=== PATIENT | male | born 1945 | race Caucasian/White ===

== ENCOUNTER 2023-03-28 13:49 | Outpatient (REF) | payer BC, SELFPAY ==
--- NOTE | ~2023-03-28 | XR_ITS ---
EXAMINATION: XR LUMBOSACRAL SPINE WITH OBLIQUES CLINICAL INFORMATION: Spinal stenosis, lumbar region with there are degenerative claudication. COMPARISON: None available. TECHNIQUE: AP view of the lumbar spine as well as lateral, flexion and extension views. FINDINGS: The bones are diffusely demineralized. Slight rightward curvature of the lumbar spine. Advanced degenerative changes in the imaged lower thoracic spine. Advanced facet arthritis in the [id number] lumbar spine. Multilevel lumbar spondylosis with moderate loss of disc space height at L4-L5. Grade 1 anterolisthesis of L4 and L5. Mild grade 1 retrolisthesis of L3 on L4. XR/XR lumbar spine 4V min IMPRESSION: 1. Advanced facet arthritis in the [id number] lumbar spine. 2. Multilevel lumbar spondylosis.
== END 2023-03-28 13:50 | disposition home or self-care (01) ==
LOC: HO.HOSX 13:49
PROVIDERS: PCP Student in an Organized Health Care Education/Training Program; Visit Provider Neurological Surgery
DX: M48.062 Spinal stenosis, lumbar region with neurogenic claudication (principal)
CPT/HCPCS: 72110

== ENCOUNTER 2023-03-28 13:49 | Outpatient (AMB) | payer BC, SELFPAY ==
--- NOTE | 2023-03-28 14:04 | HO.SPINEOV ---
Intake Intake Visit Reasons: spinal stenosis Intake Note: Mr. Colunga is here today c/o low back pain. MRI done @ [facility]. 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 HPI: This 77-year-old retired [employer] developed progressive numbness down both legs with walking and standing since June 2022. The symptoms are disabling. He can hardly walk or stand and constantly has to sit down. Leaning over a shopping cart improves the symptoms slightly. He adjusted his lifestyle to cope with the symptoms. One of them is walking with a cane or crutches. An MRI of the lumbar spine shows severe spinal stenosis L4-5, which prompted a surgical consultation. The following conservative treatment options were tried without success antiinflammatories, tylenol, physical therapy, cortisone shots PMH: Hypertension, bilateral knee replacements and multiple right hand surgery for tendons. Medications: Antihypertensivum Allergies: Penicillin, sulfa and shellfish Social history: . Retired. Nonsmoker Physical Exam: Pleasant male. He ambulates with a cane and has a positive Trendelenburg on exam. He is able to reproduce the symptoms in the office with standing. He describes that his legs are falling asleep. No motor deficits. No pathological reflexes. Upper extremities are intact for motor, sensation and reflexes. Radiological Studies: MRI of the lumbar spine done at [facility] on 12/30/2022 shows severe L4-L5 central spinal stenosis. There is a mild anterolisthesis of L4-L5. The remainder segments of the lumbar spine are unaffected. A standing dynamic x-ray obtained today shows no signs of instability. Impression/Plan: This 77-year-old male is suffering neurogenic claudication caused by severe L4-5 spinal stenosis. I offered him a L4-5 lumbar decompression to decompress the central canal. I described the procedure, complications and expected postoperative course. He wants to proceed. He is scheduled for 06/07/2023. He will stop his aspirin 1 week prior to surgery. Thank you for allowing me to participate in your patients care. total time spent was 50 minutes in counseling ,coordination of plan, personal review of imaging, surgical decision making and subsequent plan Angel Guevara MD, PhD Spine Fellowship Trained Neurosurgeon Director, [facility] Orders: Orders XR lumbar spine 4V min Today M48.062 - Spinal stenosis, lumbar region with neurogenic claudication Coding Level of Care Code New Pt Level 5 (52670) Diagnoses Lumbar stenosis with neurogenic claudication M48.062
== END 2023-03-28 15:00 ==
PROVIDERS: PCP Student in an Organized Health Care Education/Training Program; Referring Provider Physician Assistant; Visit Provider Neurological Surgery
DX: M48.062 Spinal stenosis, lumbar region with neurogenic claudication (principal)
CPT/HCPCS: 99205

== ENCOUNTER → 2023-05-17 13:07 | Outpatient (BNV) | payer MEDICARE, SELFPAY | PROVIDERS: PCP Student in an Organized Health Care Education/Training Program; Visit Provider Internal Medicine Cardiovascular Disease | DX: R94.31 Abnormal electrocardiogram [ECG] [EKG] (principal); I45.10 Unspecified right bundle-branch block | CPT/HCPCS: 93010 ==

== ENCOUNTER 2023-05-31 06:35 | Day surgery (SDC) | payer MEDICARE, SELFPAY ==
--- NOTE | 2023-05-17 | ECG_ITS ---
Test Reason : PREOP Blood Pressure : / mmHG Vent. Rate : 065 BPM Atrial Rate : 065 BPM P-R Int : 154 ms QRS Dur : 132 ms QT Int : 420 ms P-R-T Axes : 047 010 -02 degrees QTc Int : 436 ms Normal sinus rhythm Right bundle branch block Abnormal ECG No previous ECGs available Referred By: Bharti Nguyen Electronically Signed By:Miguel Bowen
[2023-05-17 12:33] VITALS: BP 118/64; PULSE 68; RESP 18; O2SAT 96; BMI 28.1
--- NOTE | 2023-05-17 12:45 | P.CONAN_ITS ---
HPI - Anesthesia Eval Consult details Narrative: 78yo M for L4-5 Lumbar Decompression No recent illness Stable angina ~ 8 days ago. Resolved with 1 nitro. Occurs ~ 1 x monthly Follows [facility]. Last office visit 12/2022. Echo and Stress 01/2023 OK. CAD s/p cath x 2. Stents x 2 2014 Gerd. Well controlled with ppi PMFSH Active Problems Active Problems: All Active Problems (Updated 05/17/23 @ 12:32 by Kelly Garcia RN) Lumbar stenosis with neurogenic claudication (Acute) Past Medical History Medical History GERD (gastroesophageal reflux disease) Back pain Renal cyst Osteoarthritis Diverticulosis BPH (benign prostatic hyperplasia) Numbness CAD (coronary artery disease) HTN (hypertension) Arthritis Family History Family history of problems with anesthesia: No Surgical History Surgical History Hx of shoulder surgery Hx of cataract extraction Hx of cardiac catheterization H/O colonoscopy Hx of hand surgery History of bilateral knee replacement Hx of hernia repair History of coronary artery stent placement Hx of cholecystectomy Hx of carpal tunnel repair History of Problems with Anesthesia: No (1 x vomit with oxycodone) Social History Social History Are you a primary hospice spiritual care coordinator to a significant other at home: No Do you presently have visiting nurse or other home services: No Patient Tobacco Use Status: Never used Tobacco Meds Allergies Allergy/AdvReac Type Severity Reaction Status Date / Time Penicillins Allergy Unknown Verified 05/31/23 06:51 shellfish derived Allergy Unknown Verified 05/31/23 06:51 Sulfa (Sulfonamide Allergy Unknown Verified 05/31/23 06:51 Antibiotics) Home Medications Medication Instructions Recorded Confirmed Last Taken Type acetaminophen 650 mg 650 mg PO DAILY PRN Pain 05/17/23 05/17/23 Unknown History tablet,extended release amlodipine 10 mg tablet 10 mg PO BEDTIME 05/17/23 05/17/23 Unknown History aspirin 81 mg tablet,delayed 81 mg PO BEDTIME 05/17/23 05/31/23 05/29/23 History release celecoxib 200 mg capsule 200 mg PO DAILY 05/17/23 05/17/23 Unknown History cholecalciferol (vitamin D3) 50 50 mcg PO DAILY 05/17/23 05/31/23 05/30/23 History mcg (2,000 unit) capsule (Vitamin D3) diclofenac sodium 1 % topical gel 2 g topical QID PRN Pain 05/17/23 05/17/23 Unknown History fluticasone propionate 50 2 spray intranasal DAILY PRN 05/17/23 05/17/23 Unknown History mcg/actuation nasal Allergic Symptoms spray,suspension gabapentin 300 mg capsule 300 mg PO BEDTIME PRN low back pain 05/17/23 05/31/23 05/30/23 History hydrochlorothiazide 12.5 mg capsule 12.5 mg PO QAM 05/17/23 05/31/23 05/30/23 History isosorbide mononitrate 30 mg 90 mg PO DAILY 05/17/23 05/31/23 05/31/23 History tablet,extended release 24 hr menthol 0.44 %-zinc oxide 20 % ea topical 05/17/23 Unknown History topical ointment metoprolol succinate 50 mg 50 mg PO DAILY 05/17/23 05/31/23 05/31/23 History tablet,extended release 24 hr multivitamin 1 tab PO DAILY 05/17/23 05/31/23 05/30/23 History nitroglycerin 0.4 mg sublingual 0.4 mg sublingual DIRECTED 05/17/23 05/17/23 Unknown History tablet omeprazole 40 mg capsule,delayed 40 mg PO DAILY 05/17/23 05/31/23 05/31/23 History release rosuvastatin 20 mg tablet 20 mg PO BEDTIME 05/17/23 05/31/23 05/30/23 History Exam Height,Weight and Vital Signs: Height 5 ft 9 in Weight 86.183 kg Last Vital Signs Pulse 68 05/17/23 12:33 Resp 18 05/17/23 12:33 BP 118/64 05/17/23 12:33 Pulse Ox 96 05/17/23 12:33 O2 Del Method Room Air 05/17/23 12:33 Pertinent Lab Results Pertinent Lab Results: 11/2022 outside CBC and BMP wnl except slight increase in creat. Narrative Narrative: EKG 04/2023 Vent. Rate : 065 BPM Atrial Rate : 065 BPM P-R Int : 154 ms QRS Dur : 132 ms QT Int : 420 ms P-R-T Axes : 047 010 -02 degrees QTc Int : 436 ms Normal sinus rhythm Right bundle branch block Abnormal ECG No previous ECGs available ECHO 02/2023 With contrast Nml LV chamber size. Mild conc LVH. Nml RWM. Nml LV systolic function. LVEF 55- 60%. Indeterminate LV diastolic function. Nml RV size and function. PASP could not be obstained. LA nml in size No hemodynamically significant valve disease Nuc stress 01/2023 Likely negative exercise stress with nuc imaging Nuc imaging revealed likely nml perfusion after attenuation correction was applied. A small, mild focus of apical inferior ischemia could not be excluded, however. Nml TID ratio RV function is nml Nml LV systolic fuction and RWM Airway Mallampati Class: II TM Dist: >3cm Neck ROM: Full Loose/Missing/Broken Teeth: Yes (molars pulled) Heart: RRR Lungs: CTAB Assessment and Plan Assessment Anesthesia Assessment: Anesthesia Plan Discussed and PAT Visit Final Anesthetic Review Family History of Problems with Anesthesia: No History of Problems with Anesthesia: No (1 x vomit with oxycodone)
[2023-05-31] VITALS (18 sets, daily range): BP systolic 109–132; BP diastolic 60–74; PULSE 61–80; RESP 16–18; TEMP 36.1–36.6; O2SAT 93–97; BMI 28.0
--- NOTE | ~2023-05-31 | FL_ITS ---
CLINICAL INDICATION: Claudication. FINDINGS: Technical assistance and equipment were provided by the Department of Radiology during intraoperative fluoroscopy for reported L4-L5 lumbar decompression. 1, limited fluoroscopic spot image is submitted. A radiologist was not present during the procedure. The image demonstrates surgical retractors and probe over the posterior elements at L4-L5. The image is available for review on PACS. TOTAL FLUOROSCOPY TIME: 0 minutes. DOSE AREA PRODUCT: 0.04 Gy-cm2 (leo-centimeter squared) FL/FL guidance in OR IMPRESSION: Technical assistance and equipment provided by the Department of Radiology during intraoperative fluoroscopy, as above. Please see operative report for further details.
[2023-05-31] MEDS: methocarbamoL 750 MG TABLET PO (07:20)
[2023-05-31] MEDS: vancomycin HCL 1,500 MG in 0.9 % Sodium Chloride 500 ML 333.33 MG IV (07:20)
[2023-05-31] MEDS: Gabapentin 300 MG CAPSULE PO (07:20)
[2023-05-31] MEDS: Lactated Ringers 1,000 ML 100 ML IVCONT (07:20)
--- NOTE | 2023-05-31 07:30 | MHC.SHP ---
Pre-Procedural Eval Section A - 24 Hr Update-Section A only Date of Service: 05/31/23 The patient is an INPATIENT: No Changes since office visit: No Cold of Flu in the past 2 weeks, No New Medical Problems, No Changes in Medication and No Patient answered all questions The patient has been examined within 24 hours of the surgical procedure. The History & Physical has been completed within 30 days and I have reviewed it.: No Section B - Complete if H&P > 30 days Chief Complaint: Spinal stenosis, lumbar region with neurogenic cla Allergies: Allergies Allergy/AdvReac Type Severity Reaction Status Date / Time Penicillins Allergy Unknown Verified 05/31/23 06:51 shellfish derived Allergy Unknown Verified 05/31/23 06:51 Sulfa (Sulfonamide Allergy Unknown Verified 05/31/23 06:51 Antibiotics) Review of Systems Sugical H&P ROS: Negative: Constitution, Cardiovascular, Respiratory, Neurological, Psychiatric, Hem-Onc, Allergic/Immunologic, Gastrointestinal, Genitourinary, Musculoskeletal, Integumentary, Endocrine and Eyes/Ears/Nose/Throat Exam Surgical H&P Exam: Not Evaluated: HEENT, Not Evaluated: Heart, Not Evaluated: Lungs, Not Evaluated: Extremities, Not Evaluated: Abdomen, Not Evaluated: Skin and Not Evaluated: Neurological Plan Diagnosis/Plan: Unchanged bilateral L4-5 decompression Time Spent With Patient Time: Total time managing care of this patient today _5___ minutes.
--- NOTE | 2023-05-31 07:32 | P.CONAN_ITS ---
[facility] Active Problems Active Problems: All Active Problems (Updated 05/17/23 @ 12:32 by Kelly Garcia RN) Lumbar stenosis with neurogenic claudication (Acute) Past Medical History Medical History GERD (gastroesophageal reflux disease) Back pain Renal cyst Osteoarthritis Diverticulosis BPH (benign prostatic hyperplasia) Numbness CAD (coronary artery disease) HTN (hypertension) Arthritis Family History Family history of problems with anesthesia: No Surgical History Surgical History Hx of shoulder surgery Hx of cataract extraction Hx of cardiac catheterization H/O colonoscopy Hx of hand surgery History of bilateral knee replacement Hx of hernia repair History of coronary artery stent placement Hx of cholecystectomy Hx of carpal tunnel repair History of Problems with Anesthesia: No (1 x vomit with oxycodone) Social History Social History Are you a primary day care home provider to a significant other at home: No Do you presently have visiting nurse or other home services: No Patient Tobacco Use Status: Never used Tobacco Use of substances other than those prescribed or required for medical reasons: No Have you been hit, kicked, punched, or otherwise hurt by someone within the past year? If so, by whom?: No Are you DNR?: No Advance Directives: No Advance Directives Information Provided: Yes Advance Directives on File: No Recently lost weight without trying: No Eating poorly because of decreased appetite: No Nutrition Risks: No Nutritional Risk Poor oral hygiene: No Meds Allergies Allergy/AdvReac Type Severity Reaction Status Date / Time Penicillins Allergy Unknown Verified 05/31/23 06:51 shellfish derived Allergy Unknown Verified 05/31/23 06:51 Sulfa (Sulfonamide Allergy Unknown Verified 05/31/23 06:51 Antibiotics) Active Medications: Current Medications Lactated Ringer's (Lr) 1,000 mls @ 100 mls/hr IVCONT .Q10H [facility] Last Admin: 05/31/23 07:20 Dose: 100 mls/hr Vancomycin HCl 1,500 mg/ (Sodium Chloride) 500 mls @ 333.333 mls/hr IV PREOP ONE Stop: 05/31/23 08:28 Last Admin: 05/31/23 07:20 Dose: 333.33 mls/hr Home Medications Medication Instructions Recorded Confirmed Last Taken Type acetaminophen 650 mg 650 mg PO DAILY PRN Pain 05/17/23 05/17/23 Unknown History tablet,extended release amlodipine 10 mg tablet 10 mg PO BEDTIME 05/17/23 05/17/23 Unknown History aspirin 81 mg tablet,delayed 81 mg PO BEDTIME 05/17/23 05/31/23 05/29/23 History release celecoxib 200 mg capsule 200 mg PO DAILY 05/17/23 05/17/23 Unknown History cholecalciferol (vitamin D3) 50 50 mcg PO DAILY 05/17/23 05/31/23 05/30/23 History mcg (2,000 unit) capsule (Vitamin D3) diclofenac sodium 1 % topical gel 2 g topical QID PRN Pain 05/17/23 05/17/23 Unknown History fluticasone propionate 50 2 spray intranasal DAILY PRN 05/17/23 05/17/23 Unknown History mcg/actuation nasal Allergic Symptoms spray,suspension gabapentin 300 mg capsule 300 mg PO BEDTIME PRN low back pain 05/17/23 05/31/23 05/30/23 History hydrochlorothiazide 12.5 mg capsule 12.5 mg PO QAM 05/17/23 05/31/23 05/30/23 History isosorbide mononitrate 30 mg 90 mg PO DAILY 05/17/23 05/31/23 05/31/23 History tablet,extended release 24 hr menthol 0.44 %-zinc oxide 20 % ea topical 05/17/23 Unknown History topical ointment metoprolol succinate 50 mg 50 mg PO DAILY 05/17/23 05/31/23 05/31/23 History tablet,extended release 24 hr multivitamin 1 tab PO DAILY 05/17/23 05/31/23 05/30/23 History nitroglycerin 0.4 mg sublingual 0.4 mg sublingual DIRECTED 05/17/23 05/17/23 Unknown History tablet omeprazole 40 mg capsule,delayed 40 mg PO DAILY 05/17/23 05/31/23 05/31/23 History release rosuvastatin 20 mg tablet 20 mg PO BEDTIME 05/17/23 05/31/23 05/30/23 History Exam Height,Weight and Vital Signs: Height 5 ft 9 in Weight 86 kg Last Vital Signs Temp 97.9 F 05/31/23 07:27 Pulse 74 05/31/23 07:27 Resp 16 05/31/23 07:27 BP 126/72 05/31/23 07:27 Pulse Ox 96 05/31/23 07:27 O2 Del Method Room Air 05/31/23 07:27 Airway Mallampati Class: III TM Dist: >3cm Neck ROM: Full Heart: RRR Lungs: TA Assessment and Plan Final Anesthetic Review Family History of Problems with Anesthesia: No History of Problems with Anesthesia: No (1 x vomit with oxycodone) NPO: Yes ASA Class: III Final Preanesthetic Review: Meds/Allgs Chart Reviewed, Consent Obtained/Reviewed and Anes Risks/Benef Reviewed Patient Risk: Intermediate Procedure Risk: Intermediate Anesthetic Plan Anesthetic Plan: GA Disposition: Standard PACU
--- NOTE | 2023-05-31 08:44 | PM.DS ---
DS: Providers Provider Date of Service: 05/31/23 Date of discharge: 05/31/23 Primary care physician: Ale Kim DO Admitting clinician: Angel Guevara DS: Diagnosis Discharge Diagnosis (1) Lumbar stenosis with neurogenic claudication: Status: Acute DS: Summary Time Attestation Discharge coordination time: Less than 30 minutes Quality: Safe Use of Opioids Does Pt have an Active Cancer Diagnosis on the Problem List?: No Quality: Stroke Does the patient have a stroke diagnosis?: No Physical Exam Vital Signs: Vital Signs: Last Vital Signs Temp 97.9 F 05/31/23 07:27 Pulse 74 05/31/23 07:27 Resp 16 05/31/23 07:27 BP 126/72 05/31/23 07:27 Pulse Ox 96 05/31/23 07:27 O2 Del Method Room Air 05/31/23 07:27 BMI result Body Mass Index 28.0 Discharge Plan Discharge Patient Disposition: Home, Self-Care Referrals: Ale Kim DO [Primary Care Provider] - 1 Week Discharge Medications: New docusate sodium [Colace] 100 mg capsule 100 mg PO BID Qty: 20 0RF oxycodone 5 mg tablet 5 mg PO Q4H PRN (Reason: pain) Qty: 30 0RF Rx Instructions: Partial Fill upon patient request. Continued multivitamin Tablet 1 tab PO DAILY celecoxib 200 mg capsule 200 mg PO DAILY metoprolol succinate 50 mg tablet extended release 24 hr 50 mg PO DAILY isosorbide mononitrate 30 mg tablet extended release 24 hr 90 mg PO DAILY omeprazole 40 mg capsule,delayed release(DR/EC) 40 mg PO DAILY aspirin 81 mg Tablet,Delayed Release (Dr/Ec) 81 mg PO BEDTIME amlodipine 10 mg tablet 10 mg PO BEDTIME hydrochlorothiazide 12.5 mg capsule 12.5 mg PO QAM nitroglycerin 0.4 mg tablet, sublingual 0.4 mg sublingual DIRECTED gabapentin 300 mg capsule 300 mg PO BEDTIME PRN (Reason: low back pain) fluticasone propionate 50 mcg/actuation [place],Suspension 2 spray INTRANASAL DAILY PRN (Reason: Allergic Symptoms) Rx Instructions: administer into each nostril rosuvastatin 20 mg tablet 20 mg PO BEDTIME diclofenac sodium 1 % Gel 2 g TOPICAL QID PRN (Reason: Pain) Rx Instructions: apply to single elbow, wrist or hand; for hand includes palm/fingers/back of hand cholecalciferol (vitamin D3) [Vitamin D3] 50 mcg (2,000 unit) Capsule 50 mcg PO DAILY menthol-zinc oxide 0.44-20 % Ointment TOPICAL acetaminophen 650 mg Tablet Extended Release 650 mg PO DAILY PRN (Reason: Pain) Discharge Orders: Discharge Order (Routine); Ordered 05/31/23 Ordered By: Sanjiv Jones Diet: Advance to usual diet Activity on Discharge: As tolerated Activity Restrictions/Additional Instructions: After your spinal surgery we ask you to observe the following restrictions/guidelines: Activity: It is normal to feel some discomfort as you increase your activity, but that will improve with time. We ask you avoid heavy lifting or acitivities that cause pain. As a general rule, 8lbs is a safe limit for lifting right after surgery. Walk as much as you feel comfortable but not to exhaustion. You will feel extra tired the first few days after surgery. Stay well hydrated. It is OK to walk up and down stairs You may return to driving when you are off narcotics (such as vicodin, oxycodone, dilaudid, etc), and you are back to normal functional capacity. If you have any concerns please check with office before driving. Return to work is specific to each patient and each surgery, so please speak with your doctor/PA at first follow up. Please bring paperwork such as FMLA at that time if you need it filled out. Medications: For optimum pain control, it is best to start with a combination of 500 mg of Tylenol every 4 hours with 600 mg of Motrin every 8 hours, and use narcotics as needed in between for breakthrough pain. We will give you a short supply of narcotics after surgery (usually one weeks worth). If you need more please call the office but do not use more than prescribed. You will need to give our office 48 hours notice if you need narcotics refilled and we do not fill narcotics on weekends or evenings. If you are on a narcotic, it is a good idea to take a stool softener such as colace or senna to avoid constipation If you take blood thinner such as aspirin, Plavix, Coumadin, Effient, Eliquis etc for conditions such as Afib, DVT, Pulmonary embolus, coronary disease, stents etc please speak with your surgeon about specific details as to when you can resume these medications. You can resume NSAIDs on post op day 1 (eg: Motrin, Naproxen, etc). Follow up: Please call the office, , after surgery to arrange a 3 week follow up for wound check. Wound Care: You may remove your dressing on the first day after surgery. ?You may ?leave open to air. Please do not remove the steri strips underneath. they will fall off on their own in one week. IT IS NORMAL FOR THE WOUND TO OOZE OR BE BLOODY FOR A FEW DAYS AFTER SURGERY. ?IF THIS HAPPENS JUST PLACE NEW DRESSING OVER IT TO AVOID STAINING CLOTHES. You may shower on post op day # 1 We ask that you do not let the water soak the wound. If it does get wet, just towel dry lightly. Please do not scrub your incision or place any type of chemical/ointment on the wound. No tub baths, pools or jacuzzis for one month. If you have any leaking or redness from your wound, or fevers, please call office
--- NOTE | 2023-05-31 10:10 | W.PM.OPN ---
Operative Note Operative Note Date of Service: 05/31/23 Narrative: Preoperative Diagnosis: L4-5 spinal stenosis/lateral recess stenosis/neural foraminal stenosis Operation: L4-5 Laminotomy, Partial facetectomy and foraminotomy with use of microscope Consent Informed Consent was obtained for this operation. I have explained the nature, purpose and benefits of the operation. I have discussed the risks and benefit of the operation including possible complications or adverse events with patient/family. Alternative(s) were discussed with the patient with their relative benefits and risks as well as the consequences of not accepting the operation were included in obtaining consent. Surgeon: ANGÉLICA MONTE MD, PHD Procedure Assisted By: Sanjiv Anderson Description of Procedure This 78-year-old male suffering from neurogenic claudication due to severe central spinal stenosis L4-5. The patient was offered a decompression. The procedure complications were explained. The patient was consented. The patient was brought to the operating room and endotracheally intubated. The patient was turned in prone position on the [place]ma frame. Prep and drape was done followed by timeout. The Physician hotel assistant manager provided access. A mid lumbar incision was made followed by release of the paravertebral muscle bilaterally to expose the L4-5 lamina and facet joints. An intraoperative x-ray was obtained to confirm the correct level. The microscope was brought in. I took over the procedure. The high-speed drill was used to do a L4-5 laminotomy until flavum ligament was reached. A #2 and 3 Kerrison were used to expand the laminotomy near flush to the pedicles and to include a partial facetectomy. The flavum ligament was opened and resected with a #3 Kerrison to decompress the underlying thecal sac. The flavum ligament was further removed to decompress the lateral recess and the exiting L5 nerve roots bilaterally. Severe central spinal and lateral recess stenosis was relieved. A long nerve hook could be easily passed along the medial side of the pedicles as a sign of adequate decompression. The microscope was removed. Hemostasis was done. The physician hotel assistant manager close the Incision in 2 layers. Steri-Strips were used to approximate incision. An OpSite with Tegaderm was used to cover the incision. All sponge needle counts were correct. Patient was extubated and transported in stable is to recovery room. Anesthesia: General Estimated Blood Loss (ml): 20 mL Complications: None Duration of Surgery: Under 60 Minutes Postoperative Plan: Discharge to home
--- NOTE | 2023-05-31 10:50 | HO.POSTANES ---
Post Anesthesia Evaluation Post Anesthesia Evaluation Date of Service: 05/31/23 Vital Signs: Vital Signs Temp Pulse Resp BP Pulse Ox O2 Del Method O2 Flow Rate 05/31/23 10:38 97 F 80 16 116/64 94 Nasal Cannula 3 05/31/23 07:27 97.9 F 74 16 126/72 96 Room Air Anesthesia: General Endotracheal-GETA Mental Status: Awake Pain Control: Satisfactory Nausea/Vomiting: None Hydration: Adequate Anesthesia-Related Issues: No Anes. Related Issues
[2023-05-31] MEDS: oxyCODONE HCl Immed Release 5 MG TABLET PO (11:20)
[2023-05-31] MEDS: fentaNYL citrate/PF 100 MCG/2 ML VIAL 25 MCG IVPUSH ×4 (11:21→11:36)
[2023-05-31] MEDS: ondansetron HCL 4 MG/2 ML VIAL IVPUSH (12:32)
[2023-05-31] MEDS: Nitroglycerin 0.4 MG TAB.SUBL SUBLINGUAL (13:06)
== END 2023-05-31 14:30 | disposition home or self-care (01) ==
PROVIDERS: PCP Student in an Organized Health Care Education/Training Program; Visit Provider Neurological Surgery
PROC: (CPT 63047; principal; 2023-05-31 09:20)
DX: M48.062 Spinal stenosis, lumbar region with neurogenic claudication (principal); I10 Essential (primary) hypertension; Z79.82 Long term (current) use of aspirin; Z79.899 Other long term (current) drug therapy; Z79.02 Long term (current) use of antithrombotics/antiplatelets
CPT/HCPCS: 63047; 93005; J0131; J1100; J1170; J1596; J1885; J2250; J2405; J2704; J3010; J3371

== ENCOUNTER → 2023-05-31 06:35 | Outpatient (BNV) | payer MEDICARE, SELFPAY | PROVIDERS: PCP Student in an Organized Health Care Education/Training Program; Visit Provider Neurological Surgery | DX: M48.062 Spinal stenosis, lumbar region with neurogenic claudication (principal) | CPT/HCPCS: 63047; 99499 ==

== ENCOUNTER 2023-06-21 10:59 | Outpatient (AMB) | payer MEDICARE, SELFPAY ==
--- NOTE | 2023-06-21 11:02 | HO.SPINEOV ---
Intake Intake Visit Reasons: 1st post op Intake Note: Mr. Colunga is here today for 1st post op. [employer] Gun[employer] Spotter Required: No Allergies Penicillins Allergy (Verified 05/31/23 06:51) Unknown shellfish derived Allergy (Verified 05/31/23 06:51) Unknown Sulfa (Sulfonamide Antibiotics) Allergy (Verified 05/31/23 06:51) Unknown Assessment & Plan Assessment & Plan (1) S/P spinal surgery: Code(s): Z98.890 - Other specified postprocedural states Plan Procedure: L4-5 Laminotomy, Partial facetectomy and foraminotomy Abiodun comes in today for his 1st postoperative visit. He reports he is overall satisfied with the surgery and has been feeling better than he did pre-operatively. He does still have some dull pain in his right posterior buttocks which he reports is waxing/waning in nature. He has been getting around his house well, and ambulates with the assistance of a cane. He has been compliant with the 8 lb weight restriction for lifting/carrying since surgery. He had many questions regarding his postoperative status, all of which were answered to the best of my ability. He has some very slight inflammation near his incision site which is not concerning, he also has the previously mentioned dull pain in his right buttocks which is also not concerning and is likely related to postoperative inflammation. We discussed how he should be setting a goal to walk 1/2-1 mile per day, and should slowly returned to normal activity utilizing a stepwise approach and being mindful of his recent back surgery. No new neurological deficits. Sensation grossly intact. Patient is able to ambulate well, rises from a seated position without difficulty. Incision sites are closed, well healing, with no signs of drainage. We will follow-up with the patient in 6 weeks for his 2nd postoperative visit. Perez Guevara MD,PhD [facility] Coding Level of Care Code Global (68636) Diagnoses S/P spinal surgery Z98.890
== END 2023-06-21 11:56 | disposition home or self-care (01) ==
PROVIDERS: PCP Student in an Organized Health Care Education/Training Program; Visit Provider Physician Assistant
DX: Z98.890 Other specified postprocedural states (principal)
CPT/HCPCS: 99024

== ENCOUNTER → 2023-06-21 10:59 | Outpatient (BNVA) | payer MEDICARE, SELFPAY | PROVIDERS: PCP Student in an Organized Health Care Education/Training Program; Visit Provider Physician Assistant | DX: Z98.890 Other specified postprocedural states (principal) | CPT/HCPCS: 99212 ==

== ENCOUNTER 2023-08-02 10:20 | Outpatient (AMB) | payer MEDICARE, SELFPAY ==
--- NOTE | 2023-07-12 09:21 | A.SPINEOV_ITS ---
Intake Intake Visit Reasons: 2nd post up Intake Note: Mr. Colunga is here today for 2nd post-op. 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 We discussed his surgery, and current guidelines/limitations regarding postoperative care. He asked many questions, all of which I answered to the best of my ability. We briefly discussed his return to activity, specifically golfing. Unfortunately this activity causes quite a bit of bending/twisting in the low back. He was advised against going directly back to full activity, and encouraged to slowly start engaging in regular activities in a stepwise approach, gradually increasing what he is doing. No new neurological deficits. Patient is able to ambulate well, rises from a seated position without difficulty. Incision site is closed, well healing, with no signs of drainage. I will be sending Abiodun for a course of physical therapy as he still has some tightness in his low back and requested some extra strength training. There is no need for continued routine follow-up with Abiodun at this point. Perez Guevara MD,PhD [facility] Orders: Orders PT Evaluation and Treatment Today Z98.890 - Other specified postprocedural states Coding Level of Care Code Global (32684) Diagnoses S/P spinal surgery Z98.890
== END 2023-08-02 11:01 | disposition home or self-care (01) ==
PROVIDERS: PCP Student in an Organized Health Care Education/Training Program; Visit Provider Physician Assistant
DX: Z98.890 Other specified postprocedural states (principal)
CPT/HCPCS: 99024

== ENCOUNTER → 2023-08-02 10:20 | Outpatient (BNVA) | payer MEDICARE, SELFPAY | PROVIDERS: PCP Student in an Organized Health Care Education/Training Program; Visit Provider Physician Assistant | DX: Z98.890 Other specified postprocedural states (principal) | CPT/HCPCS: 99212 ==

== ENCOUNTER 2023-09-05 06:53 | Emergency (ER) | payer MEDICARE, SELFPAY ==
--- NOTE | ~2023-09-05 | XR_ITS ---
EXAMINATION: XR LUMBOSACRAL SPINE CLINICAL INFORMATION: History of L4-L5 decompression in May 2023. Left-sided sciatica after back surgery in May. COMPARISON: 05/31/2023 fluoroscopy images, 03/28/2023 x-ray lumbar spine. TECHNIQUE: Three views of the lumbosacral spine. FINDINGS: Mild dextroscoliosis of the lumbar spine. The bones are diffusely demineralized. Degenerative changes on limited views of the bilateral hips and sacroiliac joints. Advanced facet arthritis in the mid to lower lumbar spine. History of L4-L5 decompression in May 2023. Multilevel lumbar spondylosis with moderate loss of disc space height at L4-L5. Grade 1 anterolisthesis of L4 on L5. Mild loss of height of T12 and L1 vertebral bodies. XR/XR lumbar spine 2-3V IMPRESSION: 1. Multilevel lumbar spondylosis with moderate loss of disc space height at L4-L5. Grade 1 anterolisthesis of L4 on L5. 2. Advanced facet arthritis in the [id number] lumbar spine. 3. Mild loss of height of T12 and L1 vertebral bodies. 4. History of L4-L5 decompression in May 2023.
--- NOTE | ~2023-09-05 | US_ITS ---
EXAMINATION: US VENOUS ULTRASOUND WITH DOPPLER LOWER EXTREMITY, LEFT CLINICAL INFORMATION: Status post surgery 2 months ago, now complains of Left leg pain and swelling COMPARISON: None available. TECHNIQUE: Ultrasound of the deep veins is performed from the hip to the calf with compression sonography and color and pulse Doppler assessment. Spectral analysis with color-flow imaging is performed. FINDINGS: There is normal venous compression and respiratory variation and augmented flow. The visualized common femoral vein, superficial femoral vein, profunda femoral vein, popliteal vein, and the trifurcation region shows no evidence of deep venous thrombosis. There is no significant popliteal fossa cyst. If the patient's symptoms persist, followup ultrasound in 5 days 7 days might be of value to exclude proximal propagation from a non-visualized calf vein. US/US venous duplex LE IMPRESSION: No DVT demonstrated in the left lower extremity.
[2023-09-05 07:04] VITALS: BP 147/51; PULSE 76; O2SAT 97
[2023-09-05 07:06] VITALS: BP 150/81; PULSE 69; RESP 17; TEMP 37.1; O2SAT 97; BMI 28.6
--- NOTE | 2023-09-05 07:16 | ED_ITS ---
HPI - General Adult General Chief complaint: Extremity Injury, Lower Stated complaint: unable to ambulate Time Seen by Provider: 09/05/23 07:16 History of Present Illness HPI narrative: The patient is a 78-year-old male who had surgery, 3 months ago on 05/31/2023. He had an L4-5 laminotomy, a partial facetectomy, and foraminotomy performed by Dr. Guevara. The patient says that he went home after the surgery. He recovered for 9 weeks at home before starting physical therapy last week. The patient says that over the last week he has developed a new pain syndrome. This is pain in his left leg that he feels mostly in his left buttock and down the left leg into his left foot. He says that he was well enough [address] himself from [place] to [place] for his grandson's graduation. He says that he had to stand for a long time at the ceremony and after the ceremony he had worsening pain that can left leg. He went to physical therapy the next day on Sunday, 2 days ago. He had a lot of pain when he was at physical therapy and physical therapist applied a TENS unit. Despite this therapy the patient's pain has worsened and today he came to the emergency room by ambulance because he could not bear weight on the left leg because of pain. He has had no fever, sweats, chills. No difficulty with urination or passing stool. Related Data Home Medications ?Medication ?Instructions ?Recorded ?Confirmed acetaminophen 650 mg 650 mg PO DAILY PRN Pain 05/17/23 05/17/23 tablet,extended release amlodipine 10 mg tablet 10 mg PO BEDTIME 05/17/23 05/17/23 aspirin 81 mg tablet,delayed 81 mg PO BEDTIME 05/17/23 05/31/23 release celecoxib 200 mg capsule 200 mg PO DAILY 05/17/23 05/17/23 cholecalciferol (vitamin D3) 50 50 mcg PO DAILY 05/17/23 05/31/23 mcg (2,000 unit) capsule (Vitamin D3) diclofenac sodium 1 % topical gel 2 g topical QID PRN Pain 05/17/23 05/17/23 fluticasone propionate 50 2 spray intranasal DAILY PRN 05/17/23 05/17/23 mcg/actuation nasal Allergic Symptoms spray,suspension gabapentin 300 mg capsule 300 mg PO BEDTIME PRN low back pain 05/17/23 05/31/23 hydrochlorothiazide 12.5 mg capsule 12.5 mg PO QAM 05/17/23 05/31/23 isosorbide mononitrate 30 mg 90 mg PO DAILY 05/17/23 05/31/23 tablet,extended release 24 hr menthol 0.44 %-zinc oxide 20 % ea topical 05/17/23 topical ointment metoprolol succinate 50 mg 50 mg PO DAILY 05/17/23 05/31/23 tablet,extended release 24 hr multivitamin 1 tab PO DAILY 05/17/23 05/31/23 nitroglycerin 0.4 mg sublingual 0.4 mg sublingual DIRECTED 05/17/23 05/17/23 tablet omeprazole 40 mg capsule,delayed 40 mg PO DAILY 05/17/23 05/31/23 release rosuvastatin 20 mg tablet 20 mg PO BEDTIME 05/17/23 05/31/23 Previous Rx's ?Medication ?Instructions ?Recorded docusate sodium 100 mg capsule 100 mg PO BID #20 caps 05/31/23 (Colace) oxycodone 5 mg tablet 5 mg PO Q4H PRN pain #30 tabs 05/31/23 oxycodone 5 mg tablet 5 mg PO Q6H PRN pain #20 tabs 09/05/23 Allergies Allergy/AdvReac Type Severity Reaction Status Date / Time Penicillins Allergy Unknown Verified 09/05/23 07:08 shellfish derived Allergy Unknown Verified 09/05/23 07:08 Sulfa (Sulfonamide Allergy Unknown Verified 09/05/23 07:08 Antibiotics) Review of Systems 2 Review of Systems: Yes all other systems are reviewed and are negative [facility] Past Medical History Medical History GERD (gastroesophageal reflux disease) Back pain Renal cyst Osteoarthritis Diverticulosis BPH (benign prostatic hyperplasia) Numbness CAD (coronary artery disease) HTN (hypertension) Arthritis Surgical History Hx of shoulder surgery Hx of cataract extraction Hx of cardiac catheterization H/O colonoscopy Hx of hand surgery History of bilateral knee replacement Hx of hernia repair History of coronary artery stent placement Hx of cholecystectomy Hx of carpal tunnel repair Social History Social History Are you a primary care information associate to a significant other at home: No Do you presently have visiting nurse or other home services: No Patient Tobacco Use Status: Never used Tobacco Smoked in Last 30 Days: No Use of substances other than those prescribed or required for medical reasons: No Advance Directives: Yes Advance Directives on File: No Do you have a plan to hurt others: No Plan Physical Exam ED Vital Signs: Vital Signs - 24 hr 09/05/23 07:06 09/05/23 10:05 09/05/23 12:08 Temperature 98.7 F 97.8 F 97.4 F Pulse Rate 69 64 62 Respiratory Rate 17 14 12 Blood Pressure 150/81 H 144/70 H 129/70 Pulse Oximetry 97 96 94 Oxygen Delivery Method Room Air Room Air Room Air 09/05/23 13:31 Temperature 98 F Pulse Rate 76 Respiratory Rate 19 Blood Pressure 138/76 Pulse Oximetry 98 Oxygen Delivery Method BMI result Body Mass Index 28.6 Const Other: The patient is awake and alert. He is pleasant and cooperative. He does not appear in overt distress or in obvious severe discomfort HENMT Other: Face is symmetrical, mucous membranes moist Eyes Other: Pupils are round equal, no scleral icterus Neck Neck: Yes no JVD Resp Effort & Inspection: normal respiratory effort Auscultation: clear to auscultation bilaterally Cardio Rate: regular rate Rhythm: regular rhythm Heart sounds: S1 normal heart sound present and S2 normal heart sound present GI Other: Abdomen is soft and nontender Skin Other: Skin is dry and unremarkable Neuro Other: The patient has intact sensation in the legs. Was able to walk with a walker and when he walked there was no footdrop. No gross weakness in the leg. Minimal reflexes at the knees and toes bilaterally. Toes go down bilaterally. Extrem Other: No significant findings with straight leg raise on either side. Mild diffuse right leg tenderness without gross edema. Medications Administered Discontinued Medications Generic Name Dose Route Start Last Admin Trade Name Freq PRN Reason Stop Dose Admin Hydromorphone HCl 1 mg 09/05/23 07:37 09/05/23 07:47 Hydromorphone Hcl 1 Mg/Ml Syringe IM 09/05/23 07:38 1 mg ONCE ONE Administration Protocol Ketorolac Tromethamine 30 mg 09/05/23 08:05 09/05/23 08:19 Ketorolac Tromethamine 30 Mg/Ml Vial IM 09/05/23 08:06 30 mg ONCE ONE Administration Oxycodone HCl 5 mg 09/05/23 10:43 09/05/23 10:49 Oxycodone Hcl Immed Release 5 Mg Tablet PO 09/05/23 10:44 5 mg ONCE ONE Administration Medical Decision Making Differential Diagnosis The patient is 3 months status post back surgery. The patient says that prior to his back surgery he was having severe debilitating back pain. He does not describe a history of previous sciatica. He says that he did very little for 9 weeks following the surgery and only recently started physical therapy. He now has pain in his left leg that he feels primarily in the left buttock and the left leg generally and on the top of his foot. He says that his symptoms are much worse after standing for a long time at a graduation ceremony in [place] this weekend. Clinically the patient's description of the symptoms are mostly consistent with sciatica. He has not exhibiting any red flags from the point of view of an acute neurosurgical emergency. The patient was concerned about the possibility of a blood clot in the left leg. A DVT ultrasound was negative. An x-ray of his lumbar spine shows what I think are chronic changes but no acute changes. The patient was treated with IM ketorolac and I am hydromorphone. He is able to walk with a walker. He will be discharged with a prescription for oxycodone. He will be advised to take 2 extra-strength acetaminophen up to 3 times a day. He should follow up with his wharf hand and back surgeon. Dr. Guevara was informed of the patient's presentation. Lab Data 09/05/23 07:41 09/05/23 07:41 Labs: Lab Results 09/05/23 09/05/23 Range/Units 07:38 07:41 WBC 6.5 (4.8-10.8) X10*3/uL RBC 5.34 (4.60-5.80) X10*6/uL Hgb 16.3 (14.0-18.0) g/dl Hct 47.5 (42.0-52.0) % MCV 89.0 (80.0-98.0) fL MCH 30.5 (27.0-33.0) pg MCHC 34.3 (31.0-36.0) g/dl RDW 12.8 (11.0-16.0) % Plt Count 180 (160-400) X10*3/uL MPV 9.8 (9.4-12.4) fL Immature Gran % (Auto) 0.3 (0.0-0.4) % Neut % (Auto) 63.5 (45-73) % Lymph % (Auto) 23.2 (20-40) % [place]ades % (Auto) 9.0 (2-11) % Eos % (Auto) 3.1 (0-4) % Baso % (Auto) 0.9 (0-2) % Lymph # (Auto) 1.5 (1.2-4.9) X10*3/uL [place] # (Auto) 0.6 (0.1-1.2) X10*3/uL Eos # (Auto) 0.2 (0.0-0.4) X10*3/uL Baso # (Auto) 0.1 (0.0-0.2) X10*3/uL Abs Immat Gran (auto) 0.02 (0.00-0.03) X10*3/uL Absolute Neuts (auto) 4.2 (2.0-8.3) x10*3/uL Absolute Nucleated RBC 0.000 (0.0-0.012) X10*3/uL Nucleated RBC % (auto) 0.0 (0.0-0.2) /100WBC Sodium 144 (135-145) mmol/L Potassium 3.6 (3.3-5.1) mmol/L Chloride 106 (96-108) mmol/L Carbon Dioxide 28 (22-29) mmol/L Anion Gap 14 (12-20) BUN 19 H (9-16) mg/dL Creatinine 1.18 (0.5-1.4) mg/dL Estim Creat Clear Calc 58.4 Estimated GFR > 60 Random Glucose 111 (60-115) mg/dL Calcium 10.0 (8.4-10.2) mg/dL Total Bilirubin 0.7 (0.0-1.0) mg/dL Direct Bilirubin 0.2 (0.0-0.5) mg/dL AST 22 (5-37) U/L ALT 19 (0-40) U/L Alkaline Phosphatase 69 (39-117) U/L Total Protein 6.7 (6.5-8.0) g/dL Albumin 4.1 (3.5-5.0) g/dL Urine Color Yellow Urine Appearance Clear Urine pH 7.0 (5.0-9.0) Ur Specific [place] <= 1.005 (1.005-1.025) Urine Protein Negative (Neg-Trace) mg/dL Urine Glucose (UA) Negative (Negative) mg/dL Urine Ketones Negative (Negative) mg/dL Urine Blood Negative (Negative) Urine Nitrite Negative (Negative) Ur Leukocyte Esterase Small (1+) H (Negative) Urine RBC 0-2 (0-2) /HPF Urine WBC 0-5 (0-5) /HPF Ur Squamous Epith Cells 0-2 (0-2) /HPF Urine Bacteria None Seen (None Seen) Hyaline Casts 0-2 (0-2) /LPF Discharge Plan Discharge Clinical Impression: Left sided sciatica Patient Disposition: Home, Self-Care Instructions: Sciatica (ED) Additional Instructions: The pain you are experiencing seems consistent with a sciatica, a common cause of pain that shoots down a leg. For pain relief please take 2 extra-strength Tylenol up to 3 times a day. I have also sent a prescription for oxycodone tablets that you may use as necessary when your pain is bad. You may also take occasional ibuprofen. Please contact Dr. Guevara and Dr. Garcia or your primary care doctor to arrange for follow up and further evaluation and further recommendations. Also continue to see your physical therapist. Return to the emergency room if significantly worse. Prescriptions: New oxycodone 5 mg tablet 5 mg PO Q6H PRN (Reason: pain) Qty: 20 0RF Rx Instructions: Partial Fill upon patient request. No Action multivitamin Tablet 1 tab PO DAILY celecoxib 200 mg capsule 200 mg PO DAILY metoprolol succinate 50 mg tablet extended release 24 hr 50 mg PO DAILY isosorbide mononitrate 30 mg tablet extended release 24 hr 90 mg PO DAILY omeprazole 40 mg capsule,delayed release(DR/EC) 40 mg PO DAILY aspirin 81 mg Tablet,Delayed Release (Dr/Ec) 81 mg PO BEDTIME amlodipine 10 mg tablet 10 mg PO BEDTIME hydrochlorothiazide 12.5 mg capsule 12.5 mg PO QAM nitroglycerin 0.4 mg tablet, sublingual 0.4 mg sublingual DIRECTED gabapentin 300 mg capsule 300 mg PO BEDTIME PRN (Reason: low back pain) fluticasone propionate 50 mcg/actuation [place],Suspension 2 spray INTRANASAL DAILY PRN (Reason: Allergic Symptoms) Rx Instructions: administer into each nostril rosuvastatin 20 mg tablet 20 mg PO BEDTIME diclofenac sodium 1 % Gel 2 g TOPICAL QID PRN (Reason: Pain) Rx Instructions: apply to single elbow, wrist or hand; for hand includes palm/fingers/back of hand cholecalciferol (vitamin D3) [Vitamin D3] 50 mcg (2,000 unit) Capsule 50 mcg PO DAILY menthol-zinc oxide 0.44-20 % Ointment TOPICAL acetaminophen 650 mg Tablet Extended Release 650 mg PO DAILY PRN (Reason: Pain) docusate sodium [Colace] 100 mg capsule 100 mg PO BID Qty: 20 0RF oxycodone 5 mg tablet 5 mg PO Q4H PRN (Reason: pain) Qty: 30 0RF Rx Instructions: Partial Fill upon patient request. Referrals: Giacomo Garcia MD [Physician] - (left sided sciatica) Angel Guevara MD, PhD [Physician] - (left sided sciatica) Interventions: ED Discharge Assessment Last Done: 09/05/23 13:31 Discharge Date/Time: 09/05/23 13:34 Print Language: Japanese
--- OUTSIDE RECORDS SUMMARY | 2023-09-05 07:22 | XMS_ITS | Continuity of Care Document ---
Author Organization [facility] Address [address] [place] [address]- Care Team Providers Care Oil Developer Name Role Phone Richard KLEIN, Laila Alejo Primary Care Physician Encounter [facility] Date(s): 10/27/19 - 11/26/19 [facility] [address] [place] [address]- [facility] Attending Physician: Chandan Mao Admitting Physician: Chandan Mao Referring Physician: trChandan Allergies, Adverse Reactions, Alerts Substance Reaction Severity Status penicillins facial swelling Active sulfa drugs facial swelling Active shellfish difficulty breathing Active Medications acetaminophen 325 mg oral tablet 650 mg, By Mouth, Every 6 hours, Refills 0, Maintenance, 05/12/17 9:33:00 Start Date: 05/12/17 Status: Ordered amLODIPine 10 mg oral tablet 10 mg, By Mouth, Daily, Refills 0, Maintenance, 05/12/17 9:33:05 Start Date: 05/12/17 Status: Ordered aspirin 81 mg oral delayed release tablet 81 mg, 1, tablet, By Mouth, Daily, # 30 tablet, Refills 0, Maintenance, 07/01/18 14:45:09 EDT Start Date: 07/01/18 Status: Ordered celecoxib 200 mg oral capsule 1 capsule = 200 mg, By Mouth, Daily, PRN for pain, # 10 capsule, 0 Refills, Maintenance, 07/08/19 14:50:00 EDT, Capsule Start Date: 07/08/19 Status: Ordered Centrum Silver Men's 1 tablet, By Mouth, Daily, 0 Refills, Maintenance, 07/01/18 14:50:14 EDT Start Date: 07/01/18 Status: Ordered Fiber capsules Fiber capsules, Refills 0, Maintenance, 07/08/19 14:50:00 EDT, Supply Start Date: 07/08/19 Status: Ordered isosorbide mononitrate 60 mg oral tablet, extended release 60 mg, 1, tablet, By Mouth, 2 times a day, Refills 0, Maintenance, 05/12/17 9:32:53 EST Start Date: 05/12/17 Stop Date: 07/31/18 Status: Ordered metoprolol 100 mg oral tablet, extended release 50 mg, 0.5, tablet, By Mouth, Daily, Refills 0, Maintenance, 05/12/17 9:33:44 EST Start Date: 05/12/17 Status: Ordered Nitroglycerin 0 Refills, Maintenance, 09/04/19 16:12:00 EDT Start Date: 09/04/19 Status: Ordered omeprazole 40 mg oral enteric coated capsule 1 capsule = 40 mg, By Mouth, 2 times a day, 0 Refills, Maintenance, 01/11/17 8:59:00 Start Date: 01/11/17 Status: Ordered rosuvastatin 20 mg oral capsule 1 capsule = 20 mg, By Mouth, Daily, 0 Refills, Maintenance, 07/08/19 14:49:00 EDT Start Date: 07/08/19 Status: Ordered Vitamin D3 oral tablet 1 tablet = 400 International_Units, By Mouth, Daily, # 30 tablet, 0 Refills, Maintenance, 07/01/18 14:49:26 EDT, Tablet Start Date: 07/01/18 Status: Ordered Voltaren 1% topical gel 1 application, Topically, 4 times a day, PRN for pain, # 100 Gm, 0 Refills, Maintenance, 09/09/19 8:46:00 EDT, Gel Start Date: 09/09/19 Status: Ordered Problem List Condition Effective Dates Status Health Status Inform ant Neoplasm of gallbladder(Confirmed) Active Social History Social History Type Response Smoking Status Never smoker; Tobacc o user in household: No entered on: 03/05/14 Sex
--- OUTSIDE RECORDS SUMMARY | 2023-09-05 07:23 | XMS_ITS | Continuity of Care Document ---
Author Organization [facility] Address [address] [place], [place] [address] [address] [place] [address]- Care Team Providers Care Associate Professor Of English Name Role Phone IndiraAle mcwilliams DO Primary Care Physician Encounter [facility] Date(s): 10/19/21 - 10/26/21 [facility] [address] [place], [place] [address] Attending Physician: Gregorio Thomas MD Allergies, Adverse Reactions, Alerts Substance Reaction Severity [...] 14:45:09 EDT Start Date: 07/01/18 Status: Ordered CeleBREX 200 mg oral capsule 1 capsule = 200 mg, By Mouth, Daily, 0 Refills, Maintenance, 03/04/21 14:31:00 EST, Partial fill upon patient request if the prescription is for a schedule II opioid drug. Start Date: 03/04/21 Status: Ordered Centrum Silver Men's 1 tablet, By Mouth, Daily, 0 Refills, Maintenance, 07/01/18 14:50:14 EDT Start Date: 07/01/18 Status: Ordered Fiber capsules Fiber capsules, Refills 0, Maintenance, 07/08/19 14:50:00 EDT, Supply Start Date: 07/08/19 Status: Ordered gabapentin 300 mg oral capsule 300 mg, 1, capsule, By Mouth, 2 times a day, Refills 0, Maintenance, 01/16/20 16:46:00 EDT Start Date: 01/16/20 Status: Ordered hydroCHLOROthiazide 12.5 mg oral capsule 1 capsule = 12.5 mg, By Mouth, Daily, 0 Refills, Maintenance, 03/04/21 14:31:00 EST, Partial fill upon patient request if the prescription is for a schedule II opioid drug. Start Date: 03/04/21 Status: Ordered isosorbide mononitrate 60 mg oral [...] 01/11/17 8:59:00 Start Date: 01/11/17 Status: Ordered Rosuvastatin By Mouth, Daily, 0 Refills, Maintenance, 03/04/21 14:32:00 EST, Partial fill upon patient request if the prescription is for a schedule II opioid drug. Start Date: 03/04/21 Status: Ordered Vitamin D3 oral tablet 1 [...] Effective Dates Status Health Status Inform ant Angina pectoris, unspecified(Confirmed) Active CAD (coronary artery disease)(Confirmed) Active Esophageal spasm(Confirmed) Active Hyperlipidemia(Confirmed) Active Hypertension(Confirmed) Active Neoplasm of gallbladder(Confirmed) Active Vital Signs Most recent to oldest [Reference Range]: 1 Height 175 cm (10/19/21 9:18 AM) Temperature [96.8-100.4 DegF] 96.7 DegF *L* (10/19/21 9:18 AM) Temperature Route Temporal (10/19/21 9:18 AM) Social History Social History Type Response Smoking Status Never smoker; Tobacc o user in household: No entered on: 03/05/14 Sex
--- OUTSIDE RECORDS SUMMARY | 2023-09-05 07:23 | XMS_ITS | Continuity of Care Document ---
Author Organization [facility]esh [place], [place] Address [address] [place] [address] [address] [place] [address]- Care Team Providers Care Biostatistician Name Role Phone Ale Kim DO Primary Care Physician Encounter [facility] Date(s): 08/23/21 - 09/22/21 [facility] [address] [place], [place] [address] Attending Physician: Chandan Mao Admitting Physician: Chandan Mao Referring Physician: AdmtrChandan Allergies, Adverse Reactions, Alerts Substance Reaction Severity [...] Active Hypertension(Confirmed) Active Neoplasm of gallbladder(Confirmed) Active Social History Social History Type Response Smoking Status Never smoker; Tobacc o user in household: No entered on: 03/05/14 Sex
--- OUTSIDE RECORDS SUMMARY | 2023-09-05 07:23 | XMS_ITS | Continuity of Care Document ---
Author Organization [facility] Rajesh dale Address [address] [place], [place] [address] ve [address] [place] [address]- Care Team Providers Care Building Guard Deputy Sheriff Name Role Phone Ale Kim DO Primary Care Physician Encounter [facility] [place] Date(s): 09/05/21 - 09/12/21 [facility] [address] [place] [address] Drive [address] [place], [place] [address] Attending Physician: Not on Staff, Attending MD Allergies, Adverse Reactions, Alerts Substance Reaction [...] oldest [Reference Range]: 1 Height 175 cm (09/05/21 10:36 AM) Weight 86.81 kg (09/05/21 10:36 AM) Body Mass Index [18.5-24.99] 28.35 *H* (09/05/21 10:36 AM) Weight Obtained Via Standing scale (09/05/21 10:36 AM) Social History Social History Type Response Smoking Status Never smoker; Tobacc o user in household: No entered on: 03/05/14 Sex
--- OUTSIDE RECORDS SUMMARY | 2023-09-05 07:23 | XMS_ITS | Continuity of Care Document ---
Author Organization [facility] ter Address [address] [place] [address]- Care Team Providers Care Exercise Scientist Name Role Phone Richard KLEIN, Laila Alejo Primary Care Physician [place] [facility] [place] - 09/13/[address] [address]- [facility] Attending Physician: Cole Tesfaye MD Allergies, Adverse Reactions, Alerts Substance Reaction [...] Status Inform ant Neoplasm of gallbladder(Confirmed) Active Vital Signs Most recent to oldest [Reference Range]: 1 Height 171 cm (07/09/19 4:03 PM) Social History Social History Type Response Smoking Status Never smoker; Tobacc o user in household: No entered on: 03/05/14 Sex
--- OUTSIDE RECORDS SUMMARY | 2023-09-05 07:23 | XMS_ITS | Continuity of Care Document ---
Author Organization [facility] Rajesh dale Address [address] [place] [address] [address] [place] [address]- Care Team Providers Care Porcelain Technician Name Role Phone Not on Staff, PCP Primary Care Physician Unavail able [place] [facility] [place] 09/04/21 [facility] [address] [place], [place] [address] Allergies, Adverse Reactions, Alerts Substance Reaction Severity [...]
--- OUTSIDE RECORDS SUMMARY | 2023-09-05 07:23 | XMS_ITS | Continuity of Care Document ---
Author Organization [facility] Rajesh dale Address [address] [place] [address] [address] [place] [address]- Care Team Providers Care Senior Software Engineer Name Role Phone Ale Kim DO Primary Care Physician En[place] [facility] [place] Date(s): 08/05/21 - 11/27/21 [facility] [address] [place] [address] Drive [address] [place], [place] [address] Attending Physician: Gregorio Thomas MD Referring Physician: Kat Casillas MD Allergies, Adverse Reactions, Alerts Substance Reaction [...]
--- OUTSIDE RECORDS SUMMARY | 2023-09-05 07:23 | XMS_ITS | Continuity of Care Document ---
Author Organization [facility] Rajesh dale Address [address] [place] [address] [address] [place] [address]- Care Team Providers Care Herb Grower Name Role Phone Not on Staff, PCP Primary Care Physician Unavail able Encounter [facility] [place] Date(s): 08/23/21 - 08/30/21 [facility] [address] [place], [place] [address] Attending Physician: Gregorio Thomas MD Allergies, Adverse [...] opioid drug. Start Date: 03/04/21 Status: Ordered Tylenol Extra Strength 500 mg oral tablet 1 tablet = 500 mg, By Mouth, Every 6 hours, PRN as needed for pain, for 14 days, (no more than 4 tabs a day), # 50 tablet, 0 Refills, Acute 08/31/21 14:28:00 EDT, 08/17/21 14:28:00 EDT, Tablet, [facility], Partial fill upon patient re... Start Date: 08/17/21 Stop Date: 08/31/21 Status: Ordered Vitamin D3 oral tablet 1 [...] oldest [Reference Range]: 1 Height 175 cm (08/23/21 2:19 PM) Social History Social History Type Response Smoking Status Never smoker; Tobacc o user in household: No entered on: 03/05/14 Sex
--- OUTSIDE RECORDS SUMMARY | 2023-09-05 07:23 | XMS_ITS | Continuity of Care Document ---
Author Organization [facility] ter Address [address] [place] [address]- Care Team Providers Care Php Engineer Name Role Phone Richard KLEIN, Laila Alejo Primary Care Physician [phone] [place] [facility] [place] - 08/30/[address] [address]- [facility] Attending Physician: Cole Tesfaye MD Allergies, Adverse [...] 14:50:14 EDT Start Date: 07/01/18 Status: Ordered docusate sodium 100 mg oral capsule 100 mg, 1, capsule, By Mouth, 2 times a day, Refills 0, Maintenance, 05/12/17 9:33:37 Start Date: 05/12/17 Status: Ordered Fiber capsules Fiber capsules, Refills [...] 9:33:44 EST Start Date: 05/12/17 Status: Ordered Milk of Magnesia Liquid 30 mL, By Mouth, Daily, PRN Constipation, 0 Refills, Maintenance, 05/12/17 9:33:49, Suspension Start Date: 05/12/17 Status: Ordered MiraLax Powder 1 pack/packet = 17 Gm, By Mouth, Daily, 0 Refills, Maintenance, 05/12/17 9:34:04, Powder Start Date: 05/12/17 Status: Ordered omeprazole 40 mg oral enteric coated capsule 1 capsule = 40 mg, By Mouth, 2 times a day, 0 Refills, Maintenance, 01/11/17 8:59:00 Start Date: 01/11/17 Status: Ordered rosuvastatin 20 mg oral capsule 1 capsule = 20 mg, By Mouth, Daily, 0 Refills, Maintenance, 07/08/19 14:49:00 EDT Start Date: 07/08/19 Status: Ordered senna 187 mg oral tablet 1 tablet = 8.6 mg, By Mouth, Daily at bedtime, 0 Refills, Maintenance, 05/12/17 9:34:07, Tablet Start Date: 05/12/17 Status: Ordered Vitamin D3 oral tablet 1 tablet = 400 International_Units, By Mouth, Daily, # 30 tablet, 0 Refills, Maintenance, 07/01/18 14:49:26 EDT, Tablet Start Date: 07/01/18 Status: Ordered Problem List Condition Effective Dates Status Health Status Inform ant Neoplasm of gallbladder(Confirmed) Active Social History Social History Type Response Smoking Status Never smoker; Tobacc o user in household: No entered on: 03/05/14 Sex
--- OUTSIDE RECORDS SUMMARY | 2023-09-05 07:23 | XMS_ITS | Continuity of Care Document ---
Author Organization [facility] Rajesh dale Address [address] [place] [address] [address] [place] [address]- Care Team Providers Care Galvanizer Name Role Phone Not on Staff, PCP Primary Care Physician Unavail able [place] [facility] [place] 08/16/21 - 08/23/21 [facility] [address] [place] [address]- Attending Physician: Gregorio Thomas MD Allergies, Adverse [...] 08/31/21 14:28:00 EDT, 08/17/21 14:28:00 EDT, Tablet, [facility], Partial fill upon patient re... [...] oldest [Reference Range]: 1 Height 175 cm (08/16/21 9:38 AM) Social History Social History Type Response Smoking Status Never smoker; Tobacc o user in household: No entered on: 03/05/14 Sex
--- OUTSIDE RECORDS SUMMARY | 2023-09-05 07:23 | XMS_ITS | Continuity of Care Document ---
Author Organization [facility] Rajesh [facility] Address [address] [place] [address] [facility] [address] [place] [address]- Care Team Providers Care Geological Aide Name Role Phone Ale Kim DO Primary Care Physician En[place] [facility] [place] Date(s): 10/19/21 - 11/18/21 [facility] [address] [place], [place] [address] Attending Physician: Chandan Mao Admitting Physician: AdmChandan valera Referring Physician: Admtr ArMarlon Allergies, Adverse Reactions, Alerts Substance Reaction Severity [...]
--- OUTSIDE RECORDS SUMMARY | 2023-09-05 07:23 | XMS_ITS | Continuity of Care Document ---
Author Organization [facility] ter Address [address] [place] [address]- Care Team Providers Care Tools Developer Name Role Phone Laila Ramos MD Primary Care Physician [phone] [place] [facility] [place] - 05/07/[address] [address]- [facility] Discharge Disposition: A-D/C Home Attending Physician: Lj Campos MD Admitting Physician: Lj Campos MD Referring Physician: Lj Campos MD Allergies, Adverse Reactions, Alerts Substance Reaction [...] 14:45:09 EDT Start Date: 07/01/18 Status: Ordered Centrum Silver Men's 1 tablet, By Mouth, Daily, 0 Refills, Maintenance, 07/01/18 14:50:14 EDT Start Date: 07/01/18 Status: Ordered docusate sodium 100 mg oral capsule 100 mg, 1, capsule, By Mouth, 2 times a day, Refills 0, Maintenance, 05/12/17 9:33:37 Start Date: 05/12/17 Status: Ordered isosorbide mononitrate 60 mg oral [...] 01/11/17 8:59:00 Start Date: 01/11/17 Status: Ordered senna 187 mg oral tablet [...] Most recent to oldest [Reference Range]: 1 2 Height 176 cm (05/07/19 7:37 AM) 176 cm (05/07/19 7:33 AM) Weight 86.5 kg (05/07/19 7:37 AM) 86.5 kg (05/07/19 7:33 AM) Dry Weight 86.5 kg (05/07/19 7:37 AM) 86.5 kg (05/07/19 7:33 AM) Social History Social History Type Response Smoking Status Never smoker; Tobacc o user in household: No entered on: 03/05/14 Sex
--- OUTSIDE RECORDS SUMMARY | 2023-09-05 07:23 | XMS_ITS | Continuity of Care Document ---
Author Organization [facility] Address [address] [place] [address]- Care Team Providers Care Traffic Inspector Name Role Phone Laila Ramos MD Primary Care Physician Encounter [facility] Date(s): 05/31/20 - 06/30/20 [facility] [address] [place] [address] Attending Physician: Chandan Mao [...] 14:50:14 EDT Start Date: 07/01/18 Status: Ordered chlorthalidone 25 mg oral tablet 25 mg, 1, tablet, By Mouth, Daily, # 30 tablet, Refills 0, Maintenance, 01/20/20 8:37:00 EDT Start Date: 01/20/20 Status: Ordered Fiber capsules Fiber capsules, Refills 0, Maintenance, 07/08/19 14:50:00 EDT, Supply Start Date: 07/08/19 Status: Ordered gabapentin 300 mg oral capsule 300 mg, 1, capsule, By Mouth, 2 times a day, Refills 0, Maintenance, 01/16/20 16:46:00 EDT Start Date: 01/16/20 Status: Ordered isosorbide mononitrate 60 mg oral [...] 01/11/17 8:59:00 Start Date: 01/11/17 Status: Ordered Vitamin D3 oral tablet 1 tablet = 400 International_Units, By Mouth, Daily, # 30 tablet, 0 Refills, Maintenance, 07/01/18 14:49:26 EDT, Tablet Start Date: 07/01/18 Status: Ordered Voltaren 1% topical gel 1 application, Topically, 4 times a day, PRN for pain, # 100 Gm, 0 Refills, Maintenance, 09/09/19 8:46:00 EDT, Gel Start Date: 09/09/19 Status: Ordered Zofran 4 mg oral tablet 1 tablet = 4 mg, By Mouth, Every 8 hours, # 18 tablet, 0 Refills, Maintenance, 12/30/19 15:34:00 EDT, Tablet, [facility], 171, cm, 12/30/19 11:24:00 EDT, Height, 86.4, kg, 12/30/19 11:24:00 EDT, Dry Weight Start Date: 12/30/19 Status: Ordered Problem List Condition Effective Dates Status Health Status Inform ant Angina pectoris, unspecified(Confirmed) Active CAD (coronary artery disease)(Confirmed) Active Esophageal spasm(Confirmed) Active Hyperlipidemia(Confirmed) Active Hypertension(Confirmed) Active Neoplasm of gallbladder(Confirmed) Active Social History Social History Type Response Smoking Status Never smoker; Tobacc o user in household: No entered on: 03/05/14 Sex
--- OUTSIDE RECORDS SUMMARY | 2023-09-05 07:23 | XMS_ITS | Continuity of Care Document ---
Author Organization [facility] ter Address [address] [place] [address]- Care Team Providers Care Event Organizer Name Role Phone Laila Ramos MD Primary Care Physician [phone] [place] [facility] [place] 02/24/[address] [address]- [facility] Encounter Diagnosis CAD (coronary artery disease)(Final) - 02/19/20 Transaminitis(Final) - 02/19/20 Discharge Disposition: A-D/C Home Attending Physician: Joni Dumont MD Admitting Physician: Layo Ellis MD Referring Physician: Not on Staff, Referring MD Allergies, Adverse Reactions, Alerts Substance Reaction [...] 0 Refills, Maintenance, 12/30/19 15:34:00 EDT, Tablet, [facility], 171, cm, 12/30/19 11:24:00 EDT, Height, 86.4, kg, 12/30/19 11:24:00 EDT, Dry Weight Start Date: 12/30/19 Status: Ordered Problem List Condition Effective Dates Status Health Status Inform ant Angina pectoris, unspecified(Confirmed) Active CAD (coronary artery disease)(Confirmed) Active Esophageal spasm(Confirmed) Active Hyperlipidemia(Confirmed) Active Hypertension(Confirmed) Active Neoplasm of gallbladder(Confirmed) Active Procedures Procedure Date Related Diagnosis Body Site Status Cholecystectomy Completed Knee arthroplasty 1 Compl eted Knee replacement Complete d Multiple finger surgeries Completed 15 knee surgeries, replacements and arthroplasties Results Orders for Microbiology Reports Name Date Blood Culture #2 02/21/20 Microbiology Reports TEST:Blood Culture, Second Order STATUS:Unauthenticated BODY SITE: SOURCE:Blood COLLECTED DATE/TIME:02/21/20 3:53 AM Blood Culture, Second Order SPECIMEN DESCRIPTION : BLOOD LEFT SPECIAL REQUESTS : NONE CULTURE : NO GROWTH 3 DAYS REPORT STATUS : PRELIMINARY REPORT Radiology Reports * Exam Date Time Procedure Performing Provider Status 02/21/20 3:58 AM Chest Portable Audrey Paredes; Auth ( Verified) Notes: (Chest Portable) Reason For Exam: Fever RESULT: Chest Portable Chest Portable Reason: Fever; Clinical Question(s): Pneumonia COMPARISON: Multiple priors, most recent 02/19/2020. FINDINGS: LINES AND TUBES: None. LUNGS AND PLEURA: Low lung volumes with mild basilar atelectasis. Lungs are otherwise clear with no consolidation. No pleural effusion. No pneumothorax. HEART, MEDIASTINUM AND JANUSZ: Heart is normal in size. The mediastinal contours are stable with convex curvature of the lower left mediastinum consistent with a hiatal hernia. BONES AND SOFT TISSUES: No acute abnormality. IMPRESSION: Low lung volumes with atelectasis. Otherwise no acute abnormality. WSN: [id number] Ordering Physician: Christi Melton Dictated By: Rudy Lao MD Dictated Date/Time: 02/21/20 11:54 a Reviewed By: Rudy Lao MD Signed By: Rudy Lao MD Signed Date/Time: 02/21/20 11:54 am Transcribed By: ADAM Transcribed Date/Time: 02/21/20 11:52 am * Exam Date Time Procedure Performing Provider Status 02/19/20 4:10 PM Chest Portable Rena Stewart; Auth (Verified) Notes: (Chest Portable) Reason For Exam: Chest Pain;Other: RESULT: Chest Portable Chest Portable Hx of Present Illness: midepigastric pain; Reason: Other:; Chest Pain; Clinical Question(s): CHF COMPARISON: 07/01/2018 FINDINGS: LINES AND TUBES: None. LUNGS AND PLEURA: Low lung volumes with mild basilar atelectasis. Lungs are otherwise clear with no consolidation. Right hemidiaphragm is mildly elevated. No pleural effusion. No pneumothorax. HEART, MEDIASTINUM AND JANUSZ: Heart is normal in size. Normal mediastinal and hilar contour. BONES AND SOFT TISSUES: No acute abnormality. There is a hiatal hernia. IMPRESSION: 1. No acute abnormality. 2. Incidentally noted hiatal hernia. WSN: [id number] Ordering Physician: Remedios Srivastava Dictated By: Diane Camara MD Dictated Date/Time: 02/19/20 4:13 pm Reviewed By: Diane Camara MD Signed By: Diane Camara MD Signed Date/Time: 02/19/20 4:13 pm Transcribed By: ADAM Transcribed Date/Time: 02/19/20 4:11 pm Vital Signs Most recent to oldest [Reference Range]: 1 2 3 Height 172 cm (02/24/20 8:44 AM) 172 cm (02/24/20 2:02 AM) 172 cm (02/23/20 7:39 PM) Weight 89.2 kg (02/24/20 2:02 AM) 91.6 kg (02/21/20 3:01 PM) 91.6 kg (02/21/20 2:42 AM) Oxygen Saturation [94-100 %] 97 % (02/24/20 8:44 AM) 94 % (02/24/20 2:02 AM) 97 % (02/23/20 7:39 PM) Pulse Rate [55-90 bpm] 78 bpm (02/24/20 8:44 AM) 67 bpm (02/24/20 2:02 AM) 79 bpm (02/23/20 7:39 PM) Body Mass Index [18.5-24.99] 30.15 *>HHI* (02/24/20 2:02 AM) 29.91 *H* (02/20/20 12:45 AM) Blood Pressure [90-138/55-84 mm Hg] 122/66mm Hg (02/24/20 8:44 AM) 135/67mm Hg (02/24/20 2:02 AM) 122/88mm Hg (02/23/20 7:39 PM) Respiratory Rate [16-30 br/min] 20 br/min (02/24/20 8:44 AM) 18 br/min (02/24/20 2:02 AM) 20 br/min (02/23/20 9:45 PM) Temperature [96.8-100.4 DegF] 98.2 DegF (02/24/20 8:44 AM) 98.1 DegF (02/24/20 2:02 AM) 99.1 DegF (02/23/20 7:39 PM) Mode of Delivery (Oxygen) Room air (02/24/20 8:44 AM) Room air (02/24/20 2:02 AM) Room air (02/23/20 7:39 PM) Blood pressure sites Arm, right (02/24/20 8:44 AM) Arm, left (02/24/20 2:02 AM) Arm, left (02/23/20 7:39 PM) Temperature Route Oral (02/24/20 8:44 AM) Oral (02/24/20 2:02 AM) Oral (02/23/20 7:39 PM) Dry Weight 91.1 kg (02/20/20 12:45 AM) Weight Obtained Via Bed scale (02/24/20 2:02 AM) Bed scale (02/21/20 2:42 AM) Patient/family stated (02/20/20 12:45 AM) Dry Weight Obtained Via Bed scale (02/20/20 12:45 AM) Social History Social History Type Response Smoking Status Never smoker; Tobacc o user in household: No entered on: 03/05/14 Sex
[2023-09-05 07:44] LABS: MANUAL DIFF FLAG NO
[2023-09-05 07:46] LABS: Basophils Absolute Auto 0.1 X10*3/uL (0.0-0.2); Basophils Percent Auto 0.9 % (0-2); Eosinophils Absolute Auto 0.2 X10*3/uL (0.0-0.4); Eosinophils Percent Auto 3.1 % (0-4); Hematocrit 47.5 % (42.0-52.0); Hemoglobin 16.3 g/dl (14.0-18.0); Imm Gran Abs Auto 0.02 X10*3/uL (0.00-0.03); Imm Gran Pct Auto 0.3 % (0.0-0.4); Lymphocytes Absolute Auto 1.5 X10*3/uL (1.2-4.9); Lymphocytes Percent Auto 23.2 % (20-40); Mean Corpuscular HGB Conc 34.3 g/dl (31.0-36.0); Mean Corpuscular Hemoglobin 30.5 pg (27.0-33.0); Mean Platelet Volume 9.8 fL (9.4-12.4); Monocytes Absolute Auto 0.6 X10*3/uL (0.1-1.2); Neutrophils Absolute Auto 4.2 x10*3/uL (2.0-8.3); Neutrophils Percent Auto 63.5 % (45-73); Platelet Count 180 X10*3/uL (160-400); Red Blood Count 5.34 X10*6/uL (4.60-5.80); Red Cell Distribution Width 12.8 % (11.0-16.0); White Blood Count 6.5 X10*3/uL (4.8-10.8)
[2023-09-05] MEDS: HYDROmorphone HCl 1 MG/ML SYRINGE IM (07:47)
[2023-09-05 07:52] LABS: Appearance Urine Clear; Color Urine Yellow; Glucose Urine UA Negative (Negative); Leukocyte Esterase Urine Small (1+) (Negative); Nitrite Urine Negative (Negative); Specific Gravity - Urine <= 1.005 (1.005-1.025); UMIC TRIGGER UACC YES; Urine Blood Negative (Negative); Urine Ketones Negative (Negative); Urine Protein Negative (Neg-Trace)
[2023-09-05 07:59] LABS: Alanine Aminotransferase 19 U/L (0-40); Albumin Level 4.1 g/dL (3.5-5.0); Alkaline Phosphatase 69 U/L (39-117); Anion Gap 14 (12-20); Aspartate Amino Transferase 22 U/L (5-37); Bilirubin Direct 0.2 mg/dL (0.0-0.5); Bilirubin Total 0.7 mg/dL (0.0-1.0); Blood Urea Nitrogen 19 mg/dL (9-16); Carbon Dioxide 28 mmol/L (22-29); Chloride 106 mmol/L (96-108); Creatinine Clr Calc Pharmacy 58.4; Estimated Glomerular Filt Rate > 60; Glucose Random 111 mg/dL (60-115); Potassium 3.6 mmol/L (3.3-5.1); Sodium 144 mmol/L (135-145); Total Protein 6.7 g/dL (6.5-8.0)
[2023-09-05 08:11] LABS: Bacteria Urine None Seen (None Seen); Hyaline Casts Urine 0-2 /LPF (0-2); RBC Urine 0-2 /HPF (0-2); Squamous Epithelial Cell Urine 0-2 /HPF (0-2); UACC Culture Trigger YES; WBC Urine 0-5 /HPF (0-5)
[2023-09-05] MEDS: Ketorolac Tromethamine 30 MG/ML VIAL IM (08:19)
[2023-09-05 10:05] VITALS: BP 144/70; PULSE 64; RESP 14; TEMP 36.6; O2SAT 96
[2023-09-05] MEDS: oxyCODONE HCl Immed Release 5 MG TABLET PO (10:49)
[2023-09-05 12:08] VITALS: BP 129/70; PULSE 62; RESP 12; TEMP 36.3; O2SAT 94
[2023-09-05 13:31] VITALS: BP 138/76; PULSE 76; RESP 19; TEMP 36.6; O2SAT 98
== END 2023-09-05 13:34 | disposition home or self-care (01) ==
PROVIDERS: Emergency Provider Emergency Medicine; PCP Student in an Organized Health Care Education/Training Program
DX: M54.32 Sciatica, left side (principal); M79.605 Pain in left leg; Z79.899 Other long term (current) drug therapy
CPT/HCPCS: 36415; 72100; 80048; 80076; 81001; 85025; 87086; 93971; 96372; 99284; J1170; J1885

== ENCOUNTER 2024-02-13 14:22 | Outpatient (AMB) | payer MEDICARE, SELFPAY ==
--- NOTE | 2024-02-13 14:37 | HO.SPINEOV ---
Intake Visit Reasons: back and hip pain Intake Note: Mr. Colunga is here today to follow up on his low back pain. Allergies Penicillins Allergy (Verified 09/05/23 07:08) Unknown shellfish derived Allergy (Verified 09/05/23 07:08) Unknown Sulfa (Sulfonamide Antibiotics) Allergy (Verified 09/05/23 07:08) Unknown Assessment & Plan Assessment & Plan (1) SI (sacroiliac) joint dysfunction: Code(s): M53.3 - Sacrococcygeal disorders, not elsewhere classified Category: Medical Plan: Dear colleague, On 02/13/2024 I saw Abiodun Colunga. He is a 78-year-old male who previously underwent an L4-5 lumbar decompression for neurogenic claudication with good response. Unfortunately, he fell in August on his left side of his back and since then has been suffering from severe pain in the sacroiliac region going to his hip and groin. He denies numbness and weakness. He has a difficult time walking or standing. Changing positions also causes pain. He has to lift his leg up when he comes out of a car. He can not lay on his side and he sleeps in a recliner. He had an injection done in his left hip without success. Apparently in an MRI of the left hip was done and showed no significant abnormalities. On exam, he ambulates with a cane. SI joint provocative tests are positive. Hip rotation is not painful. Straight leg raise again produces pain on the left side at the SI joint area. No motor or neuro deficits. An x-ray of 02/12/2024 was compared to an x-ray of 2023 and shows a L4-5 disc collapse on the left side. Differential for this patient symptoms are SI joint pathology or L5 pathology due to the L4-5 disc collapse on the symptomatic side. I will refer him to for a left SI joint injection. In the meantime I will also order an MRI of the lumbar spine. The patient is going to see me again 2-3 weeks after the injection is done. I spent 35 minutes in his consult to review imaging and to discuss plan of care Angel Guevara MD, PhD Spine Fellowship Trained Neurosurgeon Director, [facility] (2) Lumbar back pain with radiculopathy affecting left lower extremity: Code(s): M54.16 - Radiculopathy, lumbar region Category: Medical Plan a Orders: Orders MR lumbar spine wo/w con Today Angel Guevara MD, PhD M54.16 - Radiculopathy, lumbar region, Z98.890 - Other specified postprocedural states Referrals Physiatry Referral Angel Guevara MD, PhD M53.3 - Sacrococcygeal disorders, not elsewhere classified Medications: New lorazepam (Ativan) Take 10-15 minutes before MRI 1 mg PO ONCE 1 tab 0RF MRI [facility] Avalos Coding Level of Care Code Est Pt Level 4 (49143) Diagnoses SI (sacroiliac) joint dysfunction M53.3 Lumbar back pain with radiculopathy affecting left lower extremity M54.16
== END 2024-02-13 15:46 | disposition home or self-care (01) ==
PROVIDERS: PCP Student in an Organized Health Care Education/Training Program; Visit Provider Neurological Surgery
DX: M53.3 Sacrococcygeal disorders, not elsewhere classified (principal); M54.16 Radiculopathy, lumbar region
CPT/HCPCS: 99214

== ENCOUNTER → 2024-02-13 14:22 | Outpatient (BNVA) | payer MEDICARE, SELFPAY | PROVIDERS: PCP Student in an Organized Health Care Education/Training Program; Visit Provider Neurological Surgery | DX: M53.3 Sacrococcygeal disorders, not elsewhere classified (principal); M54.16 Radiculopathy, lumbar region | CPT/HCPCS: 99212 ==

== ENCOUNTER 2024-02-20 13:08 | Outpatient (REF) | payer MEDICARE, SELFPAY ==
--- NOTE | ~2024-02-20 | MR_ITS ---
EXAMINATION: MR LUMBAR SPINE WITHOUT AND WITH CONTRAST CLINICAL INFORMATION: Radiculopathy. Status post surgery decompression L4-5. COMPARISON: No prior MRI. Correlated to x-ray dated September 05, 2023. TECHNIQUE: MRI of the lumbar spine was obtained using routine sequences with and without contrast. Intravenous contrast: Gadolinium Gadavist 8.5 mL without reported immediate complications. FINDINGS: Submitted for interpretation on March 05, 2024. Last rib-bearing vertebra labeled T12.. Multilevel marginal osteophyte formation and disc desiccation. Bone marrow STIR signal at the endplates of L4-5 as well as the pedicles and posterior elements, L4-5. Decreased intervertebral disc height at L4-5. Focal round intrinsic hyperintense T1 signal at the vertebral body of L2. Grade 1 anterolisthesis L4-5. Conus medullaris ends at superior endplate of L1 with normal signal. T12-L1: No herniated disc . No focal stenosis. No neuroforamina stenosis. L1-2: No herniated disc . No neuroforamina stenosis. No focal stenosis. L2-3: Broad-based disc bulging. Facet joint and ligamentum flavum hypertrophy. Reduced AP diameter of thecal sac and the neural foramina. L3-4: Broad-based disc bulging. Facet joint and ligamentum flavum hypertrophy. Reduced AP diameter of the thecal sac and the neural foramina likely encroaching the neural elements. L4-5: Status post laminectomy L4-5. Heterogeneous enhancement along the surgical site extending into the dorsal aspect of the central spinal canal/thecal sac. There is a left subarticular disc herniation with caudal migration beneath the posterior longitudinal ligament and in focal nonenhancing signal abnormality this lodged in the left ventral epidural compartment, L4-5. There is heterogeneous enhancement along the left lateral epidural/subdural compartment and extending from [id number] into the dorsal aspect of the central spinal canal reducing the AP diameter of the thecal sac encroaching the neural elements. There is a mixed signal hypointense and hyperintense T2 within the left facet joint medially extending into the left lateral central spinal canal reducing the AP diameter. L5-S1: Broad-based disc bulging. Facet joint hypertrophy. Reduced AP diameter of the thecal sac and bilateral neuroforamina narrowing encroaching the exiting nerve roots. Nonenhancing multifocal different sizes fluid signal characteristic lesions in both kidneys, the largest in the right kidney. MR/MR lumbar spine wo/w con IMPRESSION: Postsurgical changes at L4-5 with a combination of disloged /extruded disc left ventral epidural compartment and complex synovial cyst left facet joint resulting in compression upon neural elements of the thecal sac. Grade 1 anterolisthesis L4-5 on a degenerative basis. Spondylosis L5-S1 encroaching the exiting nerve roots. Bilateral renal cysts. Electronically signed by: Poli Hutson MD 03/05/2024 01:54 PM EST RP
[2024-02-20] MEDS: gadobutroL 10 ML VIAL IVPUSH (14:21)
== END 2024-02-20 13:09 | disposition home or self-care (01) ==
LOC: HO.MRI 13:08
PROVIDERS: Visit Provider Neurological Surgery
DX: M54.16 Radiculopathy, lumbar region (principal); Z98.890 Other specified postprocedural states
CPT/HCPCS: 72158; A9585

== ENCOUNTER → 2024-02-20 13:08 | Outpatient (BNV) | payer MEDICARE, SELFPAY | PROVIDERS: Visit Provider Radiology Diagnostic Radiology | DX: M54.16 Radiculopathy, lumbar region (principal) | CPT/HCPCS: 72158 ==

== ENCOUNTER 2024-03-07 14:19 | Outpatient (REF) | payer MEDICARE, SELFPAY | END 2024-03-07 14:20 | disposition home or self-care (01) | LOC: HO.HOSX 14:19 | PROVIDERS: Visit Provider Neurological Surgery | DX: M51.16 Intervertebral disc disorders with radiculopathy, lumbar region (principal); M71.38 Other bursal cyst, other site | CPT/HCPCS: 72110; 99212 ==

== ENCOUNTER 2024-03-07 14:19 | Outpatient (AMB) | payer MEDICARE, SELFPAY ==
--- NOTE | 2024-03-07 15:05 | A.SPINEOV_ITS ---
Intake Visit Reasons: Discuss Surgery Intake Note: Mr. Colunga is here today to Discuss Surgery. Studio Associate Required: No Allergies Penicillins Allergy (Verified 03/07/24 15:06) Unknown shellfish derived Allergy (Verified 03/07/24 15:06) Unknown Sulfa (Sulfonamide Antibiotics) Allergy (Verified 03/07/24 15:06) Unknown Assessment & Plan Assessment & Plan (1) Lumbar back pain with radiculopathy affecting left lower extremity: Code(s): M54.16 - Radiculopathy, lumbar region Category: Medical Plan: Dear colleague, On 03/07/2024 I saw for follow-up Abiodun Colunag. A you know he suffering from excruciating pain on the left side of his back radiating to his hip into his groin after a fall. He takes multiple medications, including gabapentin Tylenol, anti-inflammatories and oxycodone but despite all of these medications he still severe pain 24 hours a day. He also mentions that he has weakness in his left leg. On exam, he has an antalgic gait. He stands deviated towards the right side to relieve the pressure on the nerve. Straight leg raise is positive. There is weakness of the iliopsoas grade 3/5 on the left side. He ambulates with a cane. Sensory exam is intact. We reviewed the MRI done on 02/20/2024 that shows a large extruded disc herniation L4-5 with caudal migration behind the L5 vertebral body and compressing the L5 nerve root. In addition there is a large synovial cyst adding to the compression. Dynamic lumbar x-rays today show no signs of instability. In summary, this patient is suffering from in excruciating eating left lumbar radiculopathy with neurological deficits due to a combination of a large extruded disc herniation and the development of a synovial cyst compressing the L5 nerve root. In the absence of instability on the x-ray, I offered him a synovial cyst resection and removal of the disc herniation to decompress the L5 nerve root. He is in excruciating pain and has neurological deficits and therefore I do not want to wait long and I scheduled him for coming Sunday03/12/2024. I spent 40 minutes in his consult to review imaging and discussing plan of care. Angel Guevara MD, PhD Spine Fellowship Trained Neurosurgeon Director, [facility] (2) Synovial cyst of lumbar facet joint: Code(s): M71.38 - Other bursal cyst, other site Category: Medical Plan: SD (3) Lumbar disc herniation with radiculopathy: Code(s): M51.16 - Intervertebral disc disorders with radiculopathy, lumbar region Category: Medical Plan S Orders: Orders XR lumbar spine 4V min Today M54.16 - Radiculopathy, lumbar region Coding Level of Care Code Est Pt Level 5 (53040) Diagnoses Lumbar back pain with radiculopathy affecting left lower extremity M54.16 Synovial cyst of lumbar facet joint M71.38 Lumbar disc herniation with radiculopathy M51.16
== END 2024-03-07 16:00 | disposition home or self-care (01) ==
PROVIDERS: Visit Provider Neurological Surgery
DX: M51.16 Intervertebral disc disorders with radiculopathy, lumbar region (principal); M71.38 Other bursal cyst, other site
CPT/HCPCS: 99215

== ENCOUNTER 2024-03-12 06:05 | Day surgery (SDC) | payer MEDICARE, SELFPAY ==
--- NOTE | 2024-03-11 09:44 | P.CONAN_ITS ---
Documented by User: Bharti Nguyen NP 03/11/24 09:47 HPI - Anesthesia Eval Consult details Narrative: 78yo M for L5 MicroLumbar discectomy,left L4-5 synoval Cyst removal, s/p L4-5 Lumbar Decompression 05/2023 with GA-ETT 7.5 Follows [facility]. Last office visit 12/2022. Echo and Stress 01/2023 OK. CAD s/p cath x 2. Stents x 2 2014 Gerd. Well controlled with ppi PMFSH Active Problems Active Problems: All Active Problems Lumbar disc herniation with radiculopathy (Acute) Synovial cyst of lumbar facet joint (Acute) Lumbar back pain with radiculopathy affecting left lower extremity (Acute) SI (sacroiliac) joint dysfunction (Acute) S/P spinal surgery (Acute) Lumbar stenosis with neurogenic claudication (Acute) Past Medical History Medical History GERD (gastroesophageal reflux disease) Back pain Renal cyst Osteoarthritis Diverticulosis BPH (benign prostatic hyperplasia) Numbness CAD (coronary artery disease) HTN (hypertension) Arthritis Family History Family history of problems with anesthesia: No Surgical History Surgical History Hx of shoulder surgery Hx of cataract extraction Hx of cardiac catheterization H/O colonoscopy Hx of hand surgery History of bilateral knee replacement Hx of hernia repair History of coronary artery stent placement Hx of cholecystectomy Hx of carpal tunnel repair History of Problems with Anesthesia: No Social History Social History Are you a primary healthcare advisory services manager to a significant other at home: No Do you presently have visiting nurse or other home services: No Patient Tobacco Use Status: Never used Tobacco Use of substances other than those prescribed or required for medical reasons: No Are you DNR?: No Advance Directives: No Advance Directives Information Provided: Yes Meds Allergies Allergy/AdvReac Type Severity Reaction Status Date / Time Penicillins Allergy Unknown Verified 03/12/24 06:17 shellfish derived Allergy Unknown Verified 03/12/24 06:17 Sulfa (Sulfonamide Allergy Unknown Verified 03/12/24 06:17 Antibiotics) Home Medications ?Medication ?Instructions ?Recorded ?Confirmed ?Last Taken ?Type acetaminophen 650 mg 650 mg PO DAILY PRN Pain 05/17/23 03/12/24 Unknown History tablet,extended release amlodipine 10 mg tablet 10 mg PO BEDTIME 05/17/23 03/12/24 Unknown History aspirin 81 mg tablet,delayed 81 mg PO BEDTIME 05/17/23 03/12/24 05/29/23 History release celecoxib 200 mg capsule 200 mg PO DAILY 05/17/23 03/12/24 Unknown History cholecalciferol (vitamin D3) 50 50 mcg PO DAILY 05/17/23 03/12/24 05/30/23 History mcg (2,000 unit) capsule (Vitamin D3) diclofenac sodium 1 % topical gel 2 g topical QID PRN Pain 05/17/23 03/12/24 Unknown History fluticasone propionate 50 2 spray intranasal DAILY PRN 05/17/23 03/12/24 Unknown History mcg/actuation nasal Allergic Symptoms spray,suspension gabapentin 300 mg capsule 300 mg PO BEDTIME PRN low back pain 05/17/23 03/12/24 05/30/23 History hydrochlorothiazide 12.5 mg capsule 12.5 mg PO QAM 05/17/23 03/12/24 05/30/23 History isosorbide mononitrate 30 mg 90 mg PO DAILY 05/17/23 03/12/24 05/31/23 History tablet,extended release 24 hr menthol 0.44 %-zinc oxide 20 % ea topical 05/17/23 Unknown History topical ointment metoprolol succinate 50 mg 50 mg PO DAILY 05/17/23 03/12/24 05/31/23 History tablet,extended release 24 hr multivitamin 1 tab PO DAILY 05/17/23 03/12/24 05/30/23 History nitroglycerin 0.4 mg sublingual 0.4 mg sublingual DIRECTED 05/17/23 03/12/24 Unknown History tablet omeprazole 40 mg capsule,delayed 40 mg PO DAILY 05/17/23 03/12/24 05/31/23 History release rosuvastatin 20 mg tablet 20 mg PO BEDTIME 05/17/23 03/12/24 05/30/23 History Exam Height,Weight and Vital Signs: Height 5 ft 9 in Weight 86.183 kg Last Vital Signs Pulse 68 05/17/23 12:33 Resp 18 05/17/23 12:33 BP 118/64 05/17/23 12:33 Pulse Ox 96 05/17/23 12:33 O2 Del Method Room Air 05/17/23 12:33 Pertinent Lab Results Pertinent Lab Results: Laboratory Tests 09/05/23 07:41 WBC 6.5 Hgb 16.3 Hct 47.5 Plt Count 180 Sodium 144 Potassium 3.6 Chloride 106 Carbon Dioxide 28 BUN 19 H Creatinine 1.18 Narrative Narrative: EKG 04/2023 Vent. Rate : 065 BPM Atrial Rate : 065 BPM P-R Int : 154 ms QRS Dur : 132 ms QT Int : 420 ms P-R-T Axes : 047 010 -02 degrees QTc Int : 436 ms Normal sinus rhythm Right bundle branch block Abnormal ECG No previous ECGs available ECHO 02/2023 With contrast Nml LV chamber size. Mild conc LVH. Nml RWM. Nml LV systolic function. LVEF 55- 60%. Indeterminate LV diastolic function. Nml RV size and function. PASP could not be obstained. LA nml in size No hemodynamically significant valve disease Nuc stress 01/2023 Likely negative exercise stress with nuc imaging Nuc imaging revealed likely nml perfusion after attenuation correction was applied. A small, mild focus of apical inferior ischemia could not be excluded, however. Nml TID ratio RV function is nml Nml LV systolic fuction and RWM Assessment and Plan Assessment Anesthesia Assessment: Chart Reviewed Final Anesthetic Review Family History of Problems with Anesthesia: No History of Problems with Anesthesia: No Documented by User: Lara Lopez MD 03/12/24 07:21 [facility] Past Medical History Medical History GERD (gastroesophageal reflux disease) Back pain Renal cyst Osteoarthritis Diverticulosis BPH (benign prostatic hyperplasia) Numbness CAD (coronary artery disease) HTN (hypertension) Arthritis Surgical History Surgical History Hx of shoulder surgery Hx of cataract extraction Hx of cardiac catheterization H/O colonoscopy Hx of hand surgery History of bilateral knee replacement Hx of hernia repair History of coronary artery stent placement Hx of cholecystectomy Hx of carpal tunnel repair Social History Social History Are you a primary healthcare advisory services manager to a significant other at home: No Do you presently have visiting nurse or other home services: No Patient Tobacco Use Status: Never used Tobacco Use of substances other than those prescribed or required for medical reasons: No Are you DNR?: No Advance Directives: No Advance Directives Information Provided: Yes Meds Allergies Allergy/AdvReac Type Severity Reaction Status Date / Time Penicillins Allergy Unknown Verified 03/12/24 06:17 shellfish derived Allergy Unknown Verified 03/12/24 06:17 Sulfa (Sulfonamide Allergy Unknown Verified 03/12/24 06:17 Antibiotics) Home Medications ?Medication ?Instructions ?Recorded ?Confirmed ?Last Taken ?Type acetaminophen 650 mg 650 mg PO DAILY PRN Pain 05/17/23 03/12/24 Unknown History tablet,extended release amlodipine 10 mg tablet 10 mg PO BEDTIME 05/17/23 03/12/24 Unknown History aspirin 81 mg tablet,delayed 81 mg PO BEDTIME 05/17/23 03/12/24 05/29/23 History release celecoxib 200 mg capsule 200 mg PO DAILY 05/17/23 03/12/24 Unknown History cholecalciferol (vitamin D3) 50 50 mcg PO DAILY 05/17/23 03/12/24 05/30/23 History mcg (2,000 unit) capsule (Vitamin D3) diclofenac sodium 1 % topical gel 2 g topical QID PRN Pain 05/17/23 03/12/24 Unknown History fluticasone propionate 50 2 spray intranasal DAILY PRN 05/17/23 03/12/24 Unknown History mcg/actuation nasal Allergic Symptoms spray,suspension gabapentin 300 mg capsule 300 mg PO BEDTIME PRN low back pain 05/17/23 03/12/24 05/30/23 History hydrochlorothiazide 12.5 mg capsule 12.5 mg PO QAM 05/17/23 03/12/24 05/30/23 H istory isosorbide mononitrate 30 mg 90 mg PO DAILY 05/17/23 03/12/24 05/31/23 History tablet,extended release 24 hr menthol 0.44 %-zinc oxide 20 % ea topical 05/17/23 Unknown History topical ointment metoprolol succinate 50 mg 50 mg PO DAILY 05/17/23 03/12/24 05/31/23 History tablet,extended release 24 hr multivitamin 1 tab PO DAILY 05/17/23 03/12/24 05/30/23 History nitroglycerin 0.4 mg sublingual 0.4 mg sublingual DIRECTED 05/17/23 03/12/24 Unknown History tablet omeprazole 40 mg capsule,delayed 40 mg PO DAILY 05/17/23 03/12/24 05/31/23 History release rosuvastatin 20 mg tablet 20 mg PO BEDTIME 05/17/23 03/12/24 05/30/23 History Exam Airway Mallampati Class: III TM Dist: >3cm Neck ROM: Full Assessment and Plan Assessment Anesthesia Assessment: Anesthesia Plan Discussed Final Anesthetic Review NPO: Yes ASA Class: III Final Preanesthetic Review: No Changes in Pt Med Stat, Meds/Allgs Chart Reviewed, Consent Obtained/Reviewed, Anes Risks/Benef Reviewed and DNR Form (If Appl.) Patient Risk: Intermediate Procedure Risk: Intermediate Anesthetic Plan Anesthetic Plan: GA Disposition: Standard PACU
[2024-03-11 11:16] VITALS: BMI 26.6
[2024-03-12] VITALS (9 sets, daily range): BP systolic 118–139; BP diastolic 61–70; PULSE 72–88; RESP 16; TEMP 36.6; O2SAT 94–96; BMI 26.9
[2024-03-12] MEDS: methocarbamoL 750 MG TABLET PO (06:39)
[2024-03-12] MEDS: Gabapentin 300 MG CAPSULE PO (06:39)
[2024-03-12] MEDS: Lactated Ringers 1,000 ML 100 ML IVCONT (06:51)
[2024-03-12] MEDS: vancomycin HCL 1,500 MG in 0.9 % Sodium Chloride 500 ML 333.33 MG IV (07:05)
--- NOTE | 2024-03-12 07:18 | MHC.SHP ---
Pre-Procedural Eval Section A - 24 Hr Update-Section A only Date of Service: 03/12/24 Section B - Complete if H&P > 30 days Chief Complaint: Radiculopathy, lumbar region Allergies: Allergies Allergy/AdvReac Type Severity Reaction Status Date / Time Penicillins Allergy Unknown Verified 03/12/24 06:17 shellfish derived Allergy Unknown Verified 03/12/24 06:17 Sulfa (Sulfonamide Allergy Unknown Verified 03/12/24 06:17 Antibiotics) Review of Systems Sugical H&P ROS: Negative: Constitution, Cardiovascular, Respiratory, Neurological, Psychiatric, Hem-Onc, Allergic/Immunologic, Gastrointestinal, Genitourinary, Musculoskeletal, Integumentary, Endocrine and Eyes/Ears/Nose/Throat Exam Surgical H&P Exam: Not Evaluated: HEENT, Not Evaluated: Heart, Not Evaluated: Lungs, Not Evaluated: Extremities, Not Evaluated: Abdomen, Not Evaluated: Skin and Not Evaluated: Neurological Exam Comment: Patient is awake, alert, in no acute distress. Proposed surgical incision site is clean, dry intact. Plan I have reviewed the history and physical and performed a pertinent physical examination on my patient. No changes have occurred unless specified. Plan remains the same, left L4-5 synovial cyst resection and removal of herniated disc Time Spent With Patient Time: Total time managing care of this patient today ___15_ minutes.
--- NOTE | 2024-03-12 07:28 | PM.DS ---
DS: Providers Provider Date of Service: 03/12/24 Primary care physician: BEVERLY Waddell DS: Summary Time Attestation Discharge Coordination Time (in mins): 15 Quality: Safe Use of Opioids Does Pt have an Active Cancer Diagnosis on the Problem List?: No Quality: Stroke Does the patient have a stroke diagnosis?: No Physical Exam Vital Signs: Vital Signs: Last Vital Signs Temp 97.8 F 03/12/24 06:33 Pulse 72 03/12/24 06:33 Resp 16 03/12/24 06:33 BP 134/70 03/12/24 06:33 Pulse Ox 96 03/12/24 06:33 O2 Del Method Room Air 03/12/24 06:33 BMI result Body Mass Index 26.9 Discharge Plan Discharge Patient Disposition: Home, Self-Care Referrals: Vineet Brush PA [Primary Care Provider] - 1 Week Discharge Medications: New oxycodone 5 mg tablet 5 mg PO Q6H PRN (Reason: pain (scale score 7-10)) Qty: 30 0RF Rx Instructions: Partial Fill upon patient request. Continued multivitamin Tablet 1 tab PO DAILY metoprolol succinate 50 mg tablet extended release 24 hr 50 mg PO DAILY isosorbide mononitrate 30 mg tablet extended release 24 hr 90 mg PO DAILY omeprazole 40 mg capsule,delayed release(DR/EC) 40 mg PO DAILY amlodipine 10 mg tablet 10 mg PO BEDTIME hydrochlorothiazide 12.5 mg capsule 12.5 mg PO QAM nitroglycerin 0.4 mg tablet, sublingual 0.4 mg sublingual DIRECTED gabapentin 300 mg capsule 300 mg PO BEDTIME PRN (Reason: low back pain) fluticasone propionate 50 mcg/actuation [place],Suspension 2 spray INTRANASAL DAILY PRN (Reason: Allergic Symptoms) Rx Instructions: administer into each nostril rosuvastatin 20 mg tablet 20 mg PO BEDTIME diclofenac sodium 1 % Gel 2 g TOPICAL QID PRN (Reason: Pain) Rx Instructions: apply to single elbow, wrist or hand; for hand includes palm/fingers/back of hand cholecalciferol (vitamin D3) [Vitamin D3] 50 mcg (2,000 unit) Capsule 50 mcg PO DAILY menthol-zinc oxide 0.44-20 % Ointment TOPICAL acetaminophen 650 mg Tablet Extended Release 650 mg PO DAILY PRN (Reason: Pain) docusate sodium [Colace] 100 mg capsule 100 mg PO BID Qty: 20 0RF lorazepam [Ativan] 1 mg tablet 1 mg PO ONCE Qty: 1 0RF Rx Instructions: Take 10-15 minutes before MRI Held celecoxib 200 mg capsule 200 mg PO DAILY Hold Instructions: Resume on 03/13/24. Hold until tomorrow aspirin 81 mg Tablet,Delayed Release (Dr/Ec) 81 mg PO BEDTIME Hold Instructions: Resume on 03/17/24. hold for 5 days oxycodone 5 mg tablet 5 mg PO Q4H PRN (Reason: pain) Qty: 30 0RF Hold Instructions: Resume on 03/12/24. Use post-op Rx Rx Instructions: Partial Fill upon patient request. oxycodone 5 mg tablet 5 mg PO Q6H PRN (Reason: pain) Qty: 20 0RF Hold Instructions: Resume on 03/12/24. Use post-op Rx Rx Instructions: Partial Fill upon patient request. oxycodone 5 mg capsule 5 mg PO Q6H PRN (Reason: pain) Qty: 20 0RF Hold Instructions: Resume on 03/12/24. Use post-op Rx Rx Instructions: Partial Fill upon patient request. Discharge Orders: Discharge Order (Routine); Ordered 03/12/24 Ordered By: Perez Lowe Diet: Advance to usual diet Activity on Discharge: As tolerated Activity Restrictions/Additional Instructions: After your spinal surgery we ask you to observe the following restrictions/guidelines: Activity: It is normal to feel some discomfort as you increase your activity, but that will improve with time. We ask you avoid heavy lifting or acitivities that cause pain. As a general rule, 8lbs is a safe limit for lifting right after surgery. Walk as much as you feel comfortable but not to exhaustion. You will feel extra tired the first few days after surgery. Stay well hydrated. It is OK to walk up and down stairs You may return to driving when you are off narcotics (such as vicodin, oxycodone, dilaudid, etc), and you are back to normal functional capacity. If you have any concerns please check with office before driving. Return to work is specific to each patient and each surgery, so please speak with your doctor/PA at first follow up. Please bring paperwork such as FMLA at that time if you need it filled out. Medications: Please hold your aspirin for 5 days after surgery You may resume your celecoxib tomorrow We recommend you take 1,000mg Tylenol every 8 hours for the first few weeks after surgery, if you do not have any liver issues and can tolerate this medication. Do not exceed 4,000mg daily. We will give you a short supply of narcotics after surgery (usually one weeks worth). If you need more please call the office but do not use more than prescribed. You will need to give our office 48 hours notice if you need narcotics refilled and we do not fill narcotics on weekends or evenings. If you are on a narcotic, it is a good idea to take a stool softener such as colace or senna to avoid constipation If you take blood thinner such as aspirin, Plavix, Coumadin, Effient, Eliquis etc for conditions such as Afib, DVT, Pulmonary embolus, coronary disease, stents etc please speak with your surgeon about specific details as to when you can resume these medications. You can resume NSAIDs on post op day 1 (eg: Motrin, Naproxen, etc). Follow up: Please call the office, , after surgery to arrange a 3 week follow up for wound check. Wound Care: You may remove your dressing on the first day after surgery. ?You may ?leave open to air. Please do not remove the steri strips underneath. they will fall off on their own in one week. IT IS NORMAL FOR THE WOUND TO OOZE OR BE BLOODY FOR A FEW DAYS AFTER SURGERY. ?IF THIS HAPPENS JUST PLACE NEW DRESSING OVER IT TO AVOID STAINING CLOTHES. You may shower on post op day # 1 We ask that you do not let the water soak the wound. If it does get wet, just towel dry lightly. Please do not scrub your incision or place any type of chemical/ointment on the wound. No tub baths, pools or jacuzzis for one month. If you have any leaking or redness from your wound, or fevers, please call the office. Print Language: Mohawk
--- NOTE | 2024-03-12 09:24 | P.OP_ITS ---
Operative Note Operative Note Date of Service: 03/12/24 Narrative: Preoperative Diagnosis: 1) Extradural benign mass (synovial cyst) compressing the left L5 nerve root 2) large extruded disc herniation compressing the left L5 nerve root Postoperative diagnosis: Same Operation: Redo left L4-5 Laminotomy for removal of extradural benign mass and removal of disc herniation with use of microscope Consent Informed Consent was obtained for this operation. I have explained the nature, purpose and benefits of the operation. I have discussed the risks and benefit of the operation including possible complications or adverse events with patient/family. Alternative(s) were discussed with the patient with their relative benefits and risks as well as the consequences of not accepting the operation were included in obtaining consent. Surgeon: ANGÉLICA MONTE MD, PHD Procedure Assisted By: Perez montoya Description of Procedure This patient is suffering from severe left-sided back pain radiating to his thigh and groin after a fall on his back.. He is status post L4-5 lumbar decompression in May of 2023. An MRI shows a large extradural cystic mass compressing the left L5 nerve root as well as a large extruded disc herniation that is caudally migrated and compresses the L5 nerve root. The patient was offered a removal of the mass to decompress the nervous structure. The procedure complications were explained. The patient was consented. The patient was brought to the operating room and endotracheally intubated. The patient was turned in prone position on the Chema frame. Prep and drape was done followed by timeout. Physician orthotics prosthetics assistant provided access. The previous mid lumbar incision was opened, , the paravertebral muscles were released in the left side to expose the L4-5 interspace. The previous laminotomy defect was extended cranially until no rmal flavum ligament was found. Flavum ligament was opened to expose the underlying dura. Then I carried my dissection caudally towards the L4-5 disc space. Intraoperative x-rays obtained to confirm the correct level. I removed scar tissue and then on the medial side of the L4-5 facet joint a large cystic structure was found there was adherent to the L5 nerve root. I carefully dissected the cystic structure from the L5 nerve root and then remove the cyst in toto and sent it for pathology. The nerve root was still not relaxed as there was an ongoing compression from disc herniation. I went under the nerve root and I was able to retrieve several fragments of disc herniation to further decompress the L5 nerve root. A long the nerve root could be easily passed, a sign of adequate decompression of the nerve root . The microscope was removed. Hemostasis was done. Incision was closed in 2 layers. Steri-Strips were used to approximate incision. An OpSite with Tegaderm was used to cover the incision. All sponge needle counts were correct. Patient was extubated and transported in stable is to recovery room. Anesthesia: General Estimated Blood Loss (ml): Minimal Duration of Surgery: Under 80 Minutes Postoperative Plan: Discharge to home
== END 2024-03-12 12:00 | disposition home or self-care (01) ==
PROVIDERS: PCP Physician Assistant; Visit Provider Neurological Surgery
PROC: (CPT 63267; principal; 2024-03-12 07:30)
DX: M71.38 Other bursal cyst, other site (principal); M51.26 Other intervertebral disc displacement, lumbar region; M51.16 Intervertebral disc disorders with radiculopathy, lumbar region; R26.89 Other abnormalities of gait and mobility; Z91.81 History of falling; Z79.1 Long term (current) use of non-steroidal anti-inflammatories (NSAID); Z79.899 Other long term (current) drug therapy; Z99.89 Dependence on other enabling machines and devices; Z88.0 Allergy status to penicillin; Z88.2 Allergy status to sulfonamides
CPT/HCPCS: 63267; 63030; 88304; 88305; J0131; J1100; J2003; J2405; J2704; J3010; J3371

== ENCOUNTER → 2024-03-12 06:05 | Outpatient (BNV) | payer MEDICARE, SELFPAY | PROVIDERS: PCP Physician Assistant; Visit Provider Neurological Surgery | DX: M71.38 Other bursal cyst, other site (principal); M51.26 Other intervertebral disc displacement, lumbar region | CPT/HCPCS: 63030; 63267; 99499 ==

== ENCOUNTER 2024-04-01 14:30 | Outpatient (AMB) | payer MEDICARE, SELFPAY ==
--- NOTE | 2024-04-01 14:33 | A.SPINEOV_ITS ---
Intake Visit Reasons: 1st post op Intake Note: Mr. Colunga is here today for his 1st post op appointment. Photographer Finish Required: No Allergies Penicillins Allergy (Verified 03/12/24 06:17) Unknown shellfish derived Allergy (Verified 03/12/24 06:17) Unknown Sulfa (Sulfonamide Antibiotics) Allergy (Verified 03/12/24 06:17) Unknown Assessment & Plan Assessment & Plan (1) S/P spinal surgery: Code(s): Z98.890 - Other specified postprocedural states Category: Medical Plan Abiodun comes in today for his 1st postoperative visit after having a redo of left L4-5 Laminotomy for removal of extradural benign mass and removal of disc herniation. He reports that overall he does feel better than he did prior to surgery, however he still has quite a bit of radicular pain down his left lower extremity. He states the pain starts in his low back shoots over his left hip and goes into his left posterior / lateral thigh. When describing his pain he points directly to the left SI joint. He does disclosed a previous history of SI joint dysfunction, which Dr. Garcia attempted to treat with SI joint injections on the left. Unfortunately these were denied by his insurance company because lumbar spine concerns/issues were not ruled out. No new neurological deficits. The patient is able to ambulate well with a cane. His posterior incision site appears closed and well healing with some edema around the area. No erythema. (+) left-sided Luciana finger test, (+) left- sided Florencia's, (+) left-sided gaenselns, (+) left-sided SI joint compression test. I would like to send in a course of prednisone for Abiodun to see if I can help with his postoperative inflammation. I would like to see him again in 6 weeks. If he continues to complain of similar symptoms, it may be worth sending him for a left-sided SI joint injection to rule out SI joint pathology. Perez Guevara MD,PhD [facility] Medications: New methylprednisolone PO PER PKG DIR for 6 days 21 ea 0RF Coding Level of Care Code Global (79841) Diagnoses S/P spinal surgery Z98.890
--- OUTSIDE RECORDS SUMMARY | 2024-04-02 22:07 | XMS_ITS | Continuity of Care Document ---
Author Organization [facility] [address] Address [address] [place] [address]- Care Team Providers Care Yarn Weigher Name Role Phone Vineet Lott Primary Care Physician [phone] Encounter [facility] Date(s): 02/13/24 - 03/14/24 [facility] [address], [place] [id number] Encounter Type: Triage Allergies, Adverse Reactions, Alerts Substance Criticality Severity Reaction Reaction Severity Status penicillins facial swelling Ac tive sulfa drugs facial swelling Ac tive shellfish difficulty breathing Active Medications acetaminophen 325 mg oral tablet 650 mg, By Mouth, Every 6 hours, Refills 0, Maintenance, 05/12/17 9:33:00 AM EST Start Date: 05/12/17 Status: Ordered Repeat number: 1 amLODIPine 10 mg oral tablet 10 mg, By Mouth, Daily, Refills 0, Maintenance, 05/12/17 9:33:05 AM EST Start Date: 05/12/17 Status: Ordered Repeat number: 1 aspirin 81 mg oral delayed release tablet 81 mg, 1, tablet, By Mouth, Daily, # 30 tablet, Refills 0, Maintenance, 07/01/18 2:45:09 PM EDT Start Date: 07/01/18 Status: Ordered Quantity: 30.0 Unit: tablet Repeat number: 1 CeleBREX 200 mg oral capsule 1 capsule = 200 mg, By Mouth, Daily, 0 Refills, Maintenance, 03/04/21 2:31:00 PM EST, Partial fill upon patient request if the prescription is for a schedule II opioid drug. Start Date: 03/04/21 Status: Ordered Repeat number: 1 Centrum Silver Men's 1 tablet, By Mouth, Daily, 0 Refills, Maintenance, 07/01/18 2:50:14 PM EDT Start Date: 07/01/18 Status: Ordered Repeat number: 1 gabapentin 300 mg oral capsule 300 mg, 1, capsule, By Mouth, 2 times a day, Refills 0, Maintenance, 01/16/20 4:46:00 PM EDT Start Date: 01/16/20 Status: Ordered Repeat number: 1 hydroCHLOROthiazide 12.5 mg oral capsule 1 capsule = 12.5 mg, By Mouth, Daily, 0 Refills, Maintenance, 03/04/21 2:31:00 PM EST, Partial fillupon patient request if the prescription is for a schedule II opioid drug. Start Date: 03/04/21 Status: Ordered Repeat number: 1 Imdur ER = 90 mg, By Mouth, Daily, 0 Refills, Maintenance, 02/12/24 9:16:00 AM EDT, Partial fill upon patient request if the prescription is for a schedule II opioid drug. Start Date: 02/12/24 Status: Ordered Repeat number: 1 Metoprolol Succinate ER 50 mg oral tablet, extended release 50 mg, 1, tablet, By Mouth, Daily, # 90 tablet, Refills 0, Maintenance, 02/12/24 9:15:00 AM EDT, Partial fill upon patient request if the prescription is for a schedule II opioid drug. Start Date: 02/12/24 Status: Ordered Quantity: 90.0 Unit: tablet Repeat number: 1 Nitroglycerin 0 Refills, Maintenance, 09/04/19 4:12:00 PM EDT Start Date: 09/04/19 Status: Ordered Repeat number: 1 omeprazole 40 mg oral enteric coated capsule 1 capsule = 40 mg, By Mouth, 2 times a day, 0 Refills, Maintenance, 01/11/17 8:59:00 AM EDT Start Date: 01/11/17 Status: Ordered Repeat number: 1 Rosuvastatin = 20 mg, By Mouth, Daily, 0 Refills, Maintenance, 03/04/21 2:32:00 PM EST, Partial fill upon patient request if the prescription is for a schedule II opioid drug. Start Date: 03/04/21 Status: Ordered Repeat number: 1 Vitamin D3 oral tablet 1 tablet = 400 International_Units, By Mouth, Daily, # 30 tablet, 0 Refills, Maintenance, 07/01/18 2:49:26 PM EDT, Tablet Start Date: 07/01/18 Status: Ordered Quantity: 30.0 Unit: tablet Repeat number: 1 Voltaren 1% topical gel 1 application, Topically, 4 times a day, PRN for pain, # 100 Gm, 0 Refills, Maintenance, 09/09/19 8:46:00 AM EDT, Gel Start Date: 09/09/19 Status: Ordered Quantity: 100.0 Unit: g Repeat number: 1 Problem List Condition Confirmation Course Effective Dates Status Health Status Informant Angina pectoris, unspecified Confirmed Active BPH (benign prostatic hyperplasia) Confirmed Active CAD (coronary artery disease) Confirmed Active Diverticulosis Confirmed Active Erectile dysfunction Confirmed Active Esophageal spasm Confirmed Active Hypercontractile esophagus Confirmed Active Hypercholesteremia Confirmed Active Hyperlipidemia Confirmed Active Hypertension Confirmed Active Ventricular premature beats Confirmed Active Neoplasm of gallbladder Confirmed Active IVAN (obstructive sleep apnea) Confirmed Active Osteoarthritis Confirmed Active Premature atrial contraction Confirmed Active Thoracic segment dysfunction Confirmed Active Supraventricular tachycardia Confirmed Active Social History Social History Type Response Smoking Status Never smoker; Tobacc o user in household: No entered on: 03/05/14 Sex Sex Representation Male (finding) Patient Care team information Care Team Personnel Name: Fozia Alvarado RN Position: [facility] SN RN Member Role: Primary Care Nurse Name: Jeferson Chapman RN Position: [facility] RN Member Role: Primary Care Nurse Name: Vineet Lott Position: [facility] PCO Associate Professional Member Role: PCP Address: [address] [place] [address] Telecom: Name: Courtney Mahmood RN Position: [facility] SN RN Member Role: Primary Care Nurse Name: Iqra Urbina RN Position: S RN Member Role: Primary Care Nurse Name: Dada Hernandez RN Position: [facility] RN Member Role: Primary Care Nurse Name: Rachel Grant RN Position: S RN Member Role: Primary Care Nurse Name: Maida Weinstein RN Position: S RN Member Role: Primary Care Nurse Care Team Related Persons Name: SHARONDA JONAS Name: GISELLE FLORENTINO Insurance Providers [facility] [employer] Plan Information #: 1 Payer: NA Member Number: NA Policy Number: NA Group Number: [id number]
--- OUTSIDE RECORDS SUMMARY | 2024-04-02 22:07 | XMS_ITS | Data Portability ---
Author Organization [place] - [facility] [address] Address [address] [place] [address] Assessment No assessment recorded. Plan of Treatment Reminders Order Date Submit Date Provider Last Modified By Organization Details Last Modified Time Details Appointments None recorded. Lab None recorded. Referral None recorded. Procedures None recorded. Surgeries None recorded. Imaging XR, thumb - right thumb, contusion to hand 1 week ago 2022 023 VIKA Not available 3 15:20:46 XR, chest, 2 view - cough for over 10 days .purulent sputum 2022 023 dovares Not available 3 19:50:48 Medication Orders doxycycline monohydrate 100 mg capsule 2022 023 [facility] #[id number], [address] [place], [place], [id number], 3 03:30:55 benzonatate 200 mg capsule 2022 023 [facility] #[id number], [address] [place], [place], [id number], 3 03:30:55 Patient TargetsNo targets recorded. Patient InstructionsNo instructions recorded. Reason for Referral None Reported. Results Created Date Observation Date Name Description Value Unit Range Abnormal Flag Note LastModifiedBy Organization Detail LastModifiedTime 05/04/19 23 05/04/2022 XR, thumb No observ ation record ed. BARCODE Not Available 2022 15:20:46 Result Notes None recorded. Problems Name Problem SNOMED Code Status Onset Date Resolution Date Notes Provider Name and Address Organization Details Recorded Time Pain in right hand 94387574360084 9 Active 2022 Dinesh Marsh MD [address] [place] [address], [phone], [address] 3 10:40:54 Contusion of right hand 99639871150590 108 Active 2022 Dinesh Marsh MD [address] [place] [address], [phone], [address] 3 11:59:05 Problem Notes None recorded. 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 Medical Equipment None Reported. Allergies Allergen ID Allergen Name Allergen Category Reaction Reaction Severity Criticality Documentation Date Start Date Code Code System Note Provider Name and Address Organization Details Recorded Time 637909 Substance with sulfonami de structure and antibacte rial mechanism of action (substanc e) medicatio n Not available Not available Not available 05/04/2022 18034 8003 SNOMED Heenasharon Lopezin, HANDMADE TILE ARTIST null, [facility] [place] 10:22:55 475030 Medicinal product containin g penicilli n and acting as antibacte rial agent (product) medicatio n Not available Not available Not available 05/04/2022 34445 05 SNOMED Heenasharon Lopezin, HANDMADE TILE ARTIST null, [facility] [place] 10:23:19 555196 shellfish derived food,medi cation Not available Not available Not available 05/04/2022 Heena Rawls LPN null, [place] - [facility] [place] 3 10:23:29 Medications Name Sig Start Date Stop Date Status Note LastModified by Organization Details LastModified Time celecoxib 200 mg capsule TAKE 1 CAPSULE BY MOUTH EVERY DAY active Not Available Not Available No t Available clindamycin HCl 300 mg capsule TAKE 2 CAPSULES 1 HOUR PRIOR TO APPT active Not Available Not Available No t Available benzonatate 200 mg capsule Take 1 capsule 3 times a day by oral route. 2022 active Not Available Not Available Not Avai lable metoprolol succinate ER 50 mg tablet,exten ded release 24 hr Take 1 tablet every day by oral route. active Not Available Not Available No t Available isosorbide mononitrate ER 30 mg tablet,exten ded release 24 hr TAKE 3 TABLETS BY MOUTH DAILY active Not Available Not Available Not Available Prilosec 40 mg capsule,carl yed release Take 1 capsule every day by oral route. active Not Available Not Available No t Available aspirin 81 mg tablet,delay ed release TAKE 1 TABLET BY MOUTH EVERY DAY active Not Available Not Available No t Available acetaminophe n 500 mg tablet Take 2 tablets every 6 hours by oral route as needed. active Not Available Not Available N ot Available amlodipine 10 mg tablet Take 1 tablet every day by oral route. active Not Available Not Available No t Available doxycycline monohydrate 100 mg capsule TAKE 1 CAPSULE BY MOUTH TWICE A DAY active Not Available Not Available No t Available Imdur 60 mg tablet,exten ded release Take 1 tablet twice a day by oral route. active Not Available Not Available No t Available hydrochlorot hiazide 12.5 mg capsule TAKE 1 CAPSULE BY MOUTH EVERY DAY IN THE MORNING active Not Available Not Available No t Available nitroglyceri n 0.[address] 1 TABLET UNDER THE TONGUE EVERY 5 MINUTES NEEDED FOR CHEST PAIN. active Not Available Not Available Not Available gabapentin 300 mg capsule Take 1 capsule twice a day by oral route as needed. active Not Available Not Available No t Available Nitro-Dur 0.4 mg/hr transdermal 24 hour patch Apply 1 patch every day by transdermal route as needed. active Not Available Not Available No t Available fluticasone propionate 50 mcg/actuatio n nasal spray,suspen ananth USE 2 SPRAYS INTO EACH NOSTRIL EVERY DAY active Not Available Not Available No t Available oxycodone 5 mg tablet TAKE 1 TABLET BY MOUTH EVERY 6 HOURS NEEDED FOR PAIN active Not Available Not Available No t Available Asprin Ec Low Dose 81 mg tablet,delay ed release Take 1 tablet every day by oral route. active Not Available Not Available No t Available rosuvastatin 20 mg tablet Take 1 tablet every day by oral route. active Not Available Not Available No t Available Colace active Not Available Not Availa ble Not Available fiber active Not Available Not Availa ble Not Available CoQ10 active Not Available Not Availa ble Not Available hydrochlorot hiazide 12.5 mg tablet Take 1 tablet every day by oral route. active Not Available Not Available No t Available cholecalcife rol (vitamin D3) 50 mcg (2,000 unit) capsule TAKE 1 CAPSULE BY MOUTH EVERY DAY active Not Available Not Available No t Available Calmoseptine 0.44 %-20.6 % topical ointment APPLY 1 EACH TOPICALLY 4 TIMES DAILY. active Not Available Not Available No t Available Arthritis Pain (diclofenac) 1 % topical gel APPLY 2 GRAMS TO THE AFFECTED AREA(S) BY TOPICAL ROUTE 4 TIMES PER DAY as needed active Not Available Not Available No t Available Paxlovid 300 mg (150 mg x 2)-100 mg tablets in a dose pack TAKE 2 NIRMATRELVI R TABLETS WITH 1 RITONAVIR TABLET BY MOUTH TWICE A DAY FOR 5 DAYS active Not Available Not Available No t Available Vitals Date Recorded Body weight Body mass index (BMI) Body height Body temperature Heart rate Respiratory rate Oxygen saturation Oxygen saturation in Arterial blood by Pulse oximetry Systolic blood pressure Diastolic blood pressure Provider Name and Address Organization Details Last Updated DateTime 3 76678.8 1 g 26.9 kg/m2 175.26 cm 98.2 [degF] 56 /min 16 /min 97 % 97 % 131 mm[Hg] 75 mm[Hg] Heena Rawls LPN [place] - [facility]14 [place] 3 10:21:51 Date Recorded Body height Body temperature Heart rate Respiratory rate Oxygen saturation Oxygen saturation in Arterial blood by Pulse oximetry Systolic blood pressure Diastolic blood pressure Provider Name and Address Organization Details Last Updated DateTime 3 175.26 cm 99.3 [degF] 61 /min 16 /min 95 % 95 % 130 mm[Hg] 77 mm[Hg] Judy Crandall RN [place] - [facility] [place] 3 16:35:08 Social History Question Answer Notes LastModified by Organizat ion Details LastModified Time Tobacco Smoking Status Never Smoker Heena RawlsBANDAR Fitzwilli[place], [place] - [facility] [place] 05/04/2022 10:32:20 What Is Your Level Of Alcohol Consumption? None Information not available 05/04/2022 What Is Your Level Of Caffeine Consumption? Moderate Information not available 05/04/2022 What Was The Date Of Your Most Recent Tobacco Screening? 05/04/2022 Information not available 05/04/2022 Sex: Unknown Functional Status None recorded. Mental Status None recorded. Family History Relationship Description Onset Age of this Age Resolved Age Notes LastModified by Organization Details LastModified Time Father Congestive heart failure 89 [email or web address] Not available 2022 10:31:53 Medical History No medical history recorded. Past Encounters Encounter ID Performer Location Encounter Start Date Encounter Closed Date Diagnosis/Indication Diagnosis SNOMED-CT Code Diagnosis ICD10 Code [id number] Dinesh Madrid MD [facility] PCP [address] [place] [address] 05/04/2022 10:07:19 05/04/2022 12:15:03 Pain in right hand 7533843475 59487 M79.641 Contusion of right hand 8472195240 5122930 S60.221A [id number] Robyn curran MD [facility] [address] [facility] [place] [address] 05/23/2022 16:03:26 05/23/2022 17:13:55 Productive cough-yellow sputum 605739573 R09.3 Health Concerns Section Related Observation LastModified by Organization Detai ls LastModified Time None Recorded Concern Status LastModified by Organization Details LastModified Time None Recorded Advance Directives Directive None Recorded Payers Encounter Date Sequence Insurance Name Policy Number Policy Levin Covered Member ID Levin Member ID Guarantor Name 05/04/2022 1 [facility]: MEDICARE PPO BLUE (MEDICARE REPLACEMENT PPO) [id number] Abiodun Colunga [id number] Abiodun Colunga 05/23/2022 1 [facility]: MEDICARE PPO BLUE (MEDICARE REPLACEMENT PPO) [id number] Abiodun Colunga [id number] Abiodun Colunga Notes Date Note Type Note Provider Name and Address Organization Details Recorded Time 05/04/2022 text/html Hand/FingersRepo rted bypatient.Hand Dominance:right Quality:throbbing Severity:moderate Duration:5 days Timing:acute Context:Patient injured himself with the handle of an axe while chopping a tree at home Alleviating Factors:rest Aggravating Factors:gripping; squeezing Associated Symptoms:no weakness; no numbness; no tingling;swelling;ecch ymosis;radiating to thumb/index/middle Previous Surgery:surgical procedure: (joint fusion of thumb) Dinesh remy MD [address] [place] [address], [phone], [address] 05/04/2022 12:01:43 05/23/2022 text/html Upper Respirator y SymptomsReported bypatient.Location:[facility]; head Severity:mild Duration:9 days Onset/Timing:gradual Context:non-smoker Associated Symptoms:no chest pain; no diarrhea; no shortness of breath; no sore throat;cough: productive, purulent moderate;sinus pressure moderate 77 y/o M complain today of sinus pressure, slight headache and productive cough for the past 9 days. Denies NVD, fever. Pt stays he was covid + in March, refuse testing today.SPT maxillary with thick yellow dischargecough with yellow sputumno fever,no chillsno hemoptysis; no legs swelling ,no hx of DVT/PEtried otc [place]quil [place] [address] [place] [address], [phone], [facility] [place] 05/23/2022 17:15:39
--- OUTSIDE RECORDS SUMMARY | 2024-04-02 22:07 | XMS_ITS | Continuity of Care Document ---
Author Organization [facility]esh [facility] Address [address] [place] [address] [address] [place] [address]- Care Team Providers Care Production Stage Manager Name Role Phone Vineet Lott Primary Care Physician [place] [facility] [id number] Date(s): 03/04/24 - 03/11/24 [facility] [address] [place], [place] [address] Attending Physician: Gregorio Thomas MD Referring Physician: Ale Kim DO Encounter Type: Office Visit Allergies, Adverse Reactions, Alerts Substance Criticality Severity [...] dysfunction Confirmed Active Supraventricular tachycardia Confirmed Active Vital Signs Most recent to oldest [Reference Range]: 1 Height 175 cm (03/04/24 9:24 AM) Pulse Rate [55-90 bpm] 68 bpm (03/04/24 9:24 AM) Blood Pressure [90-138/55-84 mm Hg] 129/ 73mm Hg (03/04/24 9:24 AM) Blood pressure sites Arm, left (03/04/24 9:24 AM) Social History Social History Type Response Smoking Status Never smoker; Tobacc o user in household: No entered on: 03/05/14 Sex Sex Representation Male (finding) Note * Eloise Arits MA: PERFORM Event Display: Patient Education/Instruction Authored Date: Ambulatory Adult Visit Summary [facility] Name: ARSEN JONAS : 1945?? Visit: 03/04/2024 09:20?? Ambulatory Visit Instructions ?? Your Care Team Primary Care Provider Vineet Lott? This Visit Provider Gregorio Thomas MD Vitals Signs Pulse Rate: 68 bpm Height: 175 cm Systolic Blood Pressure: 129 mm Hg ?? Diastolic Blood Pressure: 73 mm Hg ?? What to do next Follow-Up Appointments Follow Up with??Gregorio Thomas MD When:??Only if needed Where: [address] [place] [address], [address] [facility] [place] [address]- Medications The list below reflects the information in our records and provided by you today along with any changes made during this visit. Please continue your medications until treatment is completed or stopped by your provider. If this is different from the information you have or there are other questions,please contact the prescribing provider. What How Much When Instructions Unchanged Acetaminophen (acetaminophen 325 mg oral tablet) 650 Milligram Oral Every 6 hours Unchanged Amlodipine (amLODIPine 10 mg oral tablet) 10 Milligram Oral Daily Unchanged Aspirin (aspirin 81 mg oral delayed release tablet) 1 tab(s) Oral Daily Unchanged Celecoxib (CeleBREX 200 mg oral capsule) 1 capsule Oral Daily Unchanged Cholecalciferol (Vitamin D3 oral tablet) 1 tab(s) Oral Daily Unchanged Diclofenac Topical (Voltaren 1% topical gel) 1 azeb Topically 4 times a day as needed for for pain Unchanged Gabapentin (gabapentin 300 mg oral capsule) 1 capsule Oral Twice a day Unchanged Hydrochlorothiazide (hydroCHLOROthiazide 12.5 mg oral capsule) 1 capsule Oral Daily Unchanged Isosorbide Mononitrate (Imdur ER) 90 Milligram Oral Daily Unchanged Metoprolol (Metoprolol Succinate ER 50 mg oral tablet, extended release) 1 tab(s) Oral Daily Unchanged Multivitamin With Minerals (Centrum Silver Men's) 1 tab(s) Oral Daily Unchanged Nitroglycerin Unchanged Omeprazole (omeprazole 40 mg oral enteric coated capsule) 1 capsule Oral Twice a day Unchanged Rosuvastatin 20 Milligram Oral Daily Medications and Immunizations Administered Medications Given During Visit No medications given during this visit.?? Allergies (NKA means No Known Allergies) penicillins??(facial swelling) shellfish??(difficulty breathing) sulfa drugs??(facial swelling) Common Emergency Awareness Tips IS IT A STROKE? Act FAST and Check for these signs: FACE Does the face look uneven? ARM Does one arm drift down? SPEECH Does their speech sound strange? TIME Call 9-1-1 at any sign of stroke ?? Heart Attack Signs Chest discomfort: Most heart attacks involve discomfort in the center of the chest and lasts more than a few minutes, or goes away and comes back. It can feel like uncomfortable pressure, squeezing, fullness or pain. Discomfort in upper body: Symptoms can include pain or discomfort in one or both arms, back, neck, jaw or stomach. Shortness of breath: With or without discomfort. Other signs: Breaking out in a cold sweat, nausea, or lightheaded. Remember, MINUTES DO MATTER. If you experience any of these heart attack warning signs, call to get immediate medical attention! ?? Smoking can increase your chances of developing chronic health problems and can cause harmful effects to other family members in your house. If you smoke, you are strongly encouraged to quit. Please call [facility] at [phone] or [phone] ([phone]) or log in to www.[facility].org for referrals to smoking cessation programs. ?? The National Suicide Prevention Hotline is available 13/11 if you or someone you know needs to find a reason to keep living. By calling 5-710-378-Outcome Referrals (2020) you'll be connected to a skilled, trained counselor at a crisis center in your area. [facility] You can view and manage your care through the patient portal or by using a health care azeb of your choosing. [employer] is a website that allows you to securely view your medical information including your hospital discharge summary, office visit summaries, medications and follow-up visits. You can also request appointments, renew medications, and request access to your medical information using a health care azeb of your choosing, or just ask a question. You can enroll at [email or web address] [email or web address] or register during your next office visit. [facility], in keeping with [facility] guidance, no longer requires face masks for staff, patientsor visitors in most situations. Similiar to time spent indoors at other locations, there is the chance that you were exposed to repiratory viruses during your time with us (such as flu or COVID-19). If you develop symptoms concerning for a viral respiratory infection, please seek testing (and treatment if indicated) from your medical provider or home test kit. ?? Disclaimer: The information provided is of a general nature and is intended to be used in conjunction with the recommendations and advice of your health care practitioner. Every effort has been made to ensure that the information provided is accurate and complete at the time it is provided to you however, as your needs change, or, as new information becomes available, different or additional instructions may be required. ?? If you have questions, please consult with your primary care provider or pharmacist, as appropriate. This information is not intended to serve as substitution for assessment and evaluation by a qualified health care provider. If you do not have a primary care provider, you may find a [facility] provider by calling [facility] at [phone]. Patient Care team information Care Team Personnel Name: Fozia Alvarado RN Position: [facility] SN RN Member Role: Primary Care Nurse Name: Jeferson Chapman RN Position: S RN Member Role: Primary Care Nurse Name: Vineet Lott Position: [facility] PCO Associate Professional Member Role: PCP Address: [address] [place] [address] Telecom: Name: Courtney Mahmood RN Position: [facility] SN RN Member Role: Primary Care Nurse Name: Iqra Urbina RN Position: S RN Member Role: Primary Care Nurse Name: Dada Hernandez RN Position: S RN Member Role: Primary Care Nurse Name: Rachel Grant RN Position: S RN Member Role: Primary Care Nurse Name: Maida Weinstein RN Position: S RN Member Role: Primary Care Nurse Care Team Related Persons Name: SHARONDA JONAS Name: GISELLE FLORENTINO Insurance Providers Guarantor name: ARSEN JONAS Health Plan Information #: 1 Payer: NA Member Number: [id number] Policy Number: NA Group Number: [id number] Health Plan Information #: 2 Payer: NA Member Number: [id number] Policy Number: NA Group Number: [id number]
== END 2024-04-01 14:56 | disposition home or self-care (01) ==
PROVIDERS: PCP Physician Assistant; Visit Provider Physician Assistant
DX: Z98.890 Other specified postprocedural states (principal)
CPT/HCPCS: 99024

== ENCOUNTER → 2024-04-01 14:30 | Outpatient (BNVA) | payer MEDICARE, SELFPAY | PROVIDERS: PCP Physician Assistant; Visit Provider Physician Assistant | DX: Z51.89 Encounter for other specified aftercare (principal); Z98.890 Other specified postprocedural states | CPT/HCPCS: 99212 ==

== ENCOUNTER 2024-05-08 09:07 | Outpatient (AMB) | payer MEDICARE, SELFPAY ==
--- NOTE | 2024-05-08 09:11 | HO.SPINEOV ---
Intake Visit Reasons: 2nd post op Intake Note: Mr. Colunga is here today for his 2nd post op. 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 To recap during her last visit he was continuing to have quite a bit of left-sided hip pain near his left SI joint. I prescribed him a course of steroids and encouraged him to come back for subsequent follow-up. Thankfully he does feel a bit better since his last visit, but still has some pain near the incision site and some trouble with his gait, mostly favoring his left side as his right leg hurts. I inspected the incision site area which is well healing and shows no evidence of postoperative complication. We discussed the postoperative healing course and I answered all of his questions to the best of my ability. He will be going on vacation of [place] in the coming weeks, but may want a referral for physical therapy when he gets back. No new neurological deficits. The patient ambulates well and rises from a seated position without difficulty. Posterior incision sites appear closed tried well healing. I would like Abiodun to follow up with us again when he gets back from [place]. If he continues to have difficulties with his gait and pain in his low back I may consider sending him to physical therapy. Perez Guevara MD,PhD [facility] Coding Level of Care Code Global (41631) Diagnoses S/P spinal surgery Z98.890
--- OUTSIDE RECORDS SUMMARY | 2024-05-08 09:53 | XMS_ITS | Continuity of Care Document ---
Author Organization [facility] Address [address] [place] [address]- Care Team Providers Care Plastic Block Boiler Reliner Name Role Phone Vineet Lott Primary Care Physician [phone] Encounter [facility] [place] [id number] Date(s): 03/18/24 - 04/17/24 [facility] [address] [place] [address] Attending Physician: Chandan Mao Admitting Physician: Chandan Mao Referring Physician: AdmtrChandan Encounter Type: Triage Allergies, Adverse Reactions, Alerts [...] By Mouth, Daily, # 90 tablet, Refills 3, Tot. Refills 3, Maintenance, 04/03/24 6:49:00 AM EST, Route to Pharmacy Electronically, [facility]/pharmacy #[id number], Partial fill upon patient request if the prescription is for a schedule II opioid drug., 175, cm, 03/04/24 9:24:00 EST, Height Start Date: 04/03/24 Status: Ordered Quantity: 90.0 Unit: tablet Repeat number: 4 Nitroglycerin 0 Refills, Maintenance, 09/04/19 4:12:00 PM [...] Team Personnel Name: Fozia Alvarado RN Position: [facility] RN Member Role: Primary Care Nurse Name: Jeferson Chapman RN Position: [facility] RN Member Role: Primary Care Nurse Name: Vineet Lott Position: [facility] PCO Associate Professional Member Role: PCP Address: [address] [place] [address]- Telecom: Name: Courtney Mahmood RN Position: [facility] RN Member Role: Primary Care Nurse Name: Iqra Urbina RN Position: S RN Member Role: Primary Care Nurse Name: Dada Hernandez RN Position: [facility] RN Member Role: Primary Care Nurse Name: Rachel Grant RN Position: S RN Member Role: Primary Care Nurse Name: Maida Weinstein RN Position: [facility] RN Member Role: Primary Care Nurse Care Team Related Persons Name: SHARONDA JONAS Name: GISELLE FLORENTINO Insurance Providers Guarantor name: ARSEN JONAS Health Plan Information #: 1 Payer: NA Member Number: NA Policy Number: NA Group Number: NA
--- OUTSIDE RECORDS SUMMARY | 2024-05-08 09:53 | XMS_ITS | Continuity of Care Document ---
Author Organization [facility] Address [address] [place] [address]- Care Team Providers Care Cylinder Dyer Name Role Phone Vineet Lott Primary Care Physician [id number]): [facility] [address] [place] [address] Attending Physician: Bhaskar Ham MD Referring Physician: Martha KLEIN, Gregorio Adame Encounter Type: Pre Office Visit Allergies, Adverse Reactions, Alerts Substance [...] 6:49:00 AM EST, Route to Pharmacy Electronically, [facility]/pharmacy #[id number], Partial fill upon patient request if the [...] Team Personnel Name: Fozia Alvarado RN Position: [facility] RN Member Role: Primary Care Nurse Name: Jeferson Chapman RN Position: S RN Member Role: Primary Care Nurse Name: Vineet Lott Position: [facility] PCO Associate Professional Member Role: PCP Address: [address] [place] [address]- Telecom: Name: Courtney Mahmood RN Position: [facility] RN Member Role: Primary Care Nurse Name: Iqra Urbina RN Position: S RN Member Role: Primary Care Nurse Name: Dada Hernandez RN Position: S RN Member Role: Primary Care Nurse Name: Rachel Grant RN Position: [facility] RN Member Role: Primary Care Nurse Name: Maida Weinstein RN Position: S RN Member Role: Primary Care Nurse Care Team Related Persons Name: SHARONDA JONAS Name: GISELLE FLORENTINO Insurance Providers Guarantor name: ARSEN JONAS Health Plan Information #: 1 Payer: NA Member Number: [id number] Policy Number: NA Group Number: [id number] Health Plan Information #: 2 Payer: NA Member Number: [id number] Policy Number: NA Group Number: NA
--- OUTSIDE RECORDS SUMMARY | 2024-05-08 09:53 | XMS_ITS | Data Portability ---
Author Organization [place] [facility] [address] Address [address] [address] Assessment No assessment recorded. Plan of Treatment [...] doxycycline monohydrate 100 mg capsule 2022 023 [facility]/Pharmacy #[id number], [address] [place], [place], [phone], 3 03:30:55 benzonatate 200 mg capsule 2022 023 [facility]/Pharmacy #[id number], [email or web address] [place], [place], [phone], 3 03:30:55 Patient TargetsNo targets recorded. Patient [...] Details Recorded Time Pain in right hand 19816440854177 9 Active 2022 Dinesh Marsh MD [address] [place] [address], [phone], [address] 3 10:40:54 Contusion of right hand 74513969854661 108 Active 2022 Dinesh Marsh MD [address] [place] [address], [phone], [address] 3 11:59:05 Problem Notes None recorded. 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 Medical Equipment None Reported. Allergies Allergen ID Allergen Name Allergen Category Reaction Reaction Severity Criticality Documentation Date Start Date Code Code System Note Provider Name and Address Organization Details Recorded Time 472454 Substance with sulfonami de structure and antibacte rial mechanism of action (substanc e) medicatio n Not available Not available Not available 05/04/2022 56122 8003 SNOMED Heenasharon Lopezin, PRESSING MACHINE OPERATOR null, [facility] [place] 10:22:55 337304 Medicinal product containin g penicilli n and acting as antibacte rial agent (product) medicatio n Not available Not available Not available 05/04/2022 22531 05 SNOMED Heenasharon Lopezin, PRESSING MACHINE OPERATOR null, [facility] [place] 10:23:19 541090 shellfish derived food,medi cation Not available Not available Not available 05/04/2022 Heena Rawls LPN null, [place] [facility] [place] 3 10:23:29 Medications Name Sig Start Date [...] t Available Vitals Date Recorded Body weight Provider Name an d Address Organization Details Last Updated DateTime 05/04/2022 52505.81 g [facility] [place] 05/04/2022 10:21:28 Date Recorded Body mass index (BMI) Body height Provider Name and Address Organization Details Last Updated DateTime 05/04/2022 26.9 kg/m2 175.26 cm Heena BANDAR Rawls [facility] [place] 05/04/2022 10:21:35 Date Recorded Body temperature Provider Name a nd Address Organization Details Last Updated DateTime 05/04/2022 98.2 [degF] Heena Sinai [facility] [place] 05/04/2022 10:21:41 Date Recorded Heart rate Provider Name an d Address Organization Details Last Updated DateTime 05/04/2022 56 /min Heena Rawls [facility] [place] 05/04/2022 10:21:56 Date Recorded Respiratory rate Provider Name a nd Address Organization Details Last Updated DateTime 05/04/2022 16 /min Heena Johngauri BANDAR [address] 05/04/2022 10:21:59 Date Recorded Oxygen saturation Oxygen saturation in Arterial blood by Pulse oximetry Provider Name and Address Organization Details Last Updated DateTime 05/04/2022 97 % 97 % Heena BANDAR Rawls [address] 05/04/2022 10:22:08 Date Recorded Pain severity - 0-10 verbal numeric rating [Score] - Reported Provider Name and Address Organization Details Last Updated DateTime 05/04/2022 5 Heena BANDAR Rawls [address] 05/04/2022 10:22:13 Date Recorded Body height Provider Name an d Address Organization Details Last Updated DateTime 05/23/2022 175.26 cm Judy Crandall RN [facility] [place] 16:34:48 Date Recorded Body temperature Provider Name a nd Address Organization Details Last Updated DateTime 05/23/2022 99.3 [degF] Judy Crandall RN [address] 0 05/23/2022 16:35:01 Date Recorded Heart rate Respiratory rate Provider N dago and Address Organization Details Last Updated DateTime 05/23/2022 61 /min 16 /min Judy Crandall RN [facility] [place] 05/23/2022 16:35:10 Date Recorded Oxygen saturation Oxygen saturation in Arterial blood by Pulse oximetry Provider Name and Address Organization Details Last Updated DateTime 05/23/2022 95 % 95 % Judy Crandall RN [facility] [place] 05/23/2022 16:35:13 Date Recorded Systolic blood pressure Diastolic blood pressure Provider Name and Address Organization Details Last Updated DateTime 05/04/2022 131 mm[Hg] 75 mm[Hg] Heena Rawls LPN [address] 05/04/2022 10:21:51 Date Recorded Systolic blood pressure Diastolic blood pressure Provider Name and Address Organization Details Last Updated DateTime 05/23/2022 130 mm[Hg] 77 mm[Hg] Judy Crandall RN [address] 05/23/2022 16:35:08 Social History Question Answer Notes LastModified by Organizat ion Details LastModified Time Tobacco Smoking Status Never Smoker Heena BANDAR Rawls null, [address] 05/04/2022 10:32:20 What Is Your Level Of [...] Diagnosis/Indication Diagnosis SNOMED-CT Code Diagnosis ICD10 Code Diagnosis Note [id number] Dinesh Madrid MD [facility] [address] [place] [address] 05/04/2022 10:07:19 05/04/2022 12:15:03 Pain in right hand [id number] 22066 M79.641 Contusion of right hand [id number] 4517143 S60.221A Xray shows no fracture, soft tissue swelling appreciate d.Advised ice packs/heat packs prnTylenol or simialr prn for pain. [id number] Robyn curran MD [facility] [address] [facility] [address] [address] 05/23/2022 16:03:26 05/23/2022 17:13:55 Productive cough-yellow sputum [id number] R09.3 Cough with purulent sputum for over 9 days and acute sinusitis maxillary with purulent sputum, suspect bacterial sinusitis. Encourage fluids, steamer, nasal saline rinse twice a day, use Mucinex.Te ssalon Perles prescribed for coughStart doxycyclin e 100 mg twice daily for 10 days to cover sinus infection and respirator y infection, bacterialP atient is subfebrile . If not better in couple of days patient advised to come for chest x-ray/orde r placed todaySeek medical attention right away if worse, new symptoms or concern Health Concerns Section Related Observation LastModified by Organization Detai ls LastModified Time None Recorded Concern Status LastModified by Organization Details LastModified Time None Recorded Advance Directives Directive None Recorded Payers Encounter Date Sequence Insurance Name Policy Number Policy Levin Covered Member ID Levin Member ID Guarantor Name 05/04/2022 1 [place] (MEDICARE [place]PLACEMENT PPO) [id number] Abiodun Colunga [id number] Abiodun Colunga 05/23/2022 1 [facility] (MEDICARE [place]PLACEMENT PPO) [id number] Abiodun Colunga [id number] Abiodun Colunga Notes Date Note Type [...] (joint fusion of thumb) Dinesh remy MD [address] [place] [address], [phone] 05/04/2022 12:01:43 05/23/2022 text/html Upper Respirator y SymptomsReported bypatient.Location:[facility]; head Severity:mild Duration:9 days Onset/Timing:gradual [...] and did not help Robyn Reyes MD [address] [place] [address], [phone], [facility] [place] 05/23/2022 17:15:39
--- OUTSIDE RECORDS SUMMARY | 2024-05-08 09:53 | XMS_ITS | Continuity of Care Document ---
Author Organization [facility] Rajesh [facility] Address [address] [place] [address] [address] [place] [address]- Care Team Providers Care Secured Entrance Monitor Name Role Phone Vineet Lott Primary Care Physician [phone] Encounter [facility] [id number] Date(s): 04/29/24 - 05/06/24 [facility] [address] [place], [place] [address] Attending Physician: Gregorio Thomas MD Encounter Type: Office Visit Allergies, Adverse Reactions, [...] amLODIPine 10 mg oral tablet 10 mg, 1, tablet, By Mouth, Daily, # 90 tablet, Refills 3, Tot. Refills 3, Maintenance, 04/28/24 11:54:00 AM EST, Route to Pharmacy Electronically, [facility]/pharmacy #[id number], Partial fill upon patient requestif the prescription is for a schedule II opioid drug., 175, cm, 03/04/24 9:24:00 EST, Height Start Date: 04/28/24 Status: Ordered Quantity: 90.0 Unit: tablet Repeat number: 4 aspirin 81 mg oral delayed release tablet [...] AM EST, Route to Pharmacy Electronically, [facility]/pharmacy #[id number], Partial fill upon patient request if the [...] oldest [Reference Range]: 1 Height 175 cm (04/29/24 12:59 PM) Weight 86.8 kg (04/29/24 12:59 PM) Pulse Rate [55-90 bpm] 68 bpm (04/29/24 12:59 PM) Body Mass Index [18.5-24.99 kg/m2] 28.34 kg/m2 *H* (04/29/24 12:59 PM) Blood Pressure [90-138/55-84 mm Hg] 127/ 70mm Hg (04/29/24 12:59 PM) Blood pressure sites Arm, right (04/29/24 12:59 PM) Dry Weight 86.8 kg (04/29/24 12:59 PM) Weight Obtained Via Standing scale (04/29/24 12:59 PM) Dry Weight Obtained Via Standing scale (04/29/24 12:59 PM) Social History Social History Type Response Smoking Status Never smoker; Tobacc o user in household: No entered on: 03/05/14 Sex Sex Representation Male (finding) Note * Aniya CRAMER, Basia: PERFORM Event Display: Patient Education/Instruction Authored Date: [id number] Ambulatory Adult Visit Summary [facility] Name: ARSEN JONAS : 1945?? Visit: 04/29/2024 12:48?? Ambulatory Visit Instructions ?? Your Care Team Primary Care Provider Vineet Lott? This Visit Provider Gregorio Thomas MD Vitals Signs Pulse Rate: 68 bpm Height: 175 cm Systolic Blood Pressure: 127 mm Hg Weight: 86.8 kg Diastolic Blood Pressure: 70 mm Hg Body Mass Index:??28.34 kg/m2??High ?? Body surface area: 2.05 What to do next Scheduled Follow-Up Appointments Sunday 1:00 PM EST ?? With: Vineet Lott Where: [facility] [address] [place] [address]- Status: Pending Follow-Up Appointments Follow Up with??Gregorio Thomas MD Where: [address] [facility] [place] [address]- Medications The list below reflects the information [...] Unchanged Amlodipine (amLODIPine 10 mg oral tablet) 1 tab(s) Oral Daily Unchanged Aspirin (aspirin 81 mg [...] Does their speech sound strange? TIME Call at any sign of stroke ?? Heart [...] are strongly encouraged to quit. Please call [employer] [facility] at [phone] or [phone] ([phone]) or log in to [email or web address] for referrals to smoking cessation programs. ?? The National Suicide Prevention Hotline is available 13/11 if you or someone you know needs to find a reason to keep living. By calling 7-195-742-cmne (3566) you'll be connected to a skilled, trained counselor at a crisis center in your area. [facility] You can view and manage your care through the patient portal or by using a health care azeb of your choosing. [employer] is a website that allows you to securely view your medical information including your hospital discharge summary, office visit summaries, medications and follow-up visits. You can also request appointments, renew medications, and request access to your medical information using a health care azeb of your choosing, or just ask a question. You can enroll at [email or web address] or register during your next office visit. [facility], in keeping with [facility] guidance, no longer requires face [...] primary care provider, you may find a [facility] provider by calling [facility] at [phone]. Patient Care team information Care Team Personnel Name: Fozia Alvarado RN Position: [facility] RN Member Role: Primary Care Nurse Name: Jeferson Chapman RN Position: [facility] RN Member Role: Primary Care Nurse Name: Vineet Lott Position: [facility] PCO Associate Professional Member Role: PCP Address: [address] [place] [address] [place] [address]- [place] Telecom: Name: Courtney Mahmood RN Position: [facility] SN RN Member Role: Primary Care Nurse Name: Iqra Urbina RN Position: S RN Member Role: Primary Care Nurse Name: Dada Hernandez RN Position: S RN Member Role: Primary Care Nurse Name: Rachel Grant RN Position: [facility] RN Member Role: Primary Care Nurse Name: Maida Weinstein RN Position: [facility] RN Member Role: Primary Care Nurse Care Team Related Persons Name: SHARONDA JONAS Name: GISELLE FLORENTINO Insurance Providers Guarantor name: ARSEN JONAS Health Plan Information #: 1 Payer: BERENICE Member Number: [id number] Policy Number: BERENICE Group Number: [id number] Health Plan Information #: 2 Payer: NA Member Number: [id number] Policy Number: NA Group Number: NA
--- OUTSIDE RECORDS SUMMARY | 2024-05-08 09:53 | XMS_ITS | Continuity of Care Document ---
Author Organization [facility] Rajesh dale Address [address] [place] [address] [address] [place] [address]- Care Team Providers Care Warehouse Man Name Role Phone Vineet Lott Primary Care Physician Encounter [facility] [place] [place] Date(s): 03/17/24 - 04/16/24 [facility] [address] [place] [id number] Encounter Type: Triage Allergies, Adverse Reactions, Alerts [...] 6:49:00 AM EST, Route to Pharmacy Electronically, [facility]/pharmacy #[id number], Partial fill upon patient request if the [...] Team Personnel Name: Fozia Alvarado RN Position: [facility] RN Member Role: Primary Care Nurse Name: Jeferson Chapman RN Position: [facility] RN Member Role: Primary Care Nurse Name: Vineet Lott Position: [facility] PCO Associate Professional Member Role: PCP Address: [address] [place] [address] [place] [address]- Telecom: Name: Courtney Mahmood RN Position: [facility] RN Member Role: Primary Care Nurse Name: Iqra Urbina RN Position: S RN Member Role: Primary Care Nurse Name: Dada Hernandez RN Position: S RN Member Role: Primary Care Nurse Name: Rachel Grant RN Position: [facility] RN Member Role: Primary Care Nurse Name: Maida Weinstein RN Position: S RN Member Role: Primary Care Nurse Care Team Related Persons Name: SHARONDA JONAS Name: GISELLE FLORENTINO Insurance Providers Guarantor name: ARSEN LIZETTLEXUS Health Plan Information #: 1 Payer: NA Member Number: NA Policy Number: NA Group Number: NA
--- OUTSIDE RECORDS SUMMARY | 2024-05-08 09:53 | XMS_ITS | Continuity of Care Document ---
Author Organization [facility] Address [address] [place] [address]- Care Team Providers Care Lead Architect Name Role Phone Vineet Lott Primary Care Physician Encounter [facility] Date(s): 04/02/24 - 05/02/24 [facility] [address] [place], [place] [address] Encounter Type: Triage Allergies, Adverse Reactions, [...] 11:54:00 AM EST, Route to Pharmacy Electronically, [facility]/pharmacy #[id number], Partial fill upon patient requestif the prescription [...] 6:49:00 AM EST, Route to Pharmacy Electronically, [facility]/pharmacy #[id number], Partial fill upon patient request if the [...] Team Personnel Name: Fozia Alvarado RN Position: [facility] RN Member Role: Primary Care Nurse Name: Jeferson Chapman RN Position: [facility] RN Member Role: Primary Care Nurse Name: Vineet Lott Position: [facility] PCO Associate Professional Member Role: PCP Address: [address] [place] [address] [place] [address]- Telecom: Name: Courtney Mahmood RN Position: [facility] SN RN Member Role: Primary Care Nurse Name: Iqra Urbina RN Position: [facility] RN Member Role: Primary Care Nurse Name: Daad Hernandez RN Position: [facility] RN Member Role: Primary Care Nurse Name: Rachel Grant RN Position: [facility] RN Member Role: Primary Care Nurse Name: Maida Weinstein RN Position: [facility] RN Member Role: Primary Care Nurse Care Team Related Persons Name: SHARONDA JONAS Name: GISELLE FLORENTINO Insurance Providers Guarantor name: ARSEN JONAS Health Plan Information #: 1 Payer: NA Member Number: NA Policy Number: NA Group Number: NA
== END 2024-05-08 09:51 | disposition home or self-care (01) ==
PROVIDERS: PCP Physician Assistant; Visit Provider Physician Assistant
DX: Z98.890 Other specified postprocedural states (principal)
CPT/HCPCS: 99024

== ENCOUNTER → 2024-05-08 09:07 | Outpatient (BNVA) | payer MEDICARE, SELFPAY | PROVIDERS: PCP Physician Assistant; Visit Provider Physician Assistant | DX: R26.89 Other abnormalities of gait and mobility (principal); Z47.89 Encounter for other orthopedic aftercare; Z98.890 Other specified postprocedural states | CPT/HCPCS: 99212 ==

== ENCOUNTER 2024-07-28 13:20 | Outpatient (AMB) | payer MEDICARE, SELFPAY ==
--- NOTE | 2024-07-28 13:30 | HO.SPINEOV ---
Intake Visit Reasons: recurring pain after surgery Intake Note: Mr. Colunga is here today c/o recurring pain after surgery. 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 Paola carlson in February of 2024. Please see my previous office note for specifics regarding this problem. Unfortunately, Brendan continues to struggle with left-sided posterior hip pain, which he describes his shooting pain across his low back and down his left posterior buttocks into the left lateral thigh. He recently returned from a vacation down in [place] where his became very sick and was hospitalized. He now returns to [place] to try and address his low back pain and shooting pains that persist despite surgical intervention. Allergies: No changes since last visit. Medications: No changes since last visit. Exam: Brendan has 5/5 strength in his upper and lower extremities. He ambulates well with the assistance of a 4 pronged cane. He has no significant sensational deficits on examination. (-) bilateral straight leg raise. Plan: I believe that Brendan would benefit from a course of physical therapy to work out some of the residual musculoskeletal pains that he has since his last surgery. If in fact this does not help his pain, I may consider ordering a postoperative MRI to evaluate for any worsening nerve compression. He should also have a set of flexion/extension x-rays ordered to evaluate for any instability as he had two decompression surgeries. If he does not end up having any pathology noted on x-ray imaging or MRI, it may be worth sending him for a set of left-sided SI joint injections. Perez Guevara MD,PhD [facility] Coding Level of Care Code Est Pt Level 2 (67621) Diagnoses Lumbar radiculopathy M54.16
--- OUTSIDE RECORDS SUMMARY | 2024-07-28 15:50 | XMS_ITS | Continuity of Care Document ---
Author Organization [facility] Address [address] [place] [address]- Care Team Providers Care Home And Family Living Professor Name Role Phone Vineet Lott Primary Care Physician Encounter [facility] [id number] Date(s): 06/24/24 - 07/24/24 [facility] [address] [place], [place] [address] Attending Physician: Chandan Mao Admitting Physician: [...] Mouth, Daily, # 90 tablet, Refills 0, Tot. Refills 0, Maintenance, 06/06/24 9:10:00 AM EST, Route to Pharmacy Electronically, [facility]/pharmacy #[id number], Partial fill upon patient requestif the prescription is for a schedule II opioid drug., 175, cm, 05/08/24 11:00:00 EST, Height, 86.8, kg, 04/29/24 12:59:00 EST, Dry Weight Start Date: 06/06/24 Status: Ordered Quantity: 90.0 Unit: tablet Repeat number: 1 aspirin 81 mg oral delayed release tablet 81 mg, 1, tablet, By Mouth, Daily, # 30 tablet, Refills 0, Maintenance, 07/01/18 2:45:09 PM EDT Start Date: 07/01/18 Status: Ordered Quantity: 30.0 Unit: tablet Repeat number: 1 CeleBREX 200 mg oral capsule 1 capsule = 200 mg, By Mouth, Daily, # 90 capsule, 0 Refills, Maintenance, 06/06/24 9:10:00 AM EST, Capsule, [facility]/pharmacy #[id number], Partial fill upon patient request if the prescription is for a scheduleII opioid drug., 175, cm, 05/08/24 11:00:00 EST, Height, 86.8, kg, 04/29/24 12:59:00 EST, Dry Weight Start Date: 06/06/24 Stop Date: 09/04/24 Status: Ordered Quantity: 90.0 Unit: capsule Repeat number: 1 Centrum Silver Men's 1 tablet, By Mouth, Daily, 0 Refills, Maintenance, 07/01/18 2:50:14 PM EDT Start Date: 07/01/18 Status: Ordered Repeat number: 1 diclofenac 1% topical gel 2.25 inches, Topically, 4 times a day, # 50 Gm, 0 Refills, Maintenance, 06/06/24 4:07:00 PM EST, [facility]/pharmacy #[id number], Partial fill upon patient request if the prescription is for a schedule II opioid drug., 175, cm, 05/08/24 11:00:00 EST, Height, 86.8, kg, 04/29/24 12:59:00 EST, Dry Weight Start Date: 06/06/24 Status: Ordered Quantity: 50.0 Unit: g Repeat number: 1 gabapentin 300 mg oral capsule 300 mg, 1, capsule, By Mouth, 3 times a day, # 90 capsule, Refills 1, Tot. Refills 1, Maintenance, 06/06/24 9:40:00 AM EST, Route to Pharmacy Electronically, [facility]/pharmacy #[id number], Partial fill upon patient request if the prescription is for a schedule II opioid drug., 175, cm, 05/08/24 11:00:00 EST, Height, 86.8, kg, 04/29/24 12:59:00 EST, Dry Weight Start Date: 06/06/24 Status: Ordered Quantity: 90.0 Unit: capsule Repeat number: 2 hydroCHLOROthiazide 12.5 mg oral capsule 1 capsule = 12.5 mg, By Mouth, Daily, # 90 capsule, 0 Refills, Maintenance, 06/06/24 4:07:00 PM EST,Capsule, [facility]/pharmacy #[id number], Partial fill upon patient request if the prescription is for a schedule II opioid drug., 175, cm, 05/08/24 11:00:00 EST, Height, 86.8, kg, 04/29/24 12:59:00 EST, Dry Weight Start Date: 06/06/24 Stop Date: 09/04/24 Status: Ordered Quantity: 90.0 Unit: capsule Repeat number: 1 isosorbide mononitrate 30 mg oral tablet, extended release 90 mg, 3, tablet, By Mouth, Daily, # 270 tablet, Refills 0, Tot. Refills 0, Maintenance, 06/06/24 9:41:00 AM EST, Route to Pharmacy Electronically, [facility]/pharmacy #[id number], Partial fill upon patient request if the prescription is for a schedule II opioid drug., 175, cm, 05/08/24 11:00:00 EST, Height, 86.8, kg, 04/29/24 12:59:00 EST, Dry Weight Start Date: 06/06/24 Stop Date: 09/04/24 Status: Ordered Quantity: 270.0 Unit: tablet Repeat number: 1 Metoprolol Succinate ER 50 mg oral tablet, extended release 50 mg, 1, tablet, By Mouth, Daily, # 90 tablet, Refills 0, Tot. Refills 0, Maintenance, 06/06/24 4:07:00 PM EST, Route to Pharmacy Electronically, [facility]/pharmacy #[id number], Partial fill upon patient requestif the prescription is for a schedule II opioid drug., 175, cm, 05/08/24 11:00:00 EST, Height, 86.8, kg, 04/29/24 12:59:00 EST, Dry Weight Start Date: 06/06/24 Status: Ordered Quantity: 90.0 Unit: tablet Repeat number: 1 Nitroglycerin 0 Refills, Maintenance, 09/04/19 4:12:00 PM EDT Start Date: 09/04/19 Status: Ordered Repeat number: 1 omeprazole 40 mg oral enteric coated capsule 1 capsule = 40 mg, By Mouth, 2 times a day, # 180 capsule, 0 Refills, Maintenance, 06/06/24 4:07:00 PM EST, Suspension, [facility]/pharmacy #[id number], Partial fill upon patient request if the prescription is fora schedule II opioid drug., 175, cm, 05/08/24 11:00:00 EST, Height, 86.8, kg, 04/29/24 12:59:00 EST, Dry Weight Start Date: 06/06/24 Stop Date: 09/04/24 Status: Ordered Quantity: 180.0 Unit: capsule Repeat number: 1 rosuvastatin 20 mg oral tablet = 20 mg, By Mouth, Daily, # 90 tablet, 0 Refills, Maintenance, 06/06/24 4:07:00 PM EST, Tablet, [facility]/pharmacy #[id number], Partial fill upon patient request if the prescription is for a schedule II opioid drug., 175, cm, 05/08/24 11:00:00 EST, Height, 86.8, kg, 04/29/24 12:59:00 EST, Dry Weight Start Date: 06/06/24 Stop Date: 09/04/24 Status: Ordered Quantity: 90.0 Unit: tablet Repeat number: 1 Vitamin D3 oral tablet 1 tablet = 400 International_Units, By Mouth, Daily, # 30 tablet, 0 Refills, Maintenance, 07/01/18 2:49:26 PM EDT, Tablet Start Date: 07/01/18 Status: Ordered Quantity: 30.0 Unit: tablet Repeat number: 1 Problem List Condition Confirmation [...] on: 03/05/14 Sex Sex Representation Male (finding) Laboratory * Event Display: Non-[facility] Pathology Lab Results Authored Date: * Event Display: Non [facility] Lab Results Authored Date: Patient Care team information Care Team Personnel Name: Fozia Alvarado RN Position: [facility] SN RN Member Role: Primary Care Nurse Name: Jeferson Chapman RN Position: S RN Member Role: Primary Care Nurse Name: Vineet Lott Position: [facility] PCO Associate Professional Member Role: PCP Address: [address] [place] [address] [place] [id number] Telecom: Name: Courtney Mahmood RN Position: [facility] SN RN Member Role: Primary Care Nurse Name: Iqra Urbina RN Position: [facility] RN Member Role: Primary Care Nurse Name: Dada Hernandez RN Position: [facility] RN Member Role: Primary Care Nurse Name: Rachel Grant RN Position: [facility] RN Member Role: Primary Care Nurse Name: Maida Weinstein RN Position: [facility] RN Member Role: Primary Care Nurse Care Team Related Persons Name: SHARONDA JONAS Name: GISELLE FLORENTINO Insurance Providers Guarantor name: ARSEN JONAS Health Plan Information #: 1 Payer: NA Member Number: NA Policy Number: NA Group Number: NA
--- OUTSIDE RECORDS SUMMARY | 2024-07-28 15:50 | XMS_ITS | Continuity of Care Document ---
Author Organization [facility] Address [address] [place] [address]- Care Team Providers Care Fur Sewer Name Role Phone Vineet Lott Primary Care Physician Encounter [facility] Date(s): 03/26/24 - 07/24/24 [facility] [address] [place], [place] [address] Attending Physician: Stella Mcgraw MD Encounter Type: Pre-OutPatient One Time Allergies, Adverse Reactions, Alerts Substance Criticality Severity [...] 9:10:00 AM EST, Route to Pharmacy Electronically, [facility]/pharmacy #[id number], Partial fill upon patient requestif the prescription [...] Refills, Maintenance, 06/06/24 9:10:00 AM EST, Capsule, [facility]/pharmacy #[id number], Partial fill upon patient request [...] 0 Refills, Maintenance, 06/06/24 4:07:00 PM EST, [facility]/pharmacy #[id number], Partial fill upon patient request [...] 9:40:00 AM EST, Route to Pharmacy Electronically, [facility]/pharmacy #[id number], Partial fill upon patient request [...] 0 Refills, Maintenance, 06/06/24 4:07:00 PM EST,Capsule, [facility]/pharmacy #[id number], Partial fill upon patient request [...] 9:41:00 AM EST, Route to Pharmacy Electronically, [facility]/pharmacy #[id number], Partial fill upon patient request [...] 4:07:00 PM EST, Route to Pharmacy Electronically, [facility]/pharmacy #[id number], Partial fill upon patient requestif [...] Refills, Maintenance, 06/06/24 4:07:00 PM EST, Suspension, [facility]/pharmacy #[id number], Partial fill upon patient request if [...] Refills, Maintenance, 06/06/24 4:07:00 PM EST, Tablet, [facility]/pharmacy #[id number], Partial fill upon patient request [...] Team Personnel Name: Fozia Alvarado RN Position: [facility] RN Member Role: Primary Care Nurse Name: Jeferson Chapman RN Position: [facility] RN Member Role: Primary Care Nurse Name: Vineet Lott Position: [facility] PCO Associate Professional Member Role: PCP Address: [address] [place] [address]- Telecom: Name: Courtney Mahmood RN Position: [facility] SN RN Member Role: Primary Care Nurse Name: Iqra Urbina RN Position: [facility] RN Member Role: Primary Care Nurse Name: Dada Hernandez RN Position: [facility] RN Member Role: Primary Care Nurse Name: Rachel Grant RN Position: [facility] RN Member Role: Primary Care Nurse Name: Maida Weinstein RN Position: [facility] RN Member Role: Primary Care Nurse Care Team Related Persons Name: SHARONDA JONAS Name: GISELLE FLORENTINO Insurance Providers Guarantor name: ARSEN JONAS Health Plan Information #: 1 Payer: NA Member Number: [id number] Policy Number: NA Group Number: [id number] Health Plan Information #: 2 Payer: NA Member Number: [id number] Policy Number: NA Group Number: NA
--- OUTSIDE RECORDS SUMMARY | 2024-07-28 15:50 | XMS_ITS | Clinical Summary ---
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 Active amLODIPine (NORVASC) 10 mg tablet Take 1 tablet (10 mg total) by mouth 1 (one) time each day. 4 Active aspirin 81 mg EC tablet Take 1 tablet (81 mg total) by mouth 1 (one) time each day. 2 Active celecoxib (CeleBREX) 200 mg capsule Take 200 mg by mouth daily. 2 Active cholecalciferol (VITAMIN D-3) 50 mcg (2,000 unit) capsule Take 1 capsule (2,000 Units total) by mouth 1 (one) time each day. 2 Active diclofenac (Voltaren Arthritis Pain) 1 % topical gel Place onto the skin. Active fluticasone propionate (FLONASE) 50 mcg/actuation nasal spray INHALE 2 SPRAYS BY NASAL ROUTE DAILY FOR 30 DAYS 2 Active gabapentin (NEURONTIN) 300 mg capsule TAKE 1 CAPSULE BY MOUTH DAILY NEEDED FOR BACK PAIN 4 Active hydroCHLOROthiaz jed (MICROZIDE) 12.5 mg capsule TAKE 1 CAPSULE BY MOUTH EVERY DAY IN THE MORNING 4 Active isosorbide mononitrate (IMDUR) 30 mg 24 hr tablet Take 3 tablets (90 mg total) by mouth 1 (one) time each day. 4 Active menthol-zinc oxide (Calmoseptine) 0.44-20.6 % ointment Apply 1 Each topically 4 times daily. 3 Active metoprolol succinate (TOPROL-XL) 50 mg 24 hr tablet Take 1 tablet (50 mg total) by mouth 1 (one) time each day. 4 Active nitroglycerin (NITROSTAT) 0.[address] 1 Tablet under the tongue every 5 minutes as needed for Chest pain. 3 Active omeprazole (PriLOSEC) [address] capsule Take 1 capsule (40 mg total) by mouth 1 (one) time each day. 4 Active rosuvastatin (CRESTOR) 20 mg tablet Take 1 tablet (20 mg total) by mouth 1 (one) time each day. 4 Active multivitamin/iro n/folic acid (CENTRUM ORAL) Take by mouth daily. Active Active Problems Problem Noted Date Diagnosed Date Premature atrial contraction 08/01/2021 Overview (01/23/2024): Premature atrial contraction Supraventricular tachycardia 08/01/2021 Overview (01/23/2024): Supraventricular tachycardia Ventricular premature beats 08/01/2021 Overview (01/23/2024): Ventricular premature beats BPH (benign prostatic hyperplasia) 12/07/2020 Erectile dysfunction 12/07/2020 Overview (01/23/2024): On NitroStat so sildenafil et al contraindicated Mild obstructive sleep apnea 04/04/2019 Overview (01/23/2024): [facility] Home Sleep Apnea Test: Date 03/26/2019; Wt 190#; BMI 28; ZEN 14, AI 6; HI 8; Unclassified apneas 0; Obstructive apneas 46; Central apneas 0; Mixed apneas 0; hypopneas 57; average oxygen saturation 91% (lowest 78% with saturations <88% for 5% or more of study) - Obstructive Sleep Apnea - mild; mostly hypopneas and obstructive apneas; with sleep related hypoventilation by 2018 home sleep apnea test. 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 Suárez, repeat ultrasound due 02/2015 Immunizations Name Administration Dates Next Due Influenza Quadravalent, MDCK , 0.5ml, preservative free (Flucelvax) 6mo and older 12/26/2023 Influenza Quadravalent, MDCK , 0.5ml, with preservative (Flucelvax) 6mo and older 03/23/2023,01/27/2022,02/01/2021 Influenza trivalent, 0.5mL ( Fluzone High-dose) 65yo and older 02/05/2020,02/06/2018,01/14/2016,01/13,02/23/2014,02/18/2013,01/22/2012 Influenza trivalent, with pr eservative (Fluzone; Afluria) 6mo and older 01/28/2019 Influenza, Unspecified 04/23/2023 Moderna SARS-CoV-2 COVID-19, mRNA, LNP-S, preservative free 12/26/2023,01/09/2022,08/25/2021 Pneumococcal conjugate 13 va lent (Prevnar 13, PCV13) 2mo and older 01/13/2015 Pneumococcal polysaccharide 23 valent (Pneumovax 23) 2yo and older 05/09/2012 Td Tetanus diptheria (Tdvax) 7yo and older 09/03/2017,03/09/2009 Surgical History Surgery Date Site/Laterality Comments CHOLECYSTECTOMY 08/11/2010 PROCEDURE: HISTORICAL CHOLECYSTECTOMY; COMMENT: adenomyoma gall bladder HERNIA REPAIR PROCEDURE: HISTORICAL HERNIA REPAIR/UMB COLONOSCOPY 12/01/2008 PROCEDURE: HISTORICAL COLONOSCOPY; COMMENT: diverticuli, hemorrhoids, no polyps, Dr Gilmore SHOULDER SURGERY PROCEDURE: HISTORICAL SHOULDER SURGERY; COMMENT: bilateral HAND SURGERY PROCEDURE: HISTORICAL HAND SURGERY; COMMENT: surgery on both hands at [facility] jt of thumbs bilaterally. KNEE SURGERY 04/18/2011 PROCEDURE: HISTORICAL KNEE SURGERY; COMMENT: right medial meniscal debridement, arthroscopic, Dr Reyez COLONOSCOPY 03/12/2014 PROCEDURE: HISTORICAL COLONOSCOPY; COMMENT: diverticuli, hemorrhoids CARDIAC CATHETERIZATION 05/08/2014 PROCEDURE: HISTORICAL CARDIAC CATH; COMMENT: 80% LAD, 90% distal LAD, 70% RCA, 2 JG placed mid and distal LAD CARDIAC CATHETERIZATION 06/01/2014 PROCEDURE: HISTORICAL CARDIAC CATH; COMMENT: patent stents CATARACT EXTRACTION 05/25/2016 PROCEDURE: HISTORICAL CATARACT REMOVAL KNEE SURGERY 07/2016 PROCEDURE: HISTORICAL KNEE SURGERY; COMMENT: subchondroplasty TOTAL KNEE ARTHROPLASTY Bilateral PROCEDURE: HISTORICAL TOTAL KNEE REPLACE CARDIAC CATHETERIZATION 05/07/2019 PROCEDURE: HISTORICAL CARDIAC CATH; COMMENT: Moderate diffuse 3B CAD with minimal change compared to 05/2014, modest worsening of mid LAD disease. Mid and distal LAD stents widely patent. CHOLECYSTECTOMY PROCEDURE: [place] LAPAROSCOPY SURG CHOLECYSTECTOMY BACK SURGERY 05/31/2023 PROCEDURE: HISTORICAL BACK SURGERY; COMMENT: L4-5 laminotomy, facetectomy, foraminotomy Medical History Medical History Date Comments Renal cyst 05/09/2012 DX:Renal cyst; C OMMENT: Right complex on MRI suggestive of complex cyst, sees Dr. Suárez, repeat ultrasound due 02/2015 Osteoarthritis 05/09/2012 DX:Osteoarthriti s Hypertension 05/09/2012 DX:Hypertension Hyperlipemia 05/09/2012 DX:Hyperlipemia History of herpes zoster 09/06/2012 DX:Hist ory of herpes zoster Hemorrhoids 05/09/2012 DX:Hemorrhoids; COMMENT: Incidental finding on colonoscopy Diverticulosis 05/09/2012 DX:Diverticulosi s; COMMENT: Seen on colonoscopy and CT scan CAD (coronary artery disease) 05/14/2014 DX :CAD (coronary artery disease); COMMENT: LAD stent Apr 2014 BPH (benign prostatic hyperplasia) 12/07/2020 DX:BPH (benign prostatic hyperplasia) Erectile dysfunction 12/07/2020 DX:Erectile dysfunction; COMMENT: On NitroStat so sildenafil et al contraindicated History of knee replacement, total, bilateral 12/07/2020 DX:History of knee replaceme nt, total, bilateral Family History Medical History Relation Name Comments Hypertension Aunt uncle Colon cancer Mother 63 Colon cancer Paternal Grandfather Relation Name Status Comments Aunt Mother Paternal Grandfather Social History Tobacco Use Types Packs/Day Years Used Date Smoking Tobacco: Never Smokeless Tobacco: Never Alcohol Use Standard Drinks/Week Comments Not Currently 0 (1 standard drink = 0.6 oz pur e alcohol) Sex and Gender Information Value Date Recorded Sex Assigned at Not on file Legal Sex Male 12:47 PM EST Gender Identity Not on file Sexual Orientation Not on file Obstetrics History Last Filed Vital Signs Vital Sign Reading Time Taken Comments Blood Pressure 120/78 08/31/2023 8:59 AM EDT Pulse 64 08/31/2023 8:59 AM EDT Temperature - - Respiratory Rate - - Oxygen Saturation - - Inhaled Oxygen Concentration - - Weight 87.3 kg (192 lb 6.4 oz) 08/31/2023 8:59 A M EDT Height 175.3 cm (5' 9 ) 08/31/2023 8:59 AM EDT Body Mass Index 28.41 08/31/2023 8:59 AM EDT Plan of Treatment Health Maintenance Due Date Last Done Comments Zoster Vaccines (1 of 2) 1997 Depression Screening 04/01/2022 Falls Risk Assessment 04/01/2022 Social Influencers of Health Screening 04/01/2022 RSV Immunization Adult Patients (1 - 1-dose 75+ series) 2022 Hypertension/CHF/CAD Annual BMP Blood Test 12/08/2023 12/07/2022 COVID-19 Vaccine ( season) 2024 12/26/2023, 03/23/2023, 01/09/2022, Additional history exists DTaP,Tdap,and Td Vaccines (3 - Td or Tdap) 09/04/2027 09/03/2017, 03/09/2009 Cholesterol Screening (Lipid Panel) 01/20/2028 01/19/2023 Colorectal Cancer Screening: Colonoscopy 03/14/2029 03/14/2019 Hepatitis C Screening Completed 06/12/2012 Pneumococcal Vaccine: 50+ Years Completed 01/13/2015, 05/09/2012 Influenza Vaccine Completed 12/26/2023, , 03/23/2023, Additional history exists HIB Vaccines Aged Out No longer eligi ble based on patient's age to complete this topic HPV Vaccines Aged Out No longer eligi ble based on patient's age to complete this topic Hepatitis A Vaccines Aged Out No long er eligible based on patient's age to complete this topic Hepatitis B Vaccines Aged Out No long er eligible based on patient's age to complete this topic IPV Vaccines Aged Out No longer eligi ble based on patient's age to complete this topic MMR Vaccines Aged Out No longer eligi ble based on patient's age to complete this topic Meningococcal ACWY Vaccine Aged Out N o longer eligible based on patient's age to complete this topic Meningococcal B Vaccine Aged Out No l onger eligible based on patient's age to complete this topic RSV Immunization Patients Under 20 months Aged Out No longer eligible based on patient's age to complete this topic Varicella Vaccines Aged Out No longer eligible based on patient's age to complete this topic Procedures Procedure Name Priority Date/Time Associated Diagnosis Comments LIPID PANEL Routine 01/19/2023 ANNUAL BMP BLOOD TEST Routine 12/07/2022 COLONOSCOPY Routine 03/14/2019 HEPATITIS C SCREENING Routine 06/12/2012 from Last 3 Months or Most Recently Relevant to Health Maintenance Results * Lipid panel (01/19/2023) LDL/HDL Ratio 2 0 - 4 Triglycerides 63 0 - 150 mg/dL Cholesterol 106 0 - 200 mg/dL HDL 48 >=40 mg/dL LDL Cholesterol 46 0 - 100 mg/dL Blood Venous blood specimen / Unknown Historical Provider LAB BLOOD ORDERABLES Oumou l Result * Annual BMP Blood Test (12/07/2022) [facility] Annual BMP Blood Test abstracted [facility] Provider HEALTH MAINTENANCE Final Result * Colonoscopy (03/14/2019) [facility] Colonoscopy no interpreta tion,abstr acted Anatomical Region Laterality Modality Other [facility] Provider HEALTH MAINTENANCE Final Result * Hepatitis C Screening (06/12/2012) [facility] Hepatitis C Screening abstracted Result [facility] Provider HEALTH MAINTENANCE Final Result from Last 3 Months or Most Recently Relevant to Health Maintenance 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
--- OUTSIDE RECORDS SUMMARY | 2024-07-28 15:50 | XMS_ITS | Data Portability ---
Author Organization [place] [facility] [address] Address [address] [facility] [place] [address] Assessment No assessment recorded. Plan of Treatment Reminders Order Date Submit Date Provider Last Modified By Organization Details Last Modified Time Details Appointments None recorded. Lab None recorded. Referral None recorded. Procedures None recorded. Surgeries None recorded. Imaging XR, chest, 2 view - cough for over 10 days .purulent sputum 2022 023 dovares Not available 3 19:50:48 XR, thumb - right thumb, contusion to hand 1 week ago 2022 023 VIKA Not available 15:20:46 Medication Orders doxycycline monohydrate 100 mg capsule 2022 023 [facility] #[id number], [address] [place], [place], [phone], 3 03:30:55 benzonatate 200 mg capsule 2022 023 [facility] #[id number], [address] [place], [place], [phone], 3 03:30:55 Patient TargetsNo targets recorded. Patient [...] Details Recorded Time Pain in right hand [id number] 9 Active 2022 Dinesh Marsh MD [address] [place] [address], [phone], [address] 3 10:40:54 Contusion of right hand [id number] 108 Active 2022 Dinesh Marsh MD [address] [place] [address], [phone], [address] 3 11:59:05 Problem Notes None recorded. Procedures Surgical History Date Name Laterality Status Provider Name and Address Organization Details Recorded Time total replacement of left knee joint completed Heena Mangin, MEDICAL LAB SCIENTIST [address] 05/04/2022 10:32:58 total replacement of right knee joint completed Heena Mangin, MEDICAL LAB SCIENTIST [address] 05/04/2022 10:33:12 Stent completed Heena Mangin, MEDICAL LAB SCIENTIST [address] 05/04/2022 10:34:09 Imaging Results Imaging Date Name Status LastModified by Organiz ation Details LastModified Time 05/04/2022 XR, thumb completed BARCODE Information no t available 05/04/2022 15:20:46 Procedure Notes None recorded. Medical Equipment None Reported. Allergies Allergen ID Allergen Name Allergen Category Reaction Reaction Severity Criticality Documentation Date Start Date Code Code System Note Provider Name and Address Organization Details Recorded Time 866822 Substance with sulfonami de structure and antibacte rial mechanism of action (substanc e) medicatio n Not available Not available Not available 05/04/2022 79389 8003 SNOMED Heena Mangin, MEDICAL LAB SCIENTIST null, [address] 10:22:55 062106 Product containin g penicilli n (product) medicatio n Not available Not available Not available 05/04/2022 87738 8001 SNOMED Heena Mangin, MEDICAL LAB SCIENTIST null, [address] 10:23:19 869058 shellfish derived food,medi cation Not available Not available Not available 05/04/2022 70253 UNK Heena Rawls LPN null, [place] [facility] [place] 3 10:23:29 Medications Name Sig Start Date [...] saturation in Arterial blood by Pulse oximetry Pain severity - 0-10 verbal numeric rating [Score] - Reported Systolic blood pressure Diastolic blood pressure Provider Name and Address Organization Details Last Updated DateTime 3 77299.8 1 g 26.9 kg/m2 175.26 cm 98.2 [degF] 56 /min 16 /min 97 % 97 % 5 131 mm[Hg] 75 mm[Hg] Heena Rawls LPN [place] [facility] [place] 3 10:21:51 Date Recorded Body height Body temperature Heart rate Respiratory rate Oxygen saturation Oxygen saturation in Arterial blood by Pulse oximetry Systolic blood pressure Diastolic blood pressure Provider Name and Address Organization Details Last Updated DateTime 3 175.26 cm 99.3 [degF] 61 /min 16 /min 95 % 95 % 130 mm[Hg] 77 mm[Hg] Judy Crandall RN [place] [facility] [place] 3 16:35:08 Social History Question Answer Notes LastModified by Organizat ion Details LastModified Time Tobacco Smoking Status Never Smoker Heena BANDAR Rawls [facility], [facility] [place] 05/04/2022 10:32:20 What Is Your Level Of [...] SNOMED-CT Code Diagnosis ICD10 Code Diagnosis Note [id number] Dinesh Madrid MD [facility] PCP [address] [place] [address] 05/04/2022 10:07:19 05/04/2022 12:15:03 Pain in right hand [id number] 82112 M79.641 Contusion of right hand [id number] S60.221A Xray shows no fracture, soft tissue swelling appreciate d.Advised ice packs/heat packs prnTylenol or simialr prn for pain. [id number] Robyn curran MD [facility] [address] [address] 05/23/2022 16:03:26 05/23/2022 17:13:55 Productive cough-yellow sputum [id number] R09.3 Cough with purulent sputum for over [...] Levin Member ID Guarantor Name 05/04/2022 1 [place]MEDICARE [place]PLACEMENT PPO) [id number] Abiodun Colunga [id number] Abiodun Rodriguez Cristine 05/23/2022 1 [place] (MEDICARE [place]PLACEMENT PPO) [id number] Abiodun Colunga [id number] Abiodun Michael Mingabdoul Notes Date Note Type Note Provider Name [...] (joint fusion of thumb) Dinesh remy MD [address] [place] [address], [phone], [address] 05/04/2022 12:01:43 05/23/2022 text/html Upper Respirator y SymptomsReported bypatient.Location:[facility]; head Severity:mild Duration:9 days Onset/Timing:gradual Context:non-smoker [...] and did not help Robyn Reyes MD [address] [facility], [place], [address], [facility] [place] 05/23/2022 17:15:39
--- OUTSIDE RECORDS SUMMARY | 2024-07-28 15:50 | XMS_ITS | Clinical Summary ---
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 Role Phone Unavailable Primary Care Provider Unavailabl e Social History Tobacco Use Types Packs/Day Years Used Date Smoking Tobacco: Never Assessed Sex and Gender Information Value Date Recorded Sex Assigned at Not on file Gender Identity Not on file Sexual Orientation Not on file Plan of Treatment Health Maintenance Due Date Last Done Comments Hepatitis C Virus Screening 1945 DTaP/Tdap/Td Vaccines (1 - Tdap) 1966 Pneumococcal Vaccines 50+ (1 of 1 - PCV) 1997 Zoster (Shingles) Vaccine (1 of 2) 1997 RSV Vaccine 60 years and old er and Patients (1 - 1-dose 75+ series) 2022 COVID-19 Vaccine ( - 2023-2 5 season) 2023 Hepatitis B Vaccines Aged Out No long er eligible based on patient's age to complete this topic
== END 2024-07-28 13:44 | disposition home or self-care (01) ==
LOC: HO.HNS 13:21
PROVIDERS: PCP Physician Assistant; Visit Provider Physician Assistant
DX: M54.16 Radiculopathy, lumbar region (principal)
CPT/HCPCS: 99212

== ENCOUNTER → 2024-07-28 13:20 | Outpatient (BNVA) | payer MEDICARE, SELFPAY | PROVIDERS: PCP Physician Assistant; Visit Provider Physician Assistant | DX: M54.16 Radiculopathy, lumbar region (principal) | CPT/HCPCS: 99212 ==

== ENCOUNTER → 2024-09-21 16:55 | Outpatient (BNV) | payer MEDICARE, SELFPAY | PROVIDERS: Visit Provider Radiology Diagnostic Radiology | DX: M48.061 Spinal stenosis, lumbar region without neurogenic claudication (principal); M54.16 Radiculopathy, lumbar region | CPT/HCPCS: 72158 ==

== ENCOUNTER 2024-09-21 16:56 | Outpatient (REF) | payer MEDICARE, SELFPAY ==
--- NOTE | ~2024-09-21 | MR_ITS ---
EXAMINATION: MR LUMBAR SPINE WITHOUT AND WITH CONTRAST CLINICAL INFORMATION: Lumbar radiculopathy , left leg weakness, numbness, and pain, prior back surgery L4-28 May 2023 COMPARISON: X-ray March 07, 2024 MRI February 20, 2024 TECHNIQUE: MRI of the lumbar spine was obtained using routine sequences with and without contrast. Intravenous contrast: Magnevist 8.5 mL FINDINGS: 5 non-rib bearing lumbar segments are evident on x-ray. Marrow: There is a circumscribed lesion in the posterior right L1 vertebral body 5 mm in diameter that is not well-demonstrated on T1 imaging and circumscribed with high signal on fluid sensitive sequences with enhancement. It measured 5 mm in the prior study as well. Vertebral body hemangiomas are present, L2 greater than L3. Superior endplate Schmorl's node is present at T12. Lower L1 demonstrates Modic 2 signal changes. L4-5 demonstrates Modic 1 endplate changes. There is stable signal change in the right pedicle of L5 with decreasing on T1 imaging and increased signal lucency sequences. Bilateral simple renal cysts are again noted, right greater than left. The termination of conus medullaris is within normal limits at the level of T12-L1. Without Contrast: T12-L1: There is subtle disc bulge without spinal stenosis or foraminal narrowing. Stable. L1-2: There is mild disc desiccation and broad-based disc bulge without spinal stenosis or foraminal narrowing. Stable. L2-3: There is disc desiccation and broad-based disc bulge. There is ligamentum flavum thickening. There is trace fluid in the facet joints and facet osteophytes. There is mild spinal stenosis and mild left subarticular zone narrowing. There is mild left foraminal narrowing, similar to the prior. There is no right-sided narrowing. L3-L4: There is diffuse disc asymmetric broad-based disc bulge with moderate ligament flavum thickening and facet osteophytes with trace left facet joint fluid. There is prominent posterior epidural fat. This results in moderate spinal stenosis and [id number] bilateral foraminal narrowing, similar to the prior. L4-L5: Laminectomy has been performed. There is subtle anterolisthesis. There is mild to moderate loss of disc height. There is a broad-based disc bulge. Again noted is a broad posterior disc extrusion through the central and left foraminal region. There is moderate severe facet arthropathy with hypertrophic changes and trace facet fluid, decreased on the left since prior. There is moderate spinal stenosis, greater in the left subarticular zone. There is moderate right and severe left foraminal narrowing similar to the prior. L5-S1: Mild broad-based disc bulge contacts the thecal sac and minimally narrows the left greater than right lateral recesses similar to the prior. There is moderate facet arthropathy with hypertrophic changes and trace fluid in the right facet joint. There is no spinal stenosis. There is moderate right and mild left foraminal narrowing With Contrast: L4-L5: Enhancing surgical tract is present posterior to the L4-5. There is persistent epidural enhancement. There is an enhancing complex synovial cyst protruding into the left epidural space measuring 6 x 10 mm (transverse by AP) MR/MR lumbar spine wo/w con IMPRESSION: L4-5 demonstrates postsurgical changes and broad-based disc bulge and central and left foraminal disc herniation and moderate size left synovial cyst extending into the epidural space resulting in moderate spinal stenosis and severe left foraminal narrowing with encroachment of the left L4 nerve root. There is moderate right foraminal narrowing. Stable L5-S1: There is moderate right and mild left foraminal narrowing. L1: There is an indeterminate lesion in the posterior right vertebral body of L1 enhances. It was not as well demonstrated on the prior study was evident and not grossly changed. If the patient has a history of malignancy the lesion is suspicious. The lesion hyper enhances and has different characteristics than the described vertebral hemangiomas. Consider CT to evaluate for a lytic or sclerotic lesion through the thoracolumbar junction without contrast. Electronically signed by: Luis Hussein MD 09/22/2024 05:29 PM EDT
[2024-09-21] MEDS: gadobutroL 10 ML VIAL IVPUSH (17:51)
== END 2024-09-21 16:57 | disposition home or self-care (01) ==
LOC: HO.MRI 16:56
PROVIDERS: Visit Provider Physician Assistant
DX: M54.16 Radiculopathy, lumbar region (principal)
CPT/HCPCS: 72158; A9585

== ENCOUNTER 2024-09-24 15:20 | Outpatient (REF) | payer MEDICARE, SELFPAY ==
--- OUTSIDE RECORDS SUMMARY | 2024-09-24 15:32 | XMS_ITS | Data Portability ---
Author Organization [place] [facility] [address] [place] [address] Assessment No assessment recorded. Plan of Treatment [...] 2022 023 VIKA Not available 3 15:20:46 Medication Orders doxycycline monohydrate 100 mg capsule 2022 023 [facility]/Pharmacy #[id number], [address] [place], [place], [id number], 3 03:30:55 benzonatate 200 mg capsule 2022 023 [facility]/Pharmacy #[id number], [address] [place], [place], [phone], 3 03:30:55 Patient TargetsNo targets recorded. Patient [...] Details Recorded Time Pain in right hand 45094570740728 9 Active 2022 Dinesh Marsh MD [address] [place] [address], [phone], [address] 3 10:40:54 Contusion of right hand 05860962237533 108 Active 2022 Dinesh Marsh MD [address] [place] [address], [phone], [address] 3 11:59:05 Problem Notes None recorded. Procedures Surgical History Date Name Laterality Status Provider Name and Address Organization Details Recorded Time total replacement of left knee joint completed Heena Mangin, [employer] [address] 05/04/2022 10:32:58 total replacement of right knee joint completed Heena Mangin, [employer] [address] 05/04/2022 10:33:12 Stent completed Heena Mangin, [employer] [address] 05/04/2022 10:34:09 Imaging Results None recorded. Procedure Notes None recorded. Medical Equipment None Reported. Allergies Allergen ID Allergen Name Allergen Category Reaction Reaction Severity Criticality Documentation Date Start Date Code Code System Note Provider Name and Address Organization Details Recorded Time 790022 Substance with sulfonami de structure and antibacte rial mechanism of action (substanc e) medicatio n Not available Not available Not available 05/04/2022 93403 8003 SNOMED Heena Mangin [employer] null, [facility] [place] 3 10:22:55 683024 Product containin g penicilli n (product) medicatio n Not available Not available Not available 05/04/2022 96238 8001 SNOMED Heena Mangin, [employer] null, [facility] [place] 3 10:23:19 703904 shellfish derived food,medi cation Not available Not available Not available 05/04/2022 79543 UNK Heena Mangin [employer] null, [facility] [place] 3 10:23:29 Medications Name Sig Start Date [...] Address Organization Details Last Updated DateTime 3 11082.8 1 g 26.9 kg/m2 175.26 cm 98.2 [degF] 56 /min 16 /min 97 % 97 % 131 mm[Hg] 75 mm[Hg] Heena Rawls LPN [address] 3 10:21:51 Date Recorded Body height Body temperature Heart rate Respiratory rate Oxygen saturation Oxygen saturation in Arterial blood by Pulse oximetry Systolic blood pressure Diastolic blood pressure Provider Name and Address Organization Details Last Updated DateTime 3 175.26 cm 99.3 [degF] 61 /min 16 /min 95 % 95 % 130 mm[Hg] 77 mm[Hg] Judy Crandall RN [address] 16:35:08 Social History Question Answer Notes LastModified by Organizat ion Details LastModified Time Tobacco Smoking Status Never Smoker Heena Rawls LPN [facility], [address] 05/04/2022 10:32:20 What Is Your Level Of Caffeine Consumption? Moderate Information not available 05/04/2022 What Was The Date Of Your Most Recent Tobacco Screening? 05/04/2022 Information not available 05/04/2022 Sex: Unknown Functional Status Question Answer Note LastModified by Organization D etails LastModified Time What is your level of alcohol consumption? None Information not available 05/04/2022 Mental Status None recorded. Family History Relationship Description Onset Age of this Age Resolved Age Notes LastModified by Organization Details LastModified Time Father Congestive heart failure 89 [email or web address] Not available 2022 10:31:53 Medical History No medical history recorded. Past Encounters Encounter ID Performer Location Encounter Start Date Encounter Closed Date Diagnosis/Indication Diagnosis SNOMED-CT Code Diagnosis ICD10 Code Diagnosis Note [id number] Dinesh Madrid MD [facility] PCP [address] [facility] [place] [address] 05/04/2022 10:07:19 05/04/2022 12:15:03 Pain in right hand 9156515745 04673 M79.641 Contusion of right hand [id number] 3781702 S60.221A Xray shows no fracture, soft tissue swelling appreciate d.Advised ice packs/heat packs prnTylenol or simialr prn for pain. [id number] Robyn curran MD [facility] [address] [facility] [address] [address] 05/23/2022 16:03:26 05/23/2022 17:13:55 Productive cough-yellow sputum 889678535 R09.3 Cough with purulent sputum for over [...] Concerns Section Related Observation LastModified by Organization Roger butler LastModified Time None Recorded Concern Status LastModified by Organization Details LastModified Time None Recorded Advance Directives Directive None Recorded Payers Insurance Date Sequence Insurance Name Policy Number Policy Levin Covered Member ID Levin Member ID Guarantor Name 05/23/2022 1 [place]UE (MEDICARE REPLACEMENT PPO) [id number] Abiodun Colunga [id number] Abiodun Michael Cristine Notes Date Note Type Note Provider Name [...] (joint fusion of thumb) Dinesh remy MD [address] [place] [address], [phone], [address] 05/04/2022 12:01:43 05/23/2022 text/html Upper Respirator y SymptomsReported bypatient.Location:[facility] st; head Severity:mild Duration:9 days Onset/Timing:gradual [...] and did not help Robyn Reyes MD [address] [place] [address], [phone], [address] 05/23/2022 17:15:39
== END 2024-09-24 15:21 | disposition home or self-care (01) ==
LOC: HO.HOSX 15:20
PROVIDERS: Visit Provider Physician Assistant
DX: Z13.89 Encounter for screening for other disorder (principal)

== ENCOUNTER 2024-09-25 08:46 | Outpatient (REF) | payer MEDICARE, SELFPAY ==
--- NOTE | ~2024-09-25 | XR_ITS ---
CLINICAL HISTORY: M54.50 - Low back pain, unspecified Four views of the lumbar spine. COMPARISON: MR lumbar spine dated 09/21/24 at 17:17 EDT FINDINGS: Flexion and extension imaging was performed. Five [id number] lumbar type vertebral bodies. Mild rightward curvature of the lower lumbar spine. Grade 1 anterolisthesis of L4 on L5. No pars defects identified. This appears stable in flexion and extension imaging. Vertebral body heights are maintained. No evidence of acute vertebral body injury. Loss of disc space height at L4-5 and L5-S1. Facet joint arthrosis in the lower lumbar spine with neural foraminal narrowing most pronounced at L5-S1. Marginal osteophytes present throughout the visualized lower thoracic and lumbar spine. Visualized portions of the bones of the pelvis appear intact. Atherosclerotic thoracic aorta. Pelvic phleboliths present. IMPRESSION: 1. No radiographic evidence of acute injury to the lumbar spine. 2. Grade 1 anterolisthesis of L4 on L5, stable on flexion and extension imaging. No pars defects identified. 3. Moderate to advanced mid to lower lumbar spondylosis. This document has been electronically signed by: Raman Boswell MD on 09/25/2024 15:10:29
== END 2024-09-25 08:47 | disposition home or self-care (01) ==
LOC: HO.HOSX 08:46
PROVIDERS: Visit Provider Physician Assistant
DX: M54.50 Low back pain, unspecified (principal)
CPT/HCPCS: 72110; 99212

== ENCOUNTER 2024-09-25 08:46 | Outpatient (AMB) | payer MEDICARE, SELFPAY ==
--- NOTE | 2024-09-25 08:57 | HO.SPINEOV ---
Intake Visit Reasons: MRI f/up Intake Note: Mr. Colunga is here today to F/u on the results to his MRI. Unstacker Required: No Allergies Penicillins Allergy (Verified 09/25/24 08:57) Unknown shellfish derived Allergy (Verified 09/25/24 08:57) Unknown Sulfa (Sulfonamide Antibiotics) Allergy (Verified 09/25/24 08:57) Unknown Assessment & Plan Assessment & Plan (1) Lumbago: Code(s): M54.50 - Low back pain, unspecified Category: Medical Plan Abiodun is a pleasant 79 year old male who comes in today for subsequent follow up after having his MRI completed. He reports that he continues to have severe low back pain and shooting pain across his low back and down his left posterior buttocks into the left lateral thigh. He states that this is becoming quite severe, and is so bad that it is keeping him up at night. He has to sleep in a recliner just to get a few hours of sleep. We reviewed his MRI imaging during this visit which shows modic endplate changes of L4-5, and severe disc degeneration at this level. He has severe bilateral foraminal stenosis likely secondary to a posterior disc bulge and grade 1 spondylolithesis seen at this level. We also had him obtain a set of X-rays during this visit which demonstrates a worsening lithesis at L4-5. His images were reviewed by the attending Neurosurgeon Dr. Guevara who offered the patient L4-5 OLIF. We extensively discussed this procedure during this encounter utilizing the spine models in office. I answered all of his questions related to the procedure to the best of my ability. The patient was given risk and benefits of surgery including but not limited to infection, hematoma, nerve injury, durotomy, weakness, bowel/bladder injury, persistent pain, and pseudoarthosis or instrumentation failure if they are undergoing lumbar fusion. In addition to this for males undergoing anterior lumbar fusion there is a low risk of retrograde ejaculation. We also discussed the option to continue with conservative treatment and patient wishes to proceed with surgery. They are aware they should stop NSAIDs 7 days prior to surgery. All questions were answered to the best of our ability. If there is anything about this patients medical history that we have overlooked or concerns you have about us proceeding with surgery we would appreciate any input you can offer. Abiodun feels his symptoms are quite severe at this time and asked to be placed on our cancellation list for surgery, as he would like surgery as soon as possible. He is tentatively booked for 11/04/24. Perez Guevara MD,PhD [facility] Coding Level of Care Code Global (30305) Diagnoses Lumbago M54.50
== END 2024-09-25 09:50 | disposition home or self-care (01) ==
LOC: HO.HNS 08:47
PROVIDERS: Visit Provider Physician Assistant
DX: M54.50 Low back pain, unspecified (principal)
CPT/HCPCS: 99214

== ENCOUNTER → 2024-09-25 08:56 | Outpatient (BNV) | payer MEDICARE, SELFPAY | PROVIDERS: Visit Provider Radiology Diagnostic Radiology | DX: M47.816 Spondylosis without myelopathy or radiculopathy, lumbar region (principal) | CPT/HCPCS: 72110 ==

== ENCOUNTER → 2024-09-30 14:03 | Outpatient (BNV) | payer MEDICARE, SELFPAY | PROVIDERS: Absent Provider Physician Assistant; Admitting Provider Physician Assistant; Visit Provider Internal Medicine Cardiovascular Disease | DX: I45.10 Unspecified right bundle-branch block (principal); R00.1 Bradycardia, unspecified | CPT/HCPCS: 93010 ==

== ENCOUNTER → 2024-10-01 07:30 | Outpatient (BNV) | payer MEDICARE, SELFPAY | PROVIDERS: Admitting Provider Neurological Surgery; Visit Provider Neurological Surgery | DX: M48.062 Spinal stenosis, lumbar region with neurogenic claudication (principal); M43.16 Spondylolisthesis, lumbar region | CPT/HCPCS: 20930; 22558; 22612; 22840; 22853; 99499 ==

== ENCOUNTER 2024-10-01 10:05 | Inpatient (IN) | payer MEDICARE, SELFPAY ==
--- NOTE | 2024-09-30 | ECG_ITS ---
Test Reason : preop Blood Pressure : */* mmHG Vent. Rate : 55 BPM Atrial Rate : 55 BPM P-R Int : 164 ms QRS Dur : 132 ms QT Int : 448 ms P-R-T Axes : 41 10 -2 degrees QTcB Int : 428 ms Sinus bradycardia Right bundle branch block Abnormal ECG When compared with ECG of 17-May-2023 13:07, No significant change was found Referred By: Bharti Nguyen Electronically Signed By: EDITH VAZQUEZ MD
[2024-09-30 13:11] VITALS: BP 107/60; PULSE 62; RESP 16; O2SAT 96; BMI 28.1
--- NOTE | 2024-09-30 13:34 | HO.ANESPROP2 ---
Documented by User: Bharti Nguyen NP 09/30/24 14:49 HPI - Anesthesia Eval Consult details Narrative: 79yo M for L4-5 Oblique Lumbar Interbody Fusion s/p L5 MicroLumbar discectomy,left L4-5 synoval Cyst removal 02/2024 s/p L4-5 Lumbar Decompression 05/2023 with GA-ETT 7.5 Follows [facility]. Last office visit 12/2022. Echo and Stress 01/2023 [place]. Chronic chest pain syndrome CAD s/p cath x 2. Stents x 2 2014. Gerd. Well controlled with ppi IVAN: Mild per PCP note, mild PMFSH Active Problems Active Problems: All Active Problems Lumbago (Acute) Lumbar radiculopathy (Acute) Lumbar disc herniation with radiculopathy (Acute) Synovial cyst of lumbar facet joint (Acute) Lumbar back pain with radiculopathy affecting left lower extremity (Acute) SI (sacroiliac) joint dysfunction (Acute) S/P spinal surgery (Acute) Lumbar stenosis with neurogenic claudication (Acute) Past Medical History Medical History IVAN (obstructive sleep apnea) GERD (gastroesophageal reflux disease) Back pain Renal cyst Osteoarthritis Diverticulosis BPH (benign prostatic hyperplasia) Numbness CAD (coronary artery disease) HTN (hypertension) Arthritis Family History Family history of problems with anesthesia: No Surgical History Surgical History History of spinal surgery (05/2023) History of spinal surgery (02/2024) Hx of shoulder surgery Hx of cataract extraction Hx of cardiac catheterization H/O colonoscopy Hx of hand surgery History of bilateral knee replacement Hx of hernia repair History of coronary artery stent placement Hx of cholecystectomy Hx of carpal tunnel repair History of Problems with Anesthesia: No Social History Social History Are you a primary home care specialist to a significant other at home: No Do you presently have visiting nurse or other home services: No Patient Tobacco Use Status: Never used Tobacco e-Cigarette/Vaping Use: Never Used Use of substances other than those prescribed or required for medical reasons: No Have you been hit, kicked, punched, or otherwise hurt by someone within the past year? If so, by whom?: No Are you DNR?: No Advance Directives: No Advance Directives Information Provided: Yes Advance Directives on File: No Poor oral hygiene: No Meds Allergies Allergy/AdvReac Type Severity Reaction Status Date / Time shellfish derived Allergy Severe Facial Verified 10/01/24 06:13 Swelling Penicillins Allergy Unknown Verified 10/01/24 06:13 Sulfa (Sulfonamide Allergy Unknown Verified 10/01/24 06:13 Antibiotics) Home Medications ?Medication ?Instructions ?Recorded ?Confirmed ?Last Taken ?Type acetaminophen 650 mg 650 mg PO DAILY PRN Pain 05/17/23 10/01/24 Unknown History tablet,extended release amlodipine 10 mg tablet 10 mg PO BEDTIME 05/17/23 10/01/24 10/01/24 05:00 History aspirin 81 mg tablet,delayed 81 mg PO BEDTIME 05/17/23 10/01/24 09/26/24 History release celecoxib 200 mg capsule 200 mg PO DAILY 05/17/23 10/01/24 09/26/24 History cholecalciferol (vitamin D3) 50 50 mcg PO DAILY 05/17/23 10/01/24 05/30/23 History mcg (2,000 unit) capsule (Vitamin D3) diclofenac sodium 1 % topical gel 2 g topical QID PRN Pain 05/17/23 10/01/24 Unknown History hydrochlorothiazide 12.5 mg capsule 25 mg PO QAM 05/17/23 10/01/24 05/30/23 History isosorbide mononitrate 30 mg 90 mg PO DAILY 05/17/23 10/01/24 05/31/23 History tablet,extended release 24 hr metoprolol succinate 50 mg 50 mg PO DAILY 05/17/23 10/01/24 10/01/24 05:00 History tablet,extended release 24 hr multivitamin 1 tab PO DAILY 05/17/23 10/01/24 05/30/23 History nitroglycerin 0.4 mg sublingual 0.4 mg sublingual DIRECTED 05/17/23 10/01/24 09/20/24 History tablet omeprazole 40 mg capsule,delayed 40 mg PO DAILY 05/17/23 10/01/24 05/31/23 History release rosuvastatin 20 mg tablet 20 mg PO BEDTIME 05/17/23 10/01/24 05/30/23 History pregabalin 75 mg capsule 75 mg PO BID 09/29/24 10/01/24 10/01/24 05:00 History Exam Height,Weight and Vital Signs: Height 5 ft 9 in Weight 86.183 kg Last Vital Signs Pulse 62 09/30/24 13:11 Resp 16 09/30/24 13:11 BP 107/60 09/30/24 13:11 Pulse Ox 96 09/30/24 13:11 O2 Del Method Room Air 09/30/24 13:11 Narrative Narrative: EKG 09/2024 Vent. Rate : 55 BPM Atrial Rate : 55 BPM P-R Int : 164 ms QRS Dur : 132 ms QT Int : 448 ms P-R-T Axes : 41 10 -2 degrees QTcB Int : 428 ms Sinus bradycardia Right bundle branch block Abnormal ECG When compared with ECG of 17-May-2023 13:07, No significant change was found ECHO 02/2023 With contrast Nml LV chamber size. Mild conc LVH. Nml RWM. Nml LV systolic function. LVEF 55-60%. Indeterminate LV diastolic function. Nml RV size and function. PASP could not be obstained. LA nml in size No hemodynamically significant valve disease Nuc stress 01/2023 Likely negative exercise stress with nuc imaging Nuc imaging revealed likely nml perfusion after attenuation correction was applied. A small, mild focus of apical inferior ischemia could not be excluded, however. Nml TID ratio RV function is nml Nml LV systolic fuction and RWM Airway Mallampati Class: III TM Dist: >3cm Neck ROM: Full Loose/Missing/Broken Teeth: Yes (molars pulled, 8&9 cerarmic) Heart: RRR Lungs: CTAB Assessment and Plan Assessment Anesthesia Assessment: Anesthesia Plan Discussed and PAT Visit Final Anesthetic Review Family History of Problems with Anesthesia: No History of Problems with Anesthesia: No Documented by User: Babs Potts MD 10/01/24 07:47 [facility] Past Medical History Medical History IVAN (obstructive sleep apnea) GERD (gastroesophageal reflux disease) Back pain Renal cyst Osteoarthritis Diverticulosis BPH (benign prostatic hyperplasia) Numbness CAD (coronary artery disease) HTN (hypertension) Arthritis Surgical History Surgical History History of spinal surgery (05/2023) History of spinal surgery (02/2024) Hx of shoulder surgery Hx of cataract extraction Hx of cardiac catheterization H/O colonoscopy Hx of hand surgery History of bilateral knee replacement Hx of hernia repair History of coronary artery stent placement Hx of cholecystectomy Hx of carpal tunnel repair Social History Social History Are you a primary home care specialist to a significant other at home: No Do you presently have visiting nurse or other home services: No Patient Tobacco Use Status: Never used Tobacco e-Cigarette/Vaping Use: Never Used Use of substances other than those prescribed or required for medical reasons: No Have you been hit, kicked, punched, or otherwise hurt by someone within the past year? If so, by whom?: No Are you DNR?: No Advance Directives: No Advance Directives Information Provided: Yes Advance Directives on File: No Poor oral hygiene: No Meds Allergies Allergy/AdvReac Type Severity Reaction Status Date / Time shellfish derived Allergy Severe Facial Verified 10/01/24 06:13 Swelling Penicillins Allergy Unknown Verified 10/01/24 06:13 Sulfa (Sulfonamide Allergy Unknown Verified 10/01/24 06:13 Antibiotics) Home Medications ?Medication ?Instructions ?Recorded ?Confirmed ?Last Taken ?Type acetaminophen 650 mg 650 mg PO DAILY PRN Pain 05/17/23 10/01/24 Unknown History tablet,extended release amlodipine 10 mg tablet 10 mg PO BEDTIME 05/17/23 10/01/24 10/01/24 05:00 History aspirin 81 mg tablet,delayed 81 mg PO BEDTIME 05/17/23 10/01/24 09/26/24 History release celecoxib 200 mg capsule 200 mg PO DAILY 05/17/23 10/01/24 09/26/24 History cholecalciferol (vitamin D3) 50 50 mcg PO DAILY 05/17/23 10/01/24 05/30/23 History mcg (2,000 unit) capsule (Vitamin D3) diclofenac sodium 1 % topical gel 2 g topical QID PRN Pain 05/17/23 10/01/24 Unknown History hydrochlorothiazide 12.5 mg capsule 25 mg PO QAM 05/17/23 10/01/24 05/30/23 History isosorbide mononitrate 30 mg 90 mg PO DAILY 05/17/23 10/01/24 05/31/23 History tablet,extended release 24 hr metoprolol succinate 50 mg 50 mg PO DAILY 05/17/23 10/01/24 10/01/24 05:00 History tablet,extended release 24 hr multivitamin 1 tab PO DAILY 05/17/23 10/01/24 05/30/23 History nitroglycerin 0.4 mg sublingual 0.4 mg sublingual DIRECTED 05/17/23 10/01/24 09/20/24 History tablet omeprazole 40 mg capsule,delayed 40 mg PO DAILY 05/17/23 10/01/24 05/31/23 History release rosuvastatin 20 mg tablet 20 mg PO BEDTIME 05/17/23 10/01/24 05/30/23 History pregabalin 75 mg capsule 75 mg PO BID 09/29/24 10/01/24 10/01/24 05:00 History Assessment and Plan Assessment Anesthesia Assessment: Chart Reviewed Final Anesthetic Review NPO: Yes ASA Class: III Final Preanesthetic Review: Meds/Allgs Chart Reviewed, Consent Obtained/Reviewed and Anes Risks/Benef Reviewed Patient Risk: Intermediate Procedure Risk: Intermediate Anesthetic Plan Anesthetic Plan: GA Disposition: Standard PACU
[2024-09-30 14:53] LABS: Hematocrit 43.6 % (42.0-52.0); Hemoglobin 14.6 g/dl (14.0-18.0); Mean Corpuscular HGB Conc 33.5 g/dl (31.0-36.0); Mean Corpuscular Hemoglobin 30.1 pg (27.0-33.0); Mean Corpuscular Volume 89.9 fL (80.0-98.0); Mean Platelet Volume 10.8 fL (9.4-12.4); Platelet Count 178 X10*3/uL (160-400); Red Blood Count 4.85 X10*6/uL (4.60-5.80); Red Cell Distribution Width 13.5 % (11.0-16.0); White Blood Count 6.3 X10*3/uL (4.8-10.8)
[2024-09-30 15:31] LABS: Anion Gap 10 (12-20); Blood Urea Nitrogen 18 mg/dL (9-16); Calcium 9.7 mg/dL (8.4-10.2); Carbon Dioxide 31 mmol/L (22-29); Chloride 105 mmol/L (96-108); Creatinine Clr Calc Pharmacy 59.5; Estimated Glomerular Filt Rate > 60; Glucose Random 88 mg/dL (60-115); Sodium 142 mmol/L (135-145)
[2024-10-01] VITALS (21 sets, daily range): BP systolic 95–132; BP diastolic 40–76; PULSE 64–91; RESP 14–20; TEMP 36.1–36.8; O2SAT 92–99; BMI 28.1
--- NOTE | ~2024-10-01 | FL_ITS ---
EXAMINATION: FL GUIDANCE ONLY HISTORY: L4-5 OLIF COMPARISON: Correlation is made with plain films of the lumbar spine dated 09/25/2024. TECHNIQUE: Fluoroscopy time: 1 minute, 25.9 seconds. Cumulative Dose: 67.649 mGy. DAP: 17.424 mGym2 Images: 5. FINDINGS: Fluoroscopic spot films of the lumbar spine demonstrate posterior fusion of L4 and L5 with pedicle screws, spinal stabilization rods, and an intervertebral spacer. FL/FL guidance in OR IMPRESSION: Fluoroscopy during procedure. Please see procedure report for additional information. Electronically signed by: Prince Espinoza MD 10/01/2024 10:55 AM EDT
[2024-10-01] MEDS: vancomycin HCL 1,500 MG in 0.9 % Sodium Chloride 500 ML 333.33 MG IV ×2 (06:43→19:39)
[2024-10-01] MEDS: methocarbamoL 750 MG TABLET PO ×2 (06:45→12:28)
[2024-10-01] MEDS: Lactated Ringers 1,000 ML 100 ML IVCONT (06:46)
--- NOTE | 2024-10-01 06:58 | MHC.SHP ---
Pre-Procedural Eval Section A - 24 Hr Update-Section A only Date of Service: 10/01/24 Section B - Complete if H&P > 30 days Chief Complaint: Radiculopathy, lumbar region,back pain Allergies: Allergies Allergy/AdvReac Type Severity Reaction Status Date / Time shellfish derived Allergy Severe Facial Verified 10/01/24 06:13 Swelling Penicillins Allergy Unknown Verified 10/01/24 06:13 Sulfa (Sulfonamide Allergy Unknown Verified 10/01/24 06:13 Antibiotics) Review of Systems Sugical H&P ROS: Negative: Constitution, Cardiovascular, Respiratory, Neurological, Psychiatric, Hem-Onc, Allergic/Immunologic, Gastrointestinal, Genitourinary, Musculoskeletal, Integumentary, Endocrine and Eyes/Ears/Nose/Throat Exam Surgical H&P Exam: Not Evaluated: HEENT, Not Evaluated: Heart, Not Evaluated: Lungs, Not Evaluated: Extremities, Not Evaluated: Abdomen, Not Evaluated: Skin and Not Evaluated: Neurological Exam Comment: THE PATIENT IS AWAKE, ALERT, NO ACUTE DISTRESS. PROPOSED SURGICAL INCISION SITE IS CLEAN, DRY, WITH NO SIGNS OF RECENT TRAUMA. Plan Diagnosis/Plan: Unchanged I have reviewed the history and physical and performed a pertinent physical examination on my patient. No changes have occurred unless specified. PLAN REMAINS THE SAME, L4-5 OLIF. Time Spent With Patient Time: Total time managing care of this patient today _7___ minutes.
[2024-10-01] MEDS: Acetaminophen 1,000 MG/100 ML PIGGYBACK 400 MG IV (08:12)
--- NOTE | 2024-10-01 09:48 | W.PM.OPN ---
Operative Note Operative Note Date of Service: 10/01/24 Narrative: Preop Diagnosis: 1.) L4-5 spondylolisthesis 2.) Back pain with neurogenic claudication Procedure: 1) L4-5 discectomy, arthrodesis and implantation cage through an anterolateral, retroperitoneal approach 2) L4-5 posterior instrumented fusion 3) allograft 4) Injection of 10 cc of Exparel at the transverse process for a muscular erector spinae block and additional Exparel in paravertebral tissue for postop management Consent Informed Consent was obtained for this operation. I have explained the nature, purpose and benefits of the operation. I have discussed the risks and benefit of the operation including possible complications or adverse events with patient/family. Alternative(s) were discussed with the patient with their relative benefits and risks as well as the consequences of not accepting the operation were included in obtaining consent. Surgeon: ANGÉLICA MONTE MD, PHD Procedure Assisted By: BEVERLY Avalos Description of Procedure This 79-year-old male continues to complain of back pain radiating down his left leg. He had a synovial cyst resected in February of 2024. Subsequent imaging shows severe L4-5 lumbar degenerative disc disease, severe bilateral foraminal stenosis, and the development of a spondylolisthesis. The patient was offered an oblique lumbar interbody fusion L4-5 to stabilize the segment and to indirectly decompress the nervous structures. The procedure and complications were explained. The patient was consented. The patient was brought to the operating room and endotracheally intubated. The patient was turned in a lateral position with the left side up. Prep and drape was done followed by timeout. A small incision was made in the left lower abdominal quadrant. The muscle fascia was opened after which the 3 muscle layer was split to enter the retroperitoneal space. Dilators were docked in the anterior one third of the L4-5 disc space followed by a retractor. The retractor was opened. The L4-5 disc space was exposed. An annulotomy was done after which an elevator Neely was used to release the disc material from its endplates and to perforate the contralateral side. A partial discectomy was done. An 8 mm and 10 mm height trial implant was inserted. The discectomy was completed. The endplates were prepared. An 10 mm x 50 mm with the 0 degree lordosis 4 web cage filled with allograft was inserted into the disc space under fluoroscopic guidance. This resulted in correction of the disc height and decompression of the bilateral foramina. The retractor was removed. Hemostasis was done. The incision was closed in 2 layers. Steri-Strips used to approximate incision. An OpSite with Tegaderm was used to cover the incision. This marked first part of the procedure. The patient was turned prone on the Casper spine table. 2C arms were installed for fluoroscopy. Prep and drape was done followed by a second timeout. Injection of 10 cc of Exparel at the bilateral L4 transverse processi for a muscular erector spinae block. Two paramedian incisions were made lateral from the L4 and L5 pedicles. The muscle fascia was opened after which the muscle layer was split bluntly to expose the posterolateral gutter. The following steps were taken. A pediguard tap was used to create a transpedicular trajectory into the vertebral body. A K wire was placed. A specially designed instrument was advanced over the K wire to decorticate the posterolateral gutter in preparation for the posterolateral fusion. A pedicle screw was advanced over the K wire and the K wire was removed. The steps were done for the bilateral L4 and L5 pedicles. A total of 4 screws were placed with a diameter of 6.5 x 45 mm. Pedicle screws were connected with 40 mm rene bilaterally and locked down with locking caps. The extension towers were removed. The posterolateral gutter was filled with allograft to complete the posterolateral L4-5 fusion Hemostasis was done and the incision was closed in 2 layers. Steri-Strips were used to approximate the incision. An OpSite with tegaderm was used to cover the incision. All sponge and needle counts were correct. Patient was extubated and transferred in stable is to recovery room. Anesthesia: General Estimated Blood Loss (ml): 50 mL Duration of Surgery: 2 hours Complications: None Postoperative Plan: Admit to inpatient for clinical observation
[2024-10-01] MEDS: HYDROmorphone HCl 0.5 MG/0.5 ML SYRINGE 0.25 MG IVPUSH ×4 (10:25→11:00)
[2024-10-01] MEDS: fentaNYL citrate/PF 100 MCG/2 ML VIAL 25 MCG IVPUSH ×4 (10:27→10:42)
--- OUTSIDE RECORDS SUMMARY | 2024-10-01 11:35 | XMS_ITS | Data Portability ---
Author Organization [place] - [facility] [address] Address [address] [place] [address] Assessment No assessment recorded. Plan of Treatment [...] doxycycline monohydrate 100 mg capsule 2022 023 [facility]/Pharmacy #[id number], [address] [place], [place], [phone], 3 03:30:55 benzonatate 200 mg capsule 2022 023 [facility]/Pharmacy #[id number], [address] [place], [place], [phone], 3 03:30:55 Patient TargetsNo targets recorded. Patient [...] Details Recorded Time Pain in right hand [id number] 9 Active 2022 Dinesh Marsh MD [address] [place] [address], [id number], [address] 3 10:40:54 Contusion of right hand 21259392124469 108 Active 2022 Dinesh Marsh MD [address] [place] [address], [id number], [address] 3 11:59:05 Problem Notes None recorded. 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 Procedure Notes None recorded. Medical Equipment None Reported. Allergies Allergen ID Allergen Name Allergen Category Reaction Reaction Severity Criticality Documentation Date Start Date Code Code System Note Provider Name and Address Organization Details Recorded Time 429530 Substance with sulfonami de structure and antibacte rial mechanism of action (substanc e) medicatio n Not available Not available Not available 05/04/2022 52019 8003 SNOMED Heena Mangin CERTIFIED PERSONAL CHEF null, [place] [facility] [place] 3 10:22:55 218073 Product containin g penicilli n (product) medicatio n Not available Not available Not available 05/04/2022 41442 8001 SNOMED Heena Mangin, CERTIFIED PERSONAL CHEF null, [place] [facility] [place] 3 10:23:19 271454 shellfish derived food,medi cation Not available Not available Not available 05/04/2022 14833 UNK Heena Mangin CERTIFIED PERSONAL CHEF null, [place] [facility] [place] 3 10:23:29 Medications Name Sig Start Date [...] Address Organization Details Last Updated DateTime 3 86420.8 1 g 26.9 kg/m2 175.26 cm 98.2 [degF] 56 /min 16 /min 97 % 97 % 131 mm[Hg] 75 mm[Hg] Heena Rawls LPN [address] 3 10:21:51 Date Recorded Body height Body temperature Heart rate Respiratory rate Oxygen saturation Oxygen saturation in Arterial blood by Pulse oximetry Systolic blood pressure Diastolic blood pressure Provider Name and Address Organization Details Last Updated DateTime 3 175.26 cm 99.3 [degF] 61 /min 16 /min 95 % 95 % 130 mm[Hg] 77 mm[Hg] Judy Crandall RN [address] 16:35:08 Social History Question Answer Notes LastModified by Organizat ion Details LastModified Time Tobacco Smoking Status Never Smoker Heena Rawls LPN [facility], [address] 05/04/2022 10:32:20 What Is Your Level [...] SNOMED-CT Code Diagnosis ICD10 Code Diagnosis Note [id number] Dinesh Madrid MD [facility] [address] [facility] [place] [address] 05/04/2022 10:07:19 05/04/2022 12:15:03 Pain in right hand [id number] 20916 M79.641 Contusion of right hand [id number] 1424729 S60.221A Xray shows no fracture, soft tissue swelling appreciate d.Advised ice packs/heat packs prnTylenol or simialr prn for pain. [id number] Robyn curran MD [facility] [address] [facility] [address] [address] 05/23/2022 16:03:26 05/23/2022 17:13:55 Productive cough-yellow sputum [id number] R09.3 Cough with purulent sputum for over [...] [place] (MEDICARE REPLACEMENT PPO) [id number] Abiodun Colunga [id number] Abiodun Michael Cristine Notes Date Note [...] (joint fusion of thumb) Dinesh remy MD [address] [place] [address], [phone], [address] 05/04/2022 12:01:43 05/23/2022 text/html Upper Respirator y SymptomsReported bypatient.Location[facility]; head Severity:mild Duration:9 days Onset/Timing:gradual [...] and did not help Robyn Reyes MD [address] [place] [address], [phone], [address] 05/23/2022 17:15:39
[2024-10-01] MEDS: oxyCODONE HCl Immed Release 5 MG TABLET 10 MG PO ×2 (12:28→16:34)
[2024-10-01] MEDS: 0.9 % Sodium Chloride 1,000 ML 75 ML IVCONT (12:28)
[2024-10-01] MEDS: Acetaminophen 325 MG TABLET 975 MG PO ×2 (12:28→19:43)
[2024-10-01] MEDS: Ketorolac Tromethamine 15 MG/ML VIAL IVPUSH ×2 (12:29→19:38)
--- NOTE | 2024-10-01 13:02 | PHA.MEDREC ---
Pharmacy Consult ? Medication Reconciliation Pharmacy reviewed med rec done by nursing. Spoke with pt spouse and she confirmed the pt is no longer taking the Diazepam or Lorazepam and those were only one time doses for MRI appts. PT also confirmed the pt is no longer taking Gabapentin and is now taking Pregabalin 75mg BID. Patient is taking the Hydrochlorothiazide 12.5mg tabs 2 (35mg) tabs daily now and the stated that increased from 1 to 2 tabs in the last few weeks by the pt
--- NOTE | 2024-10-01 13:35 | PHA.MEDREC ---
Addendum entered by Shruthi Greenwood RPh 10/01/24 13:40: Reviewed by [facility]. HCTZ dose fo 25mg daily. Original Note: Pharmacy Consult ? Medication Reconciliation Pharmacy reviewed med rec done by nursing. Spoke with pt spouse and she confirmed the pt is no longer taking the Diazepam or Lorazepam and those were only one time doses for MRI appts. PT also confirmed the pt is no longer taking Gabapentin and is now taking Pregabalin 75mg BID. Patient is taking the Hydrochlorothiazide 12.5mg tabs 2 (35mg) tabs daily now and the stated that increased from 1 to 2 tabs in the last few weeks by the pt Dr. Pt confirmed pt is now taking Omeprazole 40mg tabs 1 QD now instead of 2 BID.
[2024-10-01] MEDS: ondansetron HCL 4 MG/2 ML VIAL IVPUSH (15:01)
[2024-10-01] MEDS: HYDROmorphone HCl 1 MG/ML SYRINGE IVPUSH (15:02)
[2024-10-01] MEDS: Atorvastatin Calcium 80 MG TABLET PO (19:43)
[2024-10-01] MEDS: amLODIPine Besylate 10 MG TABLET PO (19:43)
[2024-10-01] MEDS: Pregabalin 75 MG CAPSULE PO (19:44)
[2024-10-01] MEDS: Docusate Sodium 100 MG CAPSULE PO (19:49)
[2024-10-01] MEDS: oxyCODONE HCl Immed Release 5 MG TABLET PO (22:44)
[2024-10-02] MEDS: 0.9 % Sodium Chloride 1,000 ML 75 ML IVCONT (02:56)
[2024-10-02] MEDS: Acetaminophen 325 MG TABLET 975 MG PO ×2 (02:56→08:49)
[2024-10-02] MEDS: Ketorolac Tromethamine 15 MG/ML VIAL IVPUSH (02:59)
[2024-10-02 04:04] VITALS: BP 126/66; PULSE 91; RESP 20; TEMP 37.1; O2SAT 92
[2024-10-02] MEDS: Omeprazole 40 MG CAPSULE.DR PO (05:51)
[2024-10-02] MEDS: oxyCODONE HCl Immed Release 5 MG TABLET PO ×2 (07:07→11:16)
[2024-10-02 07:46] VITALS: BP 126/66; PULSE 91; O2SAT 92
[2024-10-02 08:01] VITALS: BP 129/80; PULSE 83; RESP 17; TEMP 36.8; O2SAT 95
--- NOTE | 2024-10-02 08:03 | HO.POSTANES ---
Post Anesthesia Evaluation Post Anesthesia Evaluation Date of Service: 10/02/24 Vital Signs: Vital Signs Temp Pulse Resp BP Pulse Ox O2 Del Method 10/02/24 08:01 98.2 F 83 17 129/80 95 Room Air 10/02/24 07:46 91 126/66 92 10/02/24 04:04 98.8 F 91 20 126/66 92 Room Air 10/01/24 23:48 98.0 F 91 20 132/67 93 Room Air 10/01/24 21:52 97.9 F 88 16 120/63 93 Room Air Anesthesia: General Endotracheal-GETA Mental Status: Awake Pain Control: Satisfactory Nausea/Vomiting: None Hydration: Adequate Anesthesia-Related Issues: No Anes. Related Issues
[2024-10-02] MEDS: hydroCHLOROthiazide 25 MG TABLET PO (08:50)
[2024-10-02] MEDS: Isosorbide Mononitrate 30 MG TAB.ER.24H 90 MG PO (08:50)
[2024-10-02] MEDS: Pregabalin 75 MG CAPSULE PO (08:50)
[2024-10-02] MEDS: Metoprolol Succinate ER 50 MG TAB.ER.24H PO (08:50)
[2024-10-02] MEDS: Cholecalciferol (Vitamin D3) 25 MCG TABLET 50 MCG PO (08:50)
[2024-10-02] MEDS: Multivitamin TABLET 1 TAB PO (08:50)
[2024-10-02] MEDS: Docusate Sodium 100 MG CAPSULE PO (08:50)
--- NOTE | 2024-10-02 09:13 | P.DS_ITS ---
DS: Providers Provider Date of Service: 10/02/24 Date of admission: 10/01/24 10:05 Date of discharge: 10/02/24 Primary care physician: Unknown Physician DS: Summary Time Attestation Discharge Coordination Time (in mins): 15 Quality: Safe Use of Opioids Does Pt have an Active Cancer Diagnosis on the Problem List?: No Quality: Stroke Does the patient have a stroke diagnosis?: No Physical Exam Vital Signs: Vital Signs: Last Vital Signs Temp 98.2 F 10/02/24 08:01 Pulse 83 10/02/24 08:01 Resp 17 10/02/24 08:01 BP 129/80 10/02/24 08:01 Pulse Ox 95 10/02/24 08:01 O2 Del Method Room Air 10/02/24 08:01 O2 Flow Rate 1.5 10/01/24 12:23 BMI result Body Mass Index 28.1 Discharge Plan Discharge Anticipated Discharge Date/Time: 10/02/24 09:13 Patient Disposition: Home, Self-Care Discharge Diagnosis: S/P L4-5 Lumbar fusion Referrals: Physician,Unknown J [Primary Care Provider] - 1 Week Discharge Medications: New oxycodone 5 mg tablet See Rx Instructions .ROUTE .COMPLEX PRN (Reason: pain) Qty: 30 0RF Rx Instructions: Take 1-2 tablets by mouth; Partial Fill upon patient request. Continued multivitamin Tablet 1 tab PO DAILY celecoxib 200 mg capsule 200 mg PO DAILY metoprolol succinate 50 mg tablet extended release 24 hr 50 mg PO DAILY isosorbide mononitrate 30 mg tablet extended release 24 hr 90 mg PO DAILY omeprazole 40 mg capsule,delayed release(DR/EC) 40 mg PO DAILY@0630 amlodipine 10 mg tablet 10 mg PO BEDTIME hydrochlorothiazide 12.5 mg capsule 25 mg PO DAILY nitroglycerin 0.4 mg tablet, sublingual 0.4 mg sublingual Q5M PRN (Reason: Chest Pain) rosuvastatin 20 mg tablet 20 mg PO BEDTIME cholecalciferol (vitamin D3) [Vitamin D3] 50 mcg (2,000 unit) Capsule 50 mcg PO DAILY acetaminophen 650 mg Tablet Extended Release 650 mg PO DAILY PRN (Reason: Pain) pregabalin 75 mg capsule 75 mg PO BID Held aspirin 81 mg Tablet,Delayed Release (Dr/Ec) 81 mg PO BEDTIME Hold Instructions: Resume on 06/16/25. diclofenac sodium 1 % Gel 2 g TOPICAL QID PRN (Reason: Pain) Hold Instructions: Resume on 10/03/24. Do not put directly on incisions Rx Instructions: apply to single elbow, wrist or hand; for hand includes palm/fingers/back of hand Discharge Orders: Discharge Order (Routine); Ordered 10/02/24 Ordered By: Perez Lowe Diet: Advance to usual diet Activity on Discharge: As tolerated Stand Alone Forms: Patient Portal Discharge page Print Language: Turkmen Activity Restrictions/Additional Instructions: After your spinal surgery we ask you to observe the following restrictions/guidelines: Activity: It is normal to feel some discomfort as you increase your activity, but that will improve with time. We ask you avoid heavy lifting or acitivities that cause pain. As a general rule, 8lbs is a safe limit for lifting right after surgery. Walk as much as you feel comfortable but not to exhaustion. You will feel extra tired the first few days after surgery. Stay well hydrated. It is OK to walk up and down stairs You may return to driving when you are off narcotics (such as vicodin, oxycodone, dilaudid, etc), and you are back to normal functional capacity. If you have any concerns please check with office before driving. Return to work is specific to each patient and each surgery, so please speak with your doctor/PA at first follow up. Please bring paperwork such as FMLA at that time if you need it filled out. Medications: Please hold your aspirin until 10/07/24. We recommend you take 1,000mg Tylenol every 8 hours for the first few weeks after surgery, if you do not have any liver issues and can tolerate this medication. Do not exceed 4,000mg daily. We will give you a short supply of narcotics after surgery (usually one weeks worth). If you need more please call the office but do not use more than prescribed. You will need to give our office 48 hours notice if you need narcotics refilled and we do not fill narcotics on weekends or evenings. If you are on a narcotic, it is a good idea to take a stool softener such as colace or senna to avoid constipation If you take blood thinner such as aspirin, Plavix, Coumadin, Effient, Eliquis etc for conditions such as Afib, DVT, Pulmonary embolus, coronary disease, stents etc please speak with your surgeon about specific details as to when you can resume these medications. You can resume NSAIDs on post op day 1 (eg: Motrin, Naproxen, etc). Follow up: Please call the office, , after surgery to arrange a 3 week follow up for wound check. Wound Care: You may remove your dressing on the first day after surgery. ?You may ?leave open to air. Please do not remove the steri strips underneath. they will fall off on their own in one week. IT IS NORMAL FOR THE WOUND TO OOZE OR BE BLOODY FOR A FEW DAYS AFTER SURGERY. ?IF THIS HAPPENS JUST PLACE NEW DRESSING OVER IT TO AVOID STAINING CLOTHES. You may shower on post op day # 1 We ask that you do not let the water soak the wound. If it does get wet, just towel dry lightly. Please do not scrub your incision or place any type of chemical/ointment on the wound. No tub baths, pools or jacuzzis for one month. If you have any leaking or redness from your wound, or fevers, please call the office. Care Plan Goals: Return to normal activity as tolerated Health Concerns: None Plan of Treatment: Follow-up in clinic in 2-3 weeks Assessment: POD: 1 Procedure: L4-5 OLIF Abiodun is a pleasant 79 year old male who underwent L4-[address] Guevara. He was seen sitting upright in bedside chair eating breakfast this morning. He reports that he is up, walking around, is otherwise doing well. He feels his symptoms are much better than pre-operatively. He still reports mild pain in his low back, with good relief with pain medication. He is voiding well &tolerating his current diet. Afebrile, vital signs stable. He has about 3/5 strength (antigravity) with left sided iliopsoas testing, but has no meaningful strength against resistance. He states that this is due to pain he feels in his low back when engaging the muscle. Back dressings have some staining without signs of hematoma. No active sanguineous drainage. Area is dry. Plan:Pleasant 79 year old male who underwent L4-[address] Guevara. His left iliopsoas pain limiting weakness is likely secondary to the surgical approach and will self resolve in the coming weeks. He has a walker at home which he can utilize as needed. Patient meets criteria to be medically discharged home. He was seen this morning by Dr. Guevara. I will [place] [facility]. He should follow up with us in clinic in 2-3 weeks. Perez Guevara MD,PhD [facility]
--- NOTE | 2024-10-02 09:55 | MHC.CM.PN ---
IMM DELIVERED PT LIVES WITH SPOUSE, USES A CANE AT BASELINE. NO SERVICES. +HCP, COPY AT HOME. PCP PROVIDER AT [facility] () DP: PT HAS BEEN MEDICALLY CLEARED FOR DC HOME, NO SERVICES. PT'S DAUGHTER WILL TRANSPORT.
== END 2024-10-02 11:50 | disposition home or self-care (01) | DRG 451 ==
LOC: HO.SSSA 10:16 → HO.S3 10:50
PROVIDERS: Nurse Practitioner; Absent Provider Physician Assistant; Admitting Provider Physician Assistant; Visit Provider Neurological Surgery
PROC: 0SG00A0 Fusion of Lumbar Vertebral Joint with Interbody Fusion Device, Anterior Approach, Anterior Column, Open Approach (ICD-10-PCS; principal; 2024-10-01 07:30)
DX: M48.062 Spinal stenosis, lumbar region with neurogenic claudication (principal); I25.10 Atherosclerotic heart disease of native coronary artery without angina pectoris; G47.33 Obstructive sleep apnea (adult) (pediatric); Z79.82 Long term (current) use of aspirin; Z79.899 Other long term (current) drug therapy
CPT/HCPCS: 36415; 80048; 85027; 86850; 86900; 86901; 93005; 97110; 97116; 97162; 97530; C1713; C1889; J0131; J0665; J0666; J1100; J1171; J1885; J2003; J2371; J2405; J2704; J3010; J3371; L8699

== ENCOUNTER 2024-10-22 13:38 | Outpatient (AMB) | payer MEDICARE, SELFPAY ==
--- OUTSIDE RECORDS SUMMARY | 2024-10-18 23:59 | XMS_ITS | Continuity of Care Document ---
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 Name Role Phone Vineet Lott Primary Care Physician [phone] Encounter [facility] NBR [id number] Date(s): 09/18/24 - 10/18/24 [facility] [address] [place], [place] [address] Attending Physician: Chandan Mao Admitting Physician: Chandan [...] 9:10:00 AM EST, Route to Pharmacy Electronically, [facility]/pharmacy #[id number], Partial fill upon patient requestif the prescription [...] Refills, Maintenance, 06/06/24 9:10:00 AM EST, Capsule, [facility]/pharmacy #[id number], Partial fill upon patient request if [...] 0 Refills, Maintenance, 06/06/24 4:07:00 PM EST, [facility]/pharmacy #[id number], Partial fill upon patient request if the prescription is for a schedule II opioid drug., 175, cm, 05/08/24 11:00:00 EST, Height, 86.8, kg, 04/29/24 12:59:00 EST, Dry Weight Start Date: 06/06/24 Status: Ordered Quantity: 50.0 Unit: g Repeat number: 1 gabapentin 300 mg oral capsule 1, capsule, By Mouth, 3 times a day, # 90 capsule, Refills 3, Maintenance, 10/06/24 1:03:00 PM EDT, Route to Pharmacy Electronically, [facility] ST[id number], 175, cm, 08/12/24 13:43:00 EDT, Height, 86.8, kg,04/29/24 12:59:00 EST, Dry Weight Start Date: 10/06/24 Status: Ordered Quantity: 90.0 Unit: capsule Repeat number: 1 hydroCHLOROthiazide 12.5 mg oral capsule 2 capsule = 25 mg, By Mouth, Daily, # 90 capsule, 0 Refills, Maintenance, 09/04/24 3:09:00 PM EDT, [id number], 175, cm, 08/12/24 13:43:00 EDT, Height, 86.8, kg, 04/29/24 12:59:00 EST, Dry Weight Start Date: 09/04/24 Status: Ordered Quantity: 90.0 Unit: capsule Repeat number: 1 isosorbide mononitrate 30 mg oral tablet, extended release 90 mg, 3, tablet, By Mouth, Daily, # 270 tablet, Refills 1, Tot. Refills 1, Maintenance, 09/04/24 2:06:00 PM EDT, Route to Pharmacy Electronically, [facility]/pharmacy #[id number], Partial fill upon patient request if the prescription is for a schedule II opioid drug., 175, cm, 08/12/24 13:43:00 EDT, Height, 86.8, kg, 04/29/24 12:59:00 EST, Dry Weight Start Date: 09/04/24 Stop Date: 03/03/25 Status: Ordered Quantity: 270.0 Unit: tablet Repeat number: 2 Metoprolol Succinate ER 50 mg oral tablet, extended release 1, tablet, By Mouth, Daily, # 90 tablet, Refills 1, Maintenance, 09/25/24 11:15:00 AM EDT, Route to Pharmacy Electronically, [id number], 175, cm, 08/12/24 13:43:00 EDT, Height, 86.8, kg, 04/29/24 12:59:00 EST, Dry Weight Start Date: 09/25/24 Status: Ordered Quantity: 90.0 Unit: tablet Repeat number: 1 Nitroglycerin 0 Refills, Maintenance, 09/04/19 4:12:00 PM EDT Start Date: 09/04/19 Status: Ordered Repeat number: 1 omeprazole 40 mg oral enteric coated capsule 1 capsule = 40 mg, By Mouth, 2 times a day, # 180 capsule, 1 Refills, Maintenance, 09/04/24 4:07:00 PM EDT, Suspension, [facility]/pharmacy #[id number], Partial fill upon patient request if the prescription is fora schedule II opioid drug., 175, cm, 08/12/24 13:43:00 EDT, Height, 86.8, kg, 04/29/24 12:59:00 EST, Dry Weight Start Date: 09/04/24 Stop Date: 03/03/25 Status: Ordered Quantity: 180.0 Unit: capsule Repeat number: 2 pregabalin 75 mg oral capsule 1 capsule = 75 mg, By Mouth, 2 times a day, # 60 capsule, 0 Refills, Maintenance, 09/18/24 1:40:00 PM EDT, Capsule, Partial fill upon patient request if the prescription is for a schedule II opioid drug. Start Date: 09/18/24 Status: Ordered Quantity: 60.0 Unit: capsule Repeat number: 1 rosuvastatin 20 mg oral tablet = 20 mg, By Mouth, Daily, # 90 tablet, 1 Refills, Maintenance, 09/04/24 4:07:00 PM EDT, Tablet, [facility]/pharmacy #[id number], Partial fill upon patient request if the prescription is for a schedule II opioid drug., 175, cm, 08/12/24 13:43:00 EDT, Height, 86.8, kg, 04/29/24 12:59:00 EST, Dry Weight Start Date: 09/04/24 Stop Date: 03/03/25 Status: Ordered Quantity: 90.0 Unit: tablet Repeat number: 2 Vitamin D3 oral tablet 1 tablet = [...] Team Personnel Name: Fozia Alvarado RN Position: [facility] SN RN Member Role: Primary Care Nurse Name: Jeferson Chapman RN Position: S RN Member Role: Primary Care Nurse Name: Vineet Lott Position: [facility] PCO Associate Professional Member Role: PCP Address: [address] [place] [id number] Telecom: Name: Ela RNCourtney Position: [facility] SN RN Member Role: Primary Care Nurse Name: Iqra Urbina RN Position: [facility] RN Member Role: Primary Care Nurse Name: Dada Hernandez RN Position: [facility] RN Member Role: Primary Care Nurse Name: Rachel Grant RN Position: [facility] RN Member Role: Primary Care Nurse Name: Maida Weinstein RN Position: [facility] RN Member Role: Primary Care Nurse Care Team Related Persons Name: SHARONDA JONAS Name: GISELLE FLORENTINO Insurance Providers Guarantor name: ARSEN LIZETTLEXUS Health Plan Information #: 1 Payer: [facility] PPO Payer Identifier: BERENICE Member Number: [id number] Group Number: [id number] Subscriber Identifier: [id number] Relationship to Subscriber: self Coverage Type: Medicare PPO Coverage Verification Date: Telecom: NA Address:
--- NOTE | 2024-10-22 14:13 | A.SPINEOV_ITS ---
Intake Visit Reasons: 1st post op Intake Note: Mr. 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 Guevara a few weeks ago. Overall he has done very well since his surgery, and states that his leg pain has completely resolved. He still has quite a bit of axial low back pain. In the immediate postoperative. While in the floor, he had some difficulties moving his left leg. Thankfully his strength has returned in his leg, however he does state that he still occasionally will find himself non engaging full strength of the leg when attempting to ambulate. For this reason he continues to ambulate with the assistance of a cane when outside of his home. He has not been using his oxycodone medication as it sounds like it is a bit too strong for his current pain level. He did inquire about potentially having something else prescribed for pain that is not as strong. He asked several questions regarding the postoperative healing course, all of which I answered to the best of my ability. No new neurological deficits. The patient ambulates well and rises from a seated position without difficulty. His lateral and posterior incision sites are closed and well healing with no signs of drainage or erythema. I would like to follow up with Abiodun again in 6 weeks and obtain a set of x- rays. He inquired about having a carpal tunnel release done in the near future, and I told him we could discuss this at his next appointment as well. I will send in a prescription for tramadol for the patient as he states this has worked well in the past. Perez Guevara MD,PhD [facility] Medications: New tramadol 50 mg PO Q6H PRN 30 tabs 0RF pain Discontinued oxycodone Discontinued Reason: Doctor's Order Take 1-2 tablets by mouth; Partial Fill upon patient request. 30 tabs 0RF pain Coding Level of Care Code Global (37480) Diagnoses Status post lumbar spine surgery for decompression of spinal cord Z98.890
--- OUTSIDE RECORDS SUMMARY | 2024-10-22 14:15 | XMS_ITS | Clinical Summary ---
Author Organization [facility] Address [address] [place] [address] Care Team Providers Care Solutions Architect Name Role Phone Unavailable Primary Care Provider Unavailabl e Social History Tobacco Use Types Packs/Day Years Used Date Smoking Tobacco: Never Assessed Sex and Gender Information Value Date Recorded Sex Assigned at Not on file Legal Sex Male 10:46 AM EDT Gender Identity Not on file Sexual Orientation [...]
--- OUTSIDE RECORDS SUMMARY | 2024-10-22 14:15 | XMS_ITS | Data Portability ---
[facility] [address] Address [address] [place] [address] Assessment No assessment recorded. Plan of Treatment [...] doxycycline monohydrate 100 mg capsule 2022 023 [facility]/Pharmacy #[id number], [address] [place], [place], [phone], 3 03:30:55 benzonatate 200 mg capsule 2022 023 [facility]/Pharmacy #[id number], [address] [place], [place], [phone], 3 03:30:55 Patient TargetsNo targets recorded. Patient InstructionsNo instructions recorded. Reason for Referral None Reported. Results Created Date Observation Date Name Description Value Unit Range Abnormal Flag Note LastModifiedBy Organization Detail LastModifiedTime 05/04/19 23 05/04/2022 XR, thumb No observ ation record ed. BARCODE Not Available 01/12/ 2023 15:20:46 Result Notes None recorded. Problems Name Problem SNOMED Code Status Onset Date Resolution Date Notes Provider Name and Address Organization Details Recorded Time Pain in right hand 34630721846278 9 Active 2022 Dinesh Marsh MD [address] [place] [address], [phone], [address] 3 10:40:54 Contusion of right hand 43306161816057 108 Active 2022 Dinesh Marsh MD [address] [place] [address], [phone], [address] 3 11:59:05 Problem Notes None recorded. 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 Procedure Notes None recorded. Medical Equipment None Reported. Allergies Allergen ID Allergen Name Allergen Category Reaction Reaction Severity Criticality Documentation Date Start Date Code Code System Note Provider Name and Address Organization Details Recorded Time 975918 Substance with sulfonami de structure and antibacte rial mechanism of action (substanc e) medicatio n Not available Not available Not available 05/04/2022 72319 8003 SNOMED Heena Mangin, STORE MANAGEMENT TRAINEE null, [facility] [place] 3 10:22:55 487095 Product containin g penicilli n (product) medicatio n Not available Not available Not available 05/04/2022 83966 8001 SNOMED Heena Mangin, STORE MANAGEMENT TRAINEE null, [place] [facility] [place] 10:23:19 180076 shellfish derived food,medi cation Not available Not available Not available 05/04/2022 49014 UNK Heena Mangin, STORE MANAGEMENT TRAINEE null, [facility] [place] 3 10:23:29 Medications Name Sig Start Date [...] Address Organization Details Last Updated DateTime 3 51888.8 1 g 26.9 kg/m2 175.26 cm 98.2 [degF] 56 /min 16 /min 97 % 97 % 131 mm[Hg] 75 mm[Hg] Heena Rawls LPN [address] 3 10:21:51 Date Recorded Body height Body temperature Heart rate Respiratory rate Oxygen saturation Oxygen saturation in Arterial blood by Pulse oximetry Systolic blood pressure Diastolic blood pressure Provider Name and Address Organization Details Last Updated DateTime 3 175.26 cm 99.3 [degF] 61 /min 16 /min 95 % 95 % 130 mm[Hg] 77 mm[Hg] Judy Crandall RN [address] 16:35:08 Social History Question Answer Notes LastModified by Organizat ion Details LastModified Time Tobacco Smoking Status Never Smoker Heena Rawls LPN [facility], [address] 05/04/2022 10:32:20 What Is Your Level [...] SNOMED-CT Code Diagnosis ICD10 Code Diagnosis Note [id number] Dinesh Madrid MD [facility] PCP [address] [facility] [place] [address] 05/04/2022 10:07:19 05/04/2022 12:15:03 Pain in right hand [id number] 20839 M79.641 Contusion of right hand [id number] 6331213 S60.221A Xray shows no fracture, soft tissue swelling appreciate d.Advised ice packs/heat packs prnTylenol or simialr prn for pain. [id number] Robyn curran MD [facility] [address] [facility] [address] [address] 05/23/2022 16:03:26 05/23/2022 17:13:55 Productive cough-yellow sputum [id number] R09.3 Cough with purulent sputum for over [...] [place] (MEDICARE [place]PLACEMENT PPO) [id number] Abiodun Colunga [id number] Abiodun Colunga Notes Date Note Type [...] (joint fusion of thumb) Dinesh remy MD [address] [place] [address], [phone], [address] 05/04/2022 12:01:43 05/23/2022 text/html Upper Respirator y SymptomsReported bypatient.[facility]; head Severity:mild Duration:9 days Onset/Timing:gradual [...] and did not help Robyn Reyes MD [address] [place] [address], [phone], [address] 05/23/2022 17:15:39
--- OUTSIDE RECORDS SUMMARY | 2024-10-22 14:15 | XMS_ITS ---
Author Organization [facility] Address [address] [place] [address] Care Team Providers Care Costing Analyst Name Role Phone Queenie De La Rosa MD Primary Care Provider Transitional Care Management Status:Identified (Enrolling) Start date:10/02/2024 Enrollment reason:Identified using hospital discharge data Case Team Name Relationship Phone Kp Pagan LPN Care Manager(Responsible Staff) Continued Care and Services Coordination
== END 2024-10-22 14:46 | disposition home or self-care (01) ==
LOC: HO.HNS 13:38
PROVIDERS: Visit Provider Physician Assistant
DX: Z98.890 Other specified postprocedural states (principal)
CPT/HCPCS: 99024

== ENCOUNTER → 2024-10-22 13:38 | Outpatient (BNVA) | payer MEDICARE, SELFPAY | PROVIDERS: Visit Provider Physician Assistant | DX: Z47.89 Encounter for other orthopedic aftercare (principal); Z98.890 Other specified postprocedural states | CPT/HCPCS: 99212 ==

== ENCOUNTER 2024-12-04 11:24 | Outpatient (AMB) | payer MEDICARE, SELFPAY ==
--- NOTE | 2024-12-04 11:36 | HO.SPINEOV ---
Intake Visit Reasons: 2nd post op Intake Note: Mr. Colunga is here today for his 2nd post-op visit. Allergies shellfish derived Allergy (Severe, Verified 10/01/24 06:13) Facial Swelling Penicillins Allergy (Verified 10/01/24 06:13) Unknown Sulfa (Sulfonamide Antibiotics) Allergy (Verified 10/01/24 06:13) Unknown Assessment & Plan Assessment & Plan (1) S/P spinal surgery: Code(s): Z98.890 - Other specified postprocedural states Category: Surgical Plan Procedure: L4-5 OLIF Abiodun comes in today for his second post-op visit after having L4-[address] Guevara on 10/01/24. He reports that he still has quite a bit of low back pain. Despite this he has continued to ambulate independently and has been completing basic activities of daily living around the home. Given this, he has tried to limit his activity as much as he can, and has not been engaging in meaningful activities such as golfing for fear of disrupting the healing process. He was accompanied by his to this visit, and they both asked several questions regarding the postoperative healing course, all of which I answered to the best of my ability. He obtained a set of X-rays during this visit which shows stable placement of his surgical instrumentation. No new neurological deficits. The patient ambulates well and rises from a seated position without difficulty. I would like to send Abiodun for a course of physical therapy. He will call the clinic after PT to make a follow up appt. Perez Guevara MD,PhD [facility] Orders: Orders XR lumbar spine 4V min Today Z98.890 - Other specified postprocedural states Coding Level of Care Code Global (13506) Diagnoses S/P spinal surgery Z98.890
--- OUTSIDE RECORDS SUMMARY | 2024-12-04 12:31 | XMS_ITS | Clinical Summary ---
Author Organization [facility] Address [address] [place] [address] Care Team Providers Care Plug Stitcher Name Role Phone Unavailable Primary Care Provider [...]
--- OUTSIDE RECORDS SUMMARY | 2024-12-04 12:31 | XMS_ITS ---
Author Name [facility] Organization Unknown Care Team Organization Name Specialty Phone Email Start Date End Da te [facility] Termed, PROVIDER Primary Care 02/28/202211/21
--- OUTSIDE RECORDS SUMMARY | 2024-12-04 12:31 | XMS_ITS | Clinical Summary ---
Author Organization [facility] Address [address] [place] [address] Care Team Providers Care Thermoplastic Technician Name Role Phone Queenie De La Rosa [...] Overview (01/23/2024): Premature atrial contraction Supraventricular tachycardia (CMS/HCC V24) 08/01 Overview (01/23/2024): Supraventricular tachycardia Ventricular premature beats 08/01/2021 Overview (01/23/2024): Ventricular premature beats BPH (benign prostatic hyperplasia) 12/07/2020 Erectile dysfunction 12/07/2020 Overview (01/23/2024): On NitroStat so sildenafil et al contraindicated Mild obstructive sleep apnea 04/04/2019 Overview (01/23/2024): [facility] Home Sleep Apnea Test: Date 03/26/2019; Wt [...] distal LAD stents widely patent. CHOLECYSTECTOMY PROCEDURE: NC LAPAROSCOPY SURG CHOLECYSTECTOMY BACK SURGERY 05/31/2023 PROCEDURE: [...] Comments Zoster Vaccines (1 of 2) 1997 Falls Risk Assessment 04/01/2022 Social Influencers of Health Screening 04/01/2022 RSV Immunization Adult Patients (1 - 1-dose 75+ series) 2022 Hypertension/CHF/CAD Annual BMP Blood Test 12/08/2023 12/07/2022 COVID-19 Vaccine ( season) 2024 12/26/2023, 03/23/2023, 01/09/2022, Additional history exists Depression Screening 04/23/2024 Influenza Vaccine (#1) 2024 , 04/23/2023, 03/23/2023, Additional history exists DTaP,Tdap,and Td Vaccines (3 - Td or Tdap) 09/04/2027 09/03/2017, 03/09/2009 Cholesterol Screening (Lipid Panel) 01/20/2028 01/19/2023 Colorectal Cancer Screening: Colonoscopy 03/14/2029 03/14/2019 Hepatitis C Screening Completed 06/12/2012 Pneumococcal Vaccine: 50+ Years Completed 01/13/2015, 05/09/2012 HIB Vaccines Aged Out No longer eligi [...] / Unknown Historical Provider LAB BLOOD ORDERABLES Omuou l Result * Annual BMP Blood Test (12/07/2022) Pathologist [facility] Annual BMP Blood Test abstracted [facility] Provider HEALTH MAINTENANCE Final Result * Colonoscopy (03/14/2019) [facility] Colonoscopy no interpreta tion,abstr acted Anatomical Region Laterality Modality Other [facility] Provider HEALTH MAINTENANCE Final Result * Hepatitis C Screening (06/12/2012) [facility] Hepatitis C Screening abstracted [facility] Provider HEALTH MAINTENANCE Final Result from Last 3 Months or Most Recently Relevant to Health Maintenance Care Teams Thermoplastic Technician Relationship Specialty Start Date End Date Queenie De La Rosa MD [address] [place] [id number] PCP - General Internal Medicine 06/11/24
== END 2024-12-04 13:20 | disposition home or self-care (01) ==
PROVIDERS: Visit Provider Physician Assistant
DX: Z98.890 Other specified postprocedural states (principal)
CPT/HCPCS: 99024

== ENCOUNTER 2024-12-04 11:24 | Outpatient (REF) | payer MEDICARE, SELFPAY ==
--- NOTE | ~2024-12-04 | XR_ITS ---
EXAMINATION: XR LUMBAR SPINE 4 OR MORE VIEWS HISTORY: Z98.890 - Other specified postprocedural states COMPARISON: Comparison is made with the prior examination dated 09/25/2024. FINDINGS: AP, and neutral, flexion, and extension lateral views of the lumbar spine are submitted. Osseous mineralization is normal. In the interval since the prior study, the patient is status post posterior fusion of L4 and L5 with pedicle screws and spinal stabilization rods. An intervertebral spacer is also noted. There is no abnormal motion with flexion or extension. There is mild degenerative disc disease with disc space narrowing and osteophyte formation. The visualized paraspinal soft tissues are unremarkable. XR/XR lumbar spine 4V min IMPRESSION: Status post posterior fusion of L4 and L5. No abnormal motion with flexion or extension. Electronically signed by: Prince Espinoza MD 12/04/2024 03:15 PM EDT
== END 2024-12-04 11:25 | disposition home or self-care (01) ==
LOC: HO.HOSX 11:24
PROVIDERS: Visit Provider Physician Assistant
DX: Z98.890 Other specified postprocedural states (principal); Z98.1 Arthrodesis status
CPT/HCPCS: 72110; 99212

== ENCOUNTER → 2024-12-04 12:23 | Outpatient (BNV) | payer MEDICARE, SELFPAY | PROVIDERS: Visit Provider Radiology Diagnostic Radiology | DX: Z98.890 Other specified postprocedural states (principal) | CPT/HCPCS: 72110 ==